=== PATIENT | male | born 1960 | race Caucasian/White ===

== ENCOUNTER 2021-09-15 17:29 | Inpatient (IN) | payer MEDICAID ==
[~2021-09-15] VITALS: Ht 183 cm; Wt 188.8 kg
[2021-09-15] MEDS ORDERED: oxyCODONE/APAP 5/325MG (PERCOCET 5) TABLET PO ONE (17:45)
[2021-09-15 17:58] LABS: BASOPHILS # (AUTO) 0.1 10^3/uL (0.0-0.1); BASOPHILS % (AUTO) 1 % (0-10); EOSINOPHILS # (AUTO) 0.1 10^3/uL (0.0-0.3); EOSINOPHILS % (AUTO) 0 % (0-10); HEMATOCRIT 37 % (40-54); HEMOGLOBIN 11.2 g/dL (13.3-17.7); LYMPHOCYTES # (AUTO) 1.6 10^3/uL (1.0-4.0); LYMPHOCYTES % (AUTO) 8 % (12-44); MEAN CORPUSCULAR HEMOGLOBIN 27 pg (25-34); MEAN CORPUSCULAR HGB CONC 30 g/dL (32-36); MEAN CORPUSCULAR VOLUME 88 fL (80-99); MEAN PLATELET VOLUME 10.1 fL (9.0-12.2); MONOCYTES # (AUTO) 1.6 10^3/uL (0.0-1.0); MONOCYTES % (AUTO) 8 % (0-12); NEUTROPHILS # (AUTO) 16.9 10^3/uL (1.8-7.8); NEUTROPHILS % (AUTO) 83 % (42-75); PLATELET COUNT 561 10^3/uL (130-400); WHITE BLOOD COUNT 20.5 10^3/uL (4.3-11.0)
[2021-09-15 18:09] LABS: ALBUMIN 2.9 GM/DL (3.2-4.5)
--- NOTE | 2021-09-15 18:10 | ED Lower Extremity ---
General Chief Complaint: Lower Extremity Stated Complaint: LEGS BLEEDING Source: patient, EMS Exam Limitations: no limitations (ANNIE LOGAN APRN) History of Present Illness Date Seen by Provider: Sep 15, 2021 Time Seen by Provider: 18:06 Initial Comments to ER by EMS from [facility] with reports of bleeding wounds to bilateral lower extremities. He has known cellulitis for several months. He just arrived here to [facility] on 09/10/2021 from [facility] at his home. No fevers or chills. He is set up to follow-up with Dr. Broderick. Is on oral antibiotics. Was sent to ER just due to concern of bleeding. Onset: last week Severity: moderate Pain/Injury Location: bilateral leg Method of Injury: unknown (ANNIE LOGAN APRN) Allergies and Home Medications Allergies Coded Allergies: No Known Drug Allergies (Unverified , 09/15/21) Patient Home Medication List Home Medication List Reviewed: Yes (ANNIE LOGAN APRN) Review of Systems Constitutional: see HPI EENTM: see HPI Respiratory: no symptoms reported Cardiovascular: no symptoms reported Genitourinary: no symptoms reported Musculoskeletal: no symptoms reported Skin: see HPI Psychiatric/Neurological: No Symptoms Reported (ANNIE LOGAN APRN) Physical Exam Vital Signs Vital Signs - First Documented 09/15/21 17:29 Temp 36.7 Pulse 134 Resp 24 B/P (MAP) 102/86 (91) Pulse Ox 98 O2 Delivery Nasal Cannula O2 Flow Rate 4.00 (BERENICE OCAMPO MD) Vital Signs Capillary Refill : (ANNIE LOGAN APRN) Height, Weight, BMI Height: '" Weight: lbs. oz. kg; BMI Method: General Appearance: WD/WN, no apparent distress, obese, other (Dyspneic) HEENT: PERRL/EOMI, normal ENT inspection Cardiovascular: no murmur, tachycardia Respiratory: lungs clear, normal breath sounds, no respiratory distress, no accessory muscle use Hips: bilateral hip non-tender, bilateral hip normal inspection, bilateral hip normal range of motion Legs: bilateral leg non-tender, bilateral leg normal inspection; left leg other (roughly 25x10 area on left and 60x44tr area of erythema/oozing blood, beefy red wound bases to BLE posteriorly. No purulence. ) Knees: bilateral knee non-tender, bilateral knee normal inspection, bilateral knee normal range of motion Ankles: bilateral ankle pain, bilateral ankle soft tissue tenderness Feet: bilateral foot soft tissue tenderness, bilateral foot swelling Neurologic/Psychiatric: alert, normal mood/affect Skin: normal color, warm/dry Purulent appearing urine within the tubing of his chronic indwelling Yepez catheter. (ANNIE LOGAN APRN) Gastrointestinal: non tender, soft, other (Morbidly obese. Pannus reflections do have some erythema suggestive of yeast infection) Back: normal inspection, no CVA tenderness, no vertebral tenderness (BERENICE OCAMPO MD) Progress/Results/Core Measures Results/Orders Lab Results Laboratory Tests Test 09/15/21 17:45 09/15/21 18:29 09/15/21 18:45 Range/Units White Blood Count 20.5 H 4.3-11.0 10^3/uL Red Blood Count 4.21 L 4.30-5.52 10^6/uL Hemoglobin 11.2 L 13.3-17.7 g/dL Hematocrit 37 L 40-54 % Mean Corpuscular Volume 88 80-99 fL Mean Corpuscular Hemoglobin 27 25-34 pg Mean Corpuscular Hemoglobin Concent 30 L 32-36 g/dL Red Cell Distribution Width 15.9 H 10.0-14.5 % Platelet Count 561 H 130-400 10^3/uL Mean Platelet Volume 10.1 9.0-12.2 fL Immature Granulocyte % (Auto) 1 % Neutrophils (%) (Auto) 83 H 42-75 % Lymphocytes (%) (Auto) 8 L 12-44 % Monocytes (%) (Auto) 8 0-12 % Eosinophils (%) (Auto) 0 0-10 % Basophils (%) (Auto) 1 0-10 % Neutrophils # (Auto) 16.9 H 1.8-7.8 10^3/uL Lymphocytes # (Auto) 1.6 1.0-4.0 10^3/uL Monocytes # (Auto) 1.6 H 0.0-1.0 10^3/uL Eosinophils # (Auto) 0.1 0.0-0.3 10^3/uL Basophils # (Auto) 0.1 0.0-0.1 10^3/uL Immature Granulocyte # (Auto) 0.2 H 0.0-0.1 10^3/uL Neutrophils % (Manual) 82 % Lymphocytes % (Manual) 9 % Monocytes % (Manual) 9 % Eosinophils % (Manual) 0 % Basophils % (Manual) 0 % Band Neutrophils 0 % Blood Morphology Comment NORMAL Prothrombin Time 15.5 H 12.2-14.7 SEC INR Comment 1.2 0.8-1.4 Activated Partial Thromboplast Time 36 H 24-35 SEC Sodium Level 142 135-145 MMOL/L Potassium Level 3.0 L 3.6-5.0 MMOL/L Chloride Level 105 98-107 MMOL/L Carbon Dioxide Level 21 21-32 MMOL/L Anion Gap 16 H 5-14 MMOL/L Blood Urea Nitrogen 22 H 7-18 MG/DL Creatinine 1.70 H 0.60-1.30 MG/DL Estimat Glomerular Filtration Rate 45 BUN/Creatinine Ratio 13 Glucose Level 153 H 70-105 MG/DL Lactic Acid Level 1.42 0.50-2.00 MMOL/L Calcium Level 8.7 8.5-10.1 MG/DL Corrected Calcium 9.6 8.5-10.1 MG/DL Total Bilirubin 0.4 0.1-1.0 MG/DL Aspartate Amino Transf (AST/SGOT) 16 5-34 U/L Alanine Aminotransferase (ALT/SGPT) 20 0-55 U/L Alkaline Phosphatase 87 40-136 U/L Troponin I 0.042 H <0.028 NG/ML C-Reactive Protein High Sensitivity 34.84 H 0.00-0.50 MG/DL B-Type Natriuretic Peptide 56.6 <100.0 PG/ML Total Protein 6.9 6.4-8.2 GM/DL Albumin 2.9 L 3.2-4.5 GM/DL Procalcitonin 0.57 H <0.10 NG/ML Urine Color ORANGE Urine Clarity CLEAR Urine pH 5.5 5-9 Urine Specific [place] >=1.030 1.016-1.022 Urine Protein 1+ H NEGATIVE Urine Glucose (UA) NEGATIVE NEGATIVE Urine Ketones NEGATIVE NEGATIVE Urine Nitrite NEGATIVE NEGATIVE Urine Bilirubin 2+ H NEGATIVE Urine Urobilinogen 1.0 < = 1.0 MG/DL Urine Leukocyte Esterase NEGATIVE NEGATIVE Urine RBC (Auto) 1+ H NEGATIVE Urine RBC 2-5 H /HPF Urine WBC NONE /HPF Urine Squamous Epithelial Cells NONE /HPF Urine Crystals NONE /LPF Urine Bacteria NEGATIVE /HPF Urine Casts NONE /LPF Urine Mucus NEGATIVE /LPF Urine Culture Indicated CULTURE PENDING Blood Gas Puncture Site UNK Blood Gas Patient Temperature 36.7 Arterial Blood pH 7.26 *L 7.37-7.43 Arterial Blood Partial Pressure CO2 50 H 35-45 MMHG Arterial Blood Partial Pressure O2 49 L 79-93 MMHG Arterial Blood HCO3 22 L 23-27 MMOL/L Arterial Blood Total CO2 23.0 21.0-31.0 MMOL/L Arterial Blood Oxygen Saturation 84 L 94-100 % Arterial Blood Base Excess -4.6 L -2.5-2.5 MMOL/L [place] Test YES-POS Blood Gas Ventilator Setting NO Blood Gas Inspired Oxygen 4 (BERENICE OCAMPO MD) My Orders Orders - BERENICE OCAMPO MD Lactated Ringers (Lr 1000 Ml Iv Solution (09/15/21 18:45) Arterial Blood Gas (09/15/21 18:35) Stool Culture (09/15/21 18:35) C Difficile Ag + Toxin A/B. (09/15/21 18:35) Isolation Central Supply Req (09/15/21 18:35) Troponin I [place] (09/15/21 18:35) Metoprolol Succinate (Xl) Tab (Toprol Xl (09/15/21 18:45) Aspirin Chewable Tablet (Baby Aspirin Ch (09/15/21 18:45) Lactated Ringers (Lr 1000 Ml Iv Solution (09/15/21 20:15) (BERENICE OCAMPO MD) Medications Given in ED Current Medications Medications Dose Ordered Sig/Magda Route Start Time Stop Time Status Last Admin Dose Admin Aspirin 162 mg ONCE ONCE PO 09/15/21 18:45 09/15/21 18:46 DC 09/15/21 18:59 162 MG Lactated Ringer's 1,000 ml @ 0 mls/hr Q0M ONCE IV 09/15/21 18:45 09/15/21 18:46 DC 09/15/21 19:00 0 MLS/HR Metoprolol Succinate 25 mg ONCE ONCE PO 09/15/21 18:45 09/15/21 18:46 DC 09/15/21 19:00 25 MG Ondansetron HCl 4 mg STK-MED ONCE .ROUTE 09/15/21 18:14 2/6/22 18:18 DC 09/15/21 18:18 8 MG Oxycodone/ Acetaminophen 2 tab ONCE ONCE PO 09/15/21 17:45 09/15/21 17:46 DC 09/15/21 19:00 2 TAB Piperacillin Sod/ Tazobactam Sod 4.5 gm/Sodium Chloride 100 ml @ 200 mls/hr ONCE ONCE IV 09/15/21 18:30 09/15/21 18:59 DC 09/15/21 19:32 200 MLS/HR (BERENICE OCAMPO MD) Vital Signs/I&O 09/15/21 17:29 Temp 36.7 Pulse 134 Resp 24 B/P (MAP) 102/86 (91) Pulse Ox 98 O2 Delivery Nasal Cannula O2 Flow Rate 4.00 (BERENICE OCAMPO MD) Progress Progress Note : Progress Note Assumed care of the patient from Dr. Murray at 1800. Patient is being transferred from bed to bedside commode at that time have stool. He does have Yepez catheter in place. 5: Patient did have large watery foul-smelling sto ol was quite a bit of volume. The operation was standing him up and cleaning him, I was able to visualize buttocks area. He is quite reddened in the area of the buttocks without obvious wound but there is significant skin breakdown starting. Does have poor hygiene in the periarea. This was cleaned as well. Yepez catheter has significant amount of sediment and purulence appearing drainage. This was replaced and a few 100 cc of dark yellow urine was obtained. This was sent for culture. He seemed to have much better flow after Yepez catheter change. He did have mild skin breakdown to the glans of the penis some thick sediment around penis. Overall doing better now. We will give 1 L of LR. ABG obtained and reviewed and I do believe this is venous. I did discuss the EKG with Dr. Lawrence as machine rate is mention acute ME. There is question of some ST elevation in the lateral leads and aVL although this is more likely right bundle branch block with old IMI image per Dr. Lawrence. We will check troponin, BNP and give ASA 162 mg p.o. as well as metoprolol 25 mg p.o. monitor patient. 1950: We are able to finally obtain chest x-ray. Labs would indicate infection and he does have cellulitis of both lower extremities that are oozing. This is why we gave a reduced dose aspirin as we wanted to see hemoglobin level. Hemoglobin seems to be okay at this point. Wounds were seen and dressed by Dr. Murray earlier and wound wraps are still holding currently. Patient will require admission for abnormal EKG very slight elevation in troponin. We have sent stool for C. difficile and culture and I do have concerns about C. difficile given his history of antibiotics due to cellulitis. He was started on Zosyn now pending cultures from urine, stool and blood. Pending admission. 2004: I did discuss the case with Dr. Sanders, on-call for critical access hospital. Patient's blood pressure is soft in the range of the 80s systolic with heart rate now 120. Still denies chest pain. We will initiate high-volume fluid resuscitation at 30 mL/kg based on ideal body weight since his BMIs 51. [place] body weight for him would be approximately 80 kg. We have ordered 2 L of LR and I will add a third which will exceed the 30 mL/kg dosing based on ideal body weight with requirement of 2400 mL. We will initiate sepsis protocol. After discussion with Dr. Sanders, we will initiate oral vancomycin as this is very likely C. difficile infection at this point and volume depletion. He does have slight bump in troponin at 0.04. Lactic acid is negative and procalcitonin is low. We will continue Zosyn for possibility of cardiac infiltrate. Patient will be initiated on DVT prophylaxis Lovenox with pharmacy to adjust. To be admitted to the ICU. In talking to the patient, patient does request DNR but is okay with intubation if will help short-term and would not be a long-term requirement. I will discuss with eICU team as well. 2049: I have discussed the case with the eICU on-call Reviewing all labs, x-ray and EKG findings and also discussed current therapy and orders from admitting physician. She agrees with plan and will follow. Blood pressures now 90s to 100 systolic. I attest to focus exam at this time. We will continue IV fluids with LR at 258-hour after the third liter of fluids. Patient very appreciative of the care and agrees with admission. (BERENICE OCAMPO MD) Initial ECG Impression Date: Sep 15, 2021 Initial ECG Impression Time: 18:33 Initial ECG Rate: 133 Initial ECG Rhythm: S.Tach Comment Sinus tachycardia with right bundle branch block and PVCs noted. Question of lateral infarct but likely old ME after discussion and review with Dr. Lawrence. No previous available for comparison. Extreme left axis deviation noted. Interpreted by me and discussed with splitting machine operator helper. (BERENICE OCAMPO MD) Diagnostic Imaging Diagonstic Imaging: Xray Plain Films/CT/US/NM/MRI: chest Comments NAME: BENNETT KENDALL JR [facility] REC#: [id number] PT STATUS: REG ER : 1960 PHYSICIAN: PREMA MURRAY MD ADMIT DATE: 09/15/21/ER Draft Date of Exam:09/15/21 CHEST 1 VIEW, AP/PA ONLY INDICATION: Bleeding in the legs. EXAMINATION: Chest. 09/15/2021. FINDINGS: There is linear atelectasis at the lung bases with atelectasis versus infiltrate in the right midlung. There is increased density in the left upper lung superimposed upon the 1st and 2nd anterior rib ends likely overlying structures although a focal infiltrate in the region not excluded IMPRESSION: Scattered atelectasis and/or infiltrates, as above, recommend follow-up. Dictated on workstation # [id number] Dict: 09/15/211953 Trans: 09/15/211956 [facility] [id number] Interpreted by: BRADY VLADEZ MD Electronically signed by: (BERENICE OCAMPO MD) Critical Care Note Critical Care Start Time: 18:00 Stop Time: 20:50 Total Time (minutes) 45 minutes. Time excludes separately billable items and procedures. See progress note for details. (BERENICE OCAMPO MD) Departure Communication (Admissions) Time/Spoke to Admitting Phy: 20:05 Time/Spoke to Consulting Phy: 20:25 (BERENICE OCAMPO MD) Impression Primary Impression: Severe sepsis Additional Impressions: Diarrhea Qualified Codes: R19.7 - Diarrhea, unspecified Volume depletion Cellulitis of both lower extremities Abnormal EKG Elevated troponin Bilateral pulmonary infiltrates on chest x-ray Disposition: ADMITTED INPATIENT Condition: Stable Admissions Decision to Admit Reason: Admit from ER (General) Decision to Admit/Date: Sep 15, 2021 Time/Decision to Admit Time: 20:05 (BERENICE OCAMPO MD) Departure-Patient Inst. Referrals: CARLOS SHORT MD (PCP/Family) Primary Care Physician ANNIE LOGAN APRN Sep 15, 2021 18:10 BERENICE OCAMPO MD Sep 15, 2021 19:55
[2021-09-15 18:11] LABS: CALCIUM 8.7 MG/DL (8.5-10.1); INR 1.2 (0.8-1.4); PROTHROMBIN TIME PATIENT 15.5 SEC (12.2-14.7)
[2021-09-15 18:12] LABS: TOTAL PROTEIN 6.9 GM/DL (6.4-8.2)
[2021-09-15 18:14] LABS: BILIRUBIN,TOTAL 0.4 MG/DL (0.1-1.0)
[2021-09-15] MEDS ORDERED: ONDANSETRON 4 MG/2 ML (SDV) Z0FRAN ONE (18:14)
[2021-09-15 18:15] LABS: CREATININE SERUM 1.7 MG/DL (0.60-1.30)
[2021-09-15 18:28] LABS: BAND NEUTROPHILS 0 %; BASOPHILS % (MANUAL) 0 %; EOSINOPHILS % (MANUAL) 0 %; LYMPHOCYTES % (MANUAL) 9 %; MONOCYTES % (MANUAL) 9 %; NEUTROPHILS % (MANUAL) 82 %; RBC MORPH NORMAL
[2021-09-15] MEDS ORDERED: PIPERACILLIN SODIUM/TAZOBACTAM 4.5 GM in NS (IVPB) 100 ML IV ONE (18:30)
[2021-09-15 18:35] LABS: CLARITY,URINE CLEAR; COLOR,URINE ORANGE; GLUCOSE, URINE (UA) NEGATIVE (NEGATIVE); KETONES,URINE NEGATIVE (NEGATIVE); LEUKOCYTE ESTERASE ,URINE NEGATIVE (NEGATIVE); NITRITE,URINE NEGATIVE (NEGATIVE); PH,URINE 5.5 (5-9); PROTEIN,URINE 1+ (NEGATIVE)
[2021-09-15] MEDS ORDERED: ASPIRIN 81 MG CHEW (CHILDREN'S ASA) PO ONE (18:45)
[2021-09-15] MEDS ORDERED: LACTATED RINGERS 1,000 ML IV ONE ×4 (18:45→22:07)
[2021-09-15 18:52] LABS: ABG BASE EXCESS -4.6 MMOL/L (-2.5-2.5); ABG OXYGEN SATURATION 84 % (94-100); ABG PCO2 50 MMHG (35-45); ABG PO2 49 MMHG (79-93); ALLENS TEST YES-POS; INSPIRED O2 4; VENTILATOR NO
[2021-09-15 18:53] LABS: ABG PH 7.26 (7.37-7.43); PATIENT TEMP 36.7
[2021-09-15 18:58] LABS: BACTERIA,URINE NEGATIVE /HPF; BILIRUBIN,URINE 2+ (NEGATIVE)
--- NOTE | 2021-09-15 19:57 | Diagnostic Imaging Report ---
INDICATION: Bleeding in the legs. EXAMINATION: Chest. 09/15/2021. FINDINGS: There is linear atelectasis at the lung bases with atelectasis versus infiltrate in the right midlung. There is increased density in the left upper lung superimposed upon the 1st and 2nd anterior rib ends likely overlying structures although a focal infiltrate in the region not excluded IMPRESSION: Scattered atelectasis and/or infiltrates, as above, recommend follow-up. Dictated by: Dictated on workstation # [id number]
[2021-09-15] MEDS ORDERED: ENOXAPARIN 40 MG/0.4 ML (LOVENOX) SYR SC ONE (20:45)
[2021-09-15 22:04] VITALS: BP 107/49
--- NOTE | 2021-09-15 22:10 | Tele-ICU Progress Note ---
Progress Note Brought to ED for diarrhea, bleeding wounds of LE . Was found to be hypotensive and with Leukocytosis. Awake and alert. Labs, CXR and orders reviewed. Pt was viewed on camera, appears w/o any distress and conversing with the RN. BP 107/49 with MAP 65 mmHg. 1. Sepsis POA 2/2 to LE weeping cellulitis chronic Diarrhea possible PNA Hypotension responded to IVF. 30 ml/kg IVF given, LA 1.4 IV abx started Blood , stool and urine c/s sent C-diff ordered and stool studies. 2.Ac/ chr hypercapnic resp failure , likely 2/2 LORIN BiPAP q HS 3. APRIL continue IVF, avoid nephrotoxins, dose meds renally 4.Possible PNA , HAP on Abx 5.Morbid obesity / LORIN Bipap q HS follow up cultures, labs in am On DVT PPx , check US venous dopplers, doubt if possible given the LE wounds EKG RBBB, ASA, BB given, cards notified by ED-MD. Interventions Minor-Other: Sepsis, diarrhea , LE cellulitis Focused Exam Lactate Level 09/15/21 17:45: Lactic Acid Level 1.42 09/15/21 22:00: Height, Weight, BMI Height: '" Weight: lbs. oz. kg; 51.18 BMI Method: Lactic Acid Level Laboratory Tests Test 09/15/21 22:00 FERNANDA ALEJANDRA MD Sep 15, 2021 22:10
[2021-09-15] MEDS: VANCOMYCIN 125 MG CAPSULE PO SCH (22:11)
[2021-09-15] MEDS ORDERED: RT-ALBUTEROL SULF 2.5 MG/3 ML PRE-MIX VIAL INH PRN (22:15)
[2021-09-15] MEDS ORDERED: EPINEPHrine 1 MG INJECTION 4 MG in NS (IVPB) 248 ML IV SCH (22:45)
[2021-09-15] MEDS: VASOPRESSIN INJECTION 20 UNIT in NS (IVPB) 100 ML IV SCH (22:55)
[2021-09-15] MEDS: NOREPINEPHRINE 8 MG/250 ML 250 ML IV SCH (22:55)
[2021-09-15] MEDS ORDERED: POTASSIUM CL 10MEQ/50ML IVPB 0 ML IV ONE (22:57)
[2021-09-15] MEDS ORDERED: POTASSIUM CL 10MEQ/50ML IVPB 50 ML IV SCH (23:00)
[2021-09-15] MEDS ORDERED: KCL 20 MEQ TAB (K-DUR) PO ONE ×2 (23:00→23:07)
[2021-09-15] MEDS: LACTATED RINGERS 1,000 ML IV SCH (23:08)
[2021-09-15] MEDS ORDERED: LISI10TA25 PO (23:59)
[2021-09-15] MEDS ORDERED: SILV10PO2 MC (23:59)
[2021-09-15] MEDS ORDERED: ACET250T3 PO (23:59)
[2021-09-15] MEDS ORDERED: TERB25PO MC (23:59)
[2021-09-15] MEDS ORDERED: FURO80TA3 PO (23:59)
[2021-09-15] MEDS ORDERED: THEO400T PO (23:59)
[2021-09-15] MEDS ORDERED: AMLO-250 PO (23:59)
[2021-09-16] MEDS: LACTATED RINGERS 1,000 ML IV SCH ×6 (02:06→23:08)
[2021-09-16 04:10] LABS: BASOPHILS # (AUTO) 0.1 10^3/uL (0.0-0.1); BASOPHILS % (AUTO) 0 % (0-10); EOSINOPHILS # (AUTO) 0.2 10^3/uL (0.0-0.3); EOSINOPHILS % (AUTO) 1 % (0-10); HEMATOCRIT 33 % (40-54); HEMOGLOBIN 9.6 g/dL (13.3-17.7); LYMPHOCYTES # (AUTO) 1.1 10^3/uL (1.0-4.0); LYMPHOCYTES % (AUTO) 5 % (12-44); MEAN CORPUSCULAR HEMOGLOBIN 27 pg (25-34); MEAN CORPUSCULAR HGB CONC 29 g/dL (32-36); MEAN CORPUSCULAR VOLUME 91 fL (80-99); MEAN PLATELET VOLUME 10.1 fL (9.0-12.2); MONOCYTES # (AUTO) 1.5 10^3/uL (0.0-1.0); MONOCYTES % (AUTO) 7 % (0-12); NEUTROPHILS # (AUTO) 18.1 10^3/uL (1.8-7.8); NEUTROPHILS % (AUTO) 86 % (42-75); PLATELET COUNT 467 10^3/uL (130-400); WHITE BLOOD COUNT 21.2 10^3/uL (4.3-11.0)
[2021-09-16 04:22] LABS: ALBUMIN 2.4 GM/DL (3.2-4.5)
[2021-09-16 04:23] LABS: POTASSIUM 2.7 MMOL/L (3.6-5.0)
[2021-09-16 04:24] LABS: CALCIUM 8.2 MG/DL (8.5-10.1)
[2021-09-16 04:25] LABS: TOTAL PROTEIN 5.7 GM/DL (6.4-8.2)
[2021-09-16 04:27] LABS: BILIRUBIN,TOTAL 0.4 MG/DL (0.1-1.0)
[2021-09-16 04:28] LABS: PHOSPHORUS 6.4 MG/DL (2.3-4.7)
[2021-09-16 04:29] LABS: CREATININE SERUM 2.13 MG/DL (0.60-1.30)
[2021-09-16] MEDS: NOREPINEPHRINE 8 MG/250 ML 250 ML IV SCH ×3 (04:33→22:14)
[2021-09-16] MEDS ORDERED: KCL 20 MEQ TAB (K-DUR) PO ONE ×2 (04:45→09:00)
[2021-09-16] MEDS: PIPERACILLIN SODIUM/TAZOBACTAM 4.5 GM in NS (IVPB) 100 ML IV SCH ×3 (05:12→21:29)
[2021-09-16] MEDS: VANCOMYCIN 125 MG CAPSULE PO SCH ×4 (05:12→23:08)
[2021-09-16] MEDS: ENOXAPARIN 60 MG/0.6 ML (LOVENOX) SYR SC SCH ×2 (08:11→21:29)
[2021-09-16] MEDS: RT-ALBUTEROL SULF 2.5 MG/3 ML PRE-MIX VIAL INH SCH ×2 (08:32→23:01)
[2021-09-16] MEDS: VASOPRESSIN INJECTION 20 UNIT in NS (IVPB) 100 ML IV SCH ×2 (08:55→21:30)
[2021-09-16] MEDS: NS IV 1000 ML 1,000 ML IV SCH ×2 (11:12→21:29)
--- NOTE | 2021-09-16 11:54 | Consultation-Cardiology ---
HPI-Cardiology Cardiology Consultation: Date of Consultation 09/16/21 Time Seen by a Provider: 09:30 Date of Admission Attending Physician Patrick Sanders MD Admitting Physician Satinder Edmonds MD Consulting Physician MARIA D LUO MD, MA, FACP, FACC, FSCAI, CCDS HPI: 61 yo man who was sent to the ER from rehab where he had gone for eval and treatment of chronic, bilat leg swelling and redness and superficial wounds. Notes bilateral leg weakness that has made ambulation difficult. Leg weakness is chronic and slowly progressive. Notes gen malaise and weakness. Has had intermittent diarrhea for several days. Denies n/v. Denies cp or palp or syncope. No shortness of breath with rest. Chronic, moderate, exertional shortness of breath has not changed in the recent past Review of Systems-Cardiology Review of Systems Constitutional: malaise, tiredness; No weight loss, No weight gain Eyes: No vision change Ears/Nose/Throat: No ear discharge, No nasal drainage, No recent hearing loss Respiratory: As described under HPI Cardiovascular: As described under HPI Gastrointestinal: As described under HPI Genitourinary: No dysuria, No hematuria Musculoskeletal: back pain (chronic), joint pain (chronic) Skin: As described under HPI Psychiatric/Neurological: No seizure, No focal weakness, No syncope Hematologic: other (some, intermittent bleeding from leg wounds but doesn't report any bleeding abnormalities) WGX-Jqanhr-Kfluwx Hx Patient Social History Smoking Status: Former Smoker Have you traveled recently?: No Alcohol Use?: No Pt feels they are or have been: No Past Medical History PMH As described under Assessment. Family Medical History Family Medical History: Denies fam h/o early CAD or SCD Allergies and Home Medications Allergies Coded Allergies: No Known Drug Allergies (Unverified , 09/15/21) Patient Home Medication List Home Medication List Reviewed: Yes Acetazolamide (Acetazolamide) 250 Mg Tablet, 250 MG PO DAILY, (Reported) Entered as Reported by: NURA BOUCHER on 09/15/212358 Last Action: New Order Amlodipine Besylate (Amlodipine Besylate) 5 Mg Tablet, 5 MG PO DAILY, (Reported) Entered as Reported by: NURA BOUCHER on 09/15/212358 Last Action: Held Furosemide (Furosemide) 80 Mg Tablet, 80 MG PO DAILY, (Reported) Entered as Reported by: NURA BOUCHER on 09/15/212358 Last Action: New Order Lisinopril (Lisinopril) 10 Mg Tablet, 10 MG PO DAILY, (Reported) Entered as Reported by: NURA BOUCHER on 09/15/212358 Last Action: New Order Silver Sulfadiazine (Silver Sulfadiazine) 10 Gm Powder, 10 GM MC NEEDED, (Reported) Entered as Reported by: NURA BOUCHER on 09/15/212358 Last Action: New Order Terbinafine HCl (Terbinafine HCl) 25 Gm Powder, 25 GM MC NEEDED, (Reported) Entered as Reported by: NURA BOUCHER on 09/15/212358 Last Action: New Order Theophylline Anhydrous (Theophylline) 400 Mg Tablet.er, 400 MG PO DAILY, (Reported) Entered as Reported by: NURA BOUCHER on 09/15/212358 Last Action: New Order Physical Exam-Cardiology Physical Exam Vital Signs/I&O 09/16/21 09/16/21 09/16/21 09/16/21 00:00 01:00 01:00 02:00 Pulse 133 131 131 129 Resp 25 28 22 B/P (MAP) 116/45 112/63 118/61 Pulse Ox 98 97 93 O2 Delivery Nasal Cannula Nasal Cannula Nasal Cannula O2 Flow Rate 4.50 4.50 4.50 09/16/21 09/16/21 09/16/21 09/16/21 03:00 04:00 04:00 04:15 Temp 36.9 Pulse 130 128 Resp 25 23 B/P (MAP) 116/49 155/90 Pulse Ox 96 96 95 O2 Delivery Nasal Cannula Nasal Cannula Nasal Cannula Nasal Cannula O2 Flow Rate 4.50 4.50 4.50 4.50 09/16/21 09/16/21 09/16/21 09/16/21 05:00 06:00 06:39 07:00 Pulse 128 120 122 Resp 29 20 B/P (MAP) 103/60 99/41 Pulse Ox 95 97 O2 Delivery Nasal Cannula Nasal Cannula Nasal Cannula O2 Flow Rate 4.50 4.50 3.00 09/16/21 09/16/21 09/16/21 09/16/21 07:00 08:00 08:00 08:11 Temp 36.7 Pulse 124 124 Resp 27 39 B/P (MAP) 100/67 90/56 Pulse Ox 96 94 O2 Delivery Nasal Cannula Nasal Cannula Nasal Cannula O2 Flow Rate 3.00 3.00 3.00 09/16/21 09/16/21 09/16/21 09/16/21 09:00 10:00 10:29 11:00 Pulse 116 112 112 Resp 21 30 30 B/P (MAP) 98/60 105/88 105/88 Pulse Ox 99 94 94 O2 Delivery Nasal Cannula Nasal Cannula Nasal Cannula Nasal Cannula O2 Flow Rate 3.00 3.00 4.00 4.00 09/16/21 09/16/21 11:16 11:28 Temp 36.8 Pulse Ox 95 O2 Delivery Nasal Cannula O2 Flow Rate 4.00 09/16/21 00:00 Intake Total 3100 ml Output Total 125 ml Balance 2975 ml Capillary Refill : Less Than 3 Seconds Constitutional: AAO x 3, well-developed, well-nourished, other (obese) HEENT: PERRL, other, EOMI, hearing is well preserved; No xanthelasmas are seen Neck: carotid pulses are 2 + bilaterally, with good upstrokes Respiratory: No accessory muscle use; other (fair air entry, diminished at the bases) Cardiovascular: regular rate-rhythm, S1 and S2, systolic murmur (soft OCTAVIO at card base) Gastrointestinal: No tender; distended; No guarding, No rebound Extremities: other (both lower legs wrapped in bandages that were not removed); No clubbing, No cyanosis; significant edema Data Review Labs Laboratory Tests 09/15/21 17:45: White Blood Count 20.5H, Red Blood Count 4.21L, Hemoglobin 11.2L, Hematocrit 37L , Mean Corpuscular Volume 88, Mean Corpuscular Hemoglobin 27, Mean Corpuscular Hemoglobin Concent 30L, Red Cell Distribution Width 15.9H, Platelet Count 561H, Mean Platelet Volume 10.1, Immature Granulocyte % (Auto) 1, Neutrophils (%) (Auto) 83H, Lymphocytes (%) (Auto) 8L, Monocytes (%) (Auto) 8, Eosinophils (%) (Auto) 0, Basophils (%) (Auto) 1, Neutrophils # (Auto) 16.9H, Lymphocytes # (Auto) 1.6, Monocytes # (Auto) 1.6H, Eosinophils # (Auto) 0.1, Basophils # (Auto) 0.1, Immature Granulocyte # (Auto) 0.2H, Neutrophils % (Manual) 82, Lymphocytes % (Manual) 9, Monocytes % (Manual) 9, Eosinophils % (Manual) 0, Basophils % (Manual) 0, Band Neutrophils 0, Blood Morphology Comment NORMAL, Prothrombin Time 15.5H, INR Comment 1.2, Activated Partial Thromboplast Time 36H , Sodium Level 142, Potassium Level 3.0L, Chloride Level 105, Carbon Dioxide Level 21, Anion Gap 16H, Blood Urea Nitrogen 22H, Creatinine 1.70H, Estimat Glomerular Filtration Rate 45, BUN/Creatinine Ratio 13, Glucose Level 153H, Lactic Acid Level 1.42, Calcium Level 8.7, Corrected Calcium 9.6, Total Bilirubin 0.4, Aspartate Amino Transf (AST/SGOT) 16, Alanine Aminotransferase (ALT/SGPT) 20, Alkaline Phosphatase 87, Troponin I 0.042H, C-Reactive Protein High Sensitivity 34.84H, B-Type Natriuretic Peptide 56.6, Total Protein 6.9, Albumin 2.9L, Procalcitonin 0.57H 09/15/21 18:29: Urine Color ORANGE, Urine Clarity CLEAR, Urine pH 5.5, Urine Specific [place] >=1.030, Urine Protein 1+H, Urine Glucose (UA) NEGATIVE, Urine Ketones NEGATIVE, Urine Nitrite NEGATIVE, Urine Bilirubin 2+H, Urine Urobilinogen 1.0, Urine Leukocyte Esterase NEGATIVE, Urine RBC (Auto) 1+H, Urine RBC 2-5H, Urine WBC NONE, Urine Squamous Epithelial Cells NONE, Urine Crystals NONE, Urine Bacteria NEGATIVE, Urine Casts NONE, Urine Mucus NEGATIVE, Urine Culture Indicated CULTURE PENDING 09/15/21 18:45: Blood Gas Puncture Site UNK, Blood Gas Patient Temperature 36.7, Arterial Blood pH 7.26*L, Arterial Blood Partial Pressure CO2 50H, Arterial Blood Partial Pressure O2 49L, Arterial Blood HCO3 22L, Arterial Blood Total CO2 23.0, Arterial Blood Oxygen Saturation 84L, Arterial Blood Base Excess -4.6L, Kendall Test YES-POS, Blood Gas Ventilator Setting NO, Blood Gas Inspired Oxygen 4 09/15/21 22:00: Lactic Acid Level 1.02 09/16/21 03:49: White Blood Count 21.2H, Red Blood Count 3.60L, Hemoglobin 9.6L, Hematocrit 33L, Mean Corpuscular Volume 91, Mean Corpuscular Hemoglobin 27, Mean Corpuscular Hemoglobin Concent 29L, Red Cell Distribution Width 16.0H, Platelet Count 467H, Mean Platelet Volume 10.1, Immature Granulocyte % (Auto) 1, Neutrophils (%) (Auto) 86H, Lymphocytes (%) (Auto) 5L, Monocytes (%) (Auto) 7, Eosinophils (%) (Auto) 1, Basophils (%) (Auto) 0, Neutrophils # (Auto) 18.1H, Lymphocytes # (Auto) 1.1, Monocytes # (Auto) 1.5H, Eosinophils # (Auto) 0.2, Basophils # (Auto) 0.1, Immature Granulocyte # (Auto) 0.2H, Sodium Level 144, Potassium Level 2.7L, Chloride Level 105, Carbon Dioxide Level 25, Anion Gap 14, Blood Urea Nitrogen 28H, Creatinine 2.13H, Estimat Glomerular Filtration Rate 35, BUN/Creatinine Ratio 13, Glucose Level 149H, Calcium Level 8.2L, Corrected Calcium 9.5, Phosphorus Level 6.4H, Magnesium Level 2.0, Total Bilirubin 0.4, Aspartate Amino Transf (AST/SGOT) 17, Alanine Aminotransferase (ALT/SGPT) 14, Alkaline Phosphatase 83, Troponin I 0.051H, Total Protein 5.7L, Albumin 2.4L Microbiology 09/15/21 Urine Culture - Preliminary, Resulted NO GROWTH 09/15/21 C. difficile GDH Antigen & Toxins - Final, Resulted 09/15/21 Stool Culture, Resulted Pending Laboratory Tests 09/15/21 17:45 09/16/21 03:49 A/P-Cardiology Assessment/Admission Diagnosis C Diff enteritis and sepsis Hypotension: low grade septic shock Morbid obesity Abnormal ECG, suggestive of old IMI Minimal troponin elevation, likely minimal type 2 PR due to hypotension Bilat leg swelling, likely due to venous insuff Discussion and Recomendations * Management of C Diff and sepsis is with the attending svce * Echo * ASA * Replenish lytes * Monitor labs * Further recs to be based on his hosp course MARIA D LUO MD FACP FAC CCDS Sep 16, 2021 11:54
--- NOTE | 2021-09-16 12:06 | History & Physical ---
BENNETT NELSON 09/16/21 1206: History of Present Illness History of Present Illness Reason for visit/HPI Brief hospital course: Patient admitted for hypotension, diarrhea, and lower extremity wounds. Arrived to ED with soft pressures that responded to LR bolus. Had elevated troponins and RBBB on EKG and was given ASA. CXR showed scattered atelectasis and/or infiltrates. ABG suggestive of LORIN. Positive C diff this AM. Had soft pressures again this AM requiring PICC placement. Lower extremity dressing change with blue green tint, sweet smell, and hemosiderin positivity awaiting cultures. HPI: Lower extremity wounds began May 2021 with prior hospitalization. Reports he received Zosyn during last hospitization and was completing oral antibiotics when diarrhea started. Reports 4/10 pain in legs after dressing change today. Reports coughing for several days and denies sputum. Will have intermittent leg swelling approximately once a week and sleeps with 2-3 pillows under head. Denies having a history of heart disease. Refused BiPAP last night. Social: Reports living on the sixth floor of his apartment building with elevator. Date of Admission Sep 15, 2021 at 20:05 Date Seen by a Provider: Sep 16, 2021 Time Seen by a Provider: 10:30 I consulted on this patient on 09/16/21 11:52 Attending Physician Patrick Sanders MD Admitting Physician Satinder Edmonds MD Consult Janae Lawrence Allergies and Home Medications Allergies Coded Allergies: No Known Drug Allergies (Unverified , 09/15/21) Patient Home Medication List Home Medication List Reviewed: No Acetaminophen (Tylenol) 325 Mg Tablet, 650 MG PO Q6H PRN for PAIN-MILD (1-4), (Reported) Entered as Reported by: JASSON TERRY on 09/16/21 1356 Last Action: Reviewed Acetazolamide (Acetazolamide) 250 Mg Tablet, 250 MG PO DAILY, (Reported) Entered as Reported by: NURA BOUCHER on 09/15/21 0884 Last Action: Reviewed Cefdinir (Cefdinir) 300 Mg Capsule, 300 MG PO BID, (Reported) Entered as Reported by: JASSON TERRY on 09/16/21 8087 Last Action: Reviewed Furosemide (Furosemide) 80 Mg Tablet, 80 MG PO DAILY, (Reported) Entered as Reported by: NURA BOUCHER on 09/15/212358 Last Action: Reviewed Lisinopril (Lisinopril) 10 Mg Tablet, 10 MG PO DAILY, (Reported) Entered as Reported by: NURA BOUCHER on 09/15/212358 Last Action: Reviewed Oxycodone HCl/Acetaminophen (Oxycodone-Acetaminophen 10-325) 1 Each Tablet, 1 EACH PO Q6H PRN for PAIN-MODERATE (5-7), (Reported) Entered as Reported by: JASSON TERRY on 09/16/21 8956 Last Action: Reviewed Theophylline Anhydrous (Theophylline) 400 Mg Tablet.er, 400 MG PO DAILY, (Reported) Entered as Reported by: NURA BOUCHER on 09/15/212358 Last Action: Reviewed Discontinued Medications Amlodipine Besylate (Amlodipine Besylate) 5 Mg Tablet, 5 MG PO DAILY, (Reported) Discontinued Reason: No Longer Taking Entered as Reported by: NURA BOUCHER on 09/15/212358 Last Action: Discontinued Silver Sulfadiazine (Silver Sulfadiazine) 10 Gm Powder, 10 GM MC NEEDED, (Reported) Discontinued Reason: No Longer Taking Entered as Reported by: NURA BOUCHER on 09/15/212358 Last Action: Discontinued Terbinafine HCl (Terbinafine HCl) 25 Gm Powder, 25 GM MC NEEDED, (Reported) Discontinued Reason: No Longer Taking Entered as Reported by: NURA BOUCHER on 09/15/212358 Last Action: Discontinued Past Esshtoq-Nlople-Qgvaye Hx Patient Social History Tobacco Use?: No Smoking Status: Former Smoker Use of E-Cig and/or Vaping dev: No Substance use?: No Alcohol Use?: No Pt feels they are or have been: No Immunizations Up To Date First/Initial COVID19 Vaccinat: JULY 2021 Second COVID19 Vaccination Balbir: SCHEDULED Tetanus Booster (TDap): Unknown Hepatitis A: No Hepatitis B: No Current Status Advance Directives: No Communicates: Verbally Primary Language: Afghan Preferred Spoken Language: Afghan Is interpretation needed?: No Sensory deficits: Vision impairment Implanted or Applied Medical D: None Review of Systems Constitutional: see HPI, other (Obese) Respiratory: cough; No hemoptysis; orthopnea; No phlegm Cardiovascular: see HPI Gastrointestinal: diarrhea Genitourinary: no symptoms reported Skin: change in color (Chronic BLLE wounds), dryness Psychiatric/Neurological: No Symptoms Reported Physical Exam Vital Signs Vital Signs - First Documented 09/15/21 09/16/21 17:29 16:25 Temp 36.7 Pulse 134 Resp 24 B/P (MAP) 102/86 (91) Pulse Ox 98 O2 Delivery Nasal Cannula O2 Flow Rate 4.00 FiO2 45 Capillary Refill : Less Than 3 Seconds Height, Weight, BMI Height: '" Weight: lbs. oz. kg; 51.18 BMI Method: General Appearance: Obese Eyes: Bilateral Eye PERRL, Bilateral Eye EOMI Neck: No JVD Respiratory: Normal Breath Sounds, No Accessory Muscle Use Cardiovascular: Regular Rate, Rhythm, Systolic Murmur, Tachycardia Gastrointestinal: No Tenderness (Difficult to perform given body habitus); Other Extremity: Inflammation (BLLE erythema and scaling with small amt serosangunous drainage on anterior tibias during dressing change), Pedal Edema (Trace), Swelling Neurologic/Psychiatric: Alert, Oriented x3 Skin: Rash Assessment/Plan Assessment and Plan ASSESSMENT Patient in severe sepsis possibly secondary to chronic lower extremity wounds, C diff, or pneumonia given elevated CRP and procal. Intermittent BLLE and RBBB on EKG suggestive of underlying cardiac disease contributing to chronic lower extremity wounds. PLAN Severe sepsis -Required LR fluid bolus on admission and required PICC line this AM -Wound care to perform dressing changes -Leukocytosis >Zosyn pending wound culture sensitivities >On levophed drip NSTEMI -Elevated troponins, continue to trend -ASA on admission -Cards consulted Diarrhea -On oral antibiotics before admission, C diff positive >PO vancomycin Possible CAP or HAP -Satting 99% on RA during day -Patient refused BiPAP last night -on Zosyn Cellulitis >Zosyn APRIL -renally adjust meds -replace electrolytes -K 2/6 -Mg /6 LORIN -ABG suggestive of LORIN or obesity hypoventilation syndrome Admission Diagnosis Severe sepsis Admission Status: Inpatient Order (span 2 midnights) Reason for Inpatient Admission: Patient admitted for severe sepsis requiring vasopressors and IV antibiotics ROMEO DE LA CRUZ MD 09/16/21 9829: Allergies and Home Medications Allergies Coded Allergies: No Known Drug Allergies (Unverified , 09/15/21) Patient Home Medication List Home Medication List Reviewed: Yes Acetaminophen (Tylenol) 325 Mg Tablet, 650 MG PO Q6H PRN for PAIN-MILD (1-4), (Reported) Entered as Reported by: JASSON TERRY on 09/16/211355 Last Action: Reviewed Acetazolamide (Acetazolamide) 250 Mg Tablet, 250 MG PO DAILY, (Reported) Entered as Reported by: NURA BOUCHER on 09/15/212358 Last Action: Reviewed Cefdinir (Cefdinir) 300 Mg Capsule, 300 MG PO BID, (Reported) Entered as Reported by: JASSON TERRY on 09/16/211355 Last Action: Reviewed Furosemide (Furosemide) 80 Mg Tablet, 80 MG PO DAILY, (Reported) Entered as Reported by: NURA BOUCHER on 09/15/212358 Last Action: Reviewed Lisinopril (Lisinopril) 10 Mg Tablet, 10 MG PO DAILY, (Reported) Entered as Reported by: NURA BOUCHER on 09/15/212358 Last Action: Reviewed Oxycodone HCl/Acetaminophen (Oxycodone-Acetaminophen 10-325) 1 Each Tablet, 1 EACH PO Q6H PRN for PAIN-MODERATE (5-7), (Reported) Entered as Reported by: JASSON TERRY on 09/16/211355 Last Action: Reviewed Theophylline Anhydrous (Theophylline) 400 Mg Tablet.er, 400 MG PO DAILY, (Reported) Entered as Reported by: NURA OBUCHER on 09/15/212358 Last Action: Reviewed Discontinued Medications Amlodipine Besylate (Amlodipine Besylate) 5 Mg Tablet, 5 MG PO DAILY, (Reported) Discontinued Reason: No Longer Taking Entered as Reported by: NURA BOUCHER on 09/15/212358 Last Action: Discontinued Silver Sulfadiazine (Silver Sulfadiazine) 10 Gm Powder, 10 GM MC NEEDED, (Reported) Discontinued Reason: No Longer Taking Entered as Reported by: NURA BOUCHER on 09/15/212358 Last Action: Discontinued Terbinafine HCl (Terbinafine HCl) 25 Gm Powder, 25 GM MC NEEDED, (Reported) Discontinued Reason: No Longer Taking Entered as Reported by: NURA BOUCHER on 09/15/212358 Last Action: Discontinued Past Cxkxirk-Tbefui-Dwggdq Hx Patient Social History Living Status: Recent SNF placement Review of Systems Constitutional: weakness, other (morbidly obese) Respiratory: cough, dyspnea on exertion; No hemoptysis; orthopnea; No phlegm; short of breath Cardiovascular: edema, palpitations Gastrointestinal: abdominal pain, diarrhea, loss of appetite; No nausea, No vomiting Genitourinary: no symptoms reported; No dysuria, No frequency, No hematuria Musculoskeletal: no symptoms reported Skin: change in color (Chronic BLLE wounds), dryness Psychiatric/Neurological: Anxiety Physical Exam General Appearance: Moderate Distress, Obese Neck: Full Range of Motion, Supple Respiratory: Normal Breath Sounds, Crackles; No Wheezing Cardiovascular: Regular Rate, Rhythm, Systolic Murmur, Tachycardia Gastrointestinal: Normal Bowel Sounds, Soft, Distended Extremity: Inflammation (BLLE erythema and scaling with small amt serosangunous drainage on anterior tibias during dressing change), Pedal Edema (Trace), Swelling Neurologic/Psychiatric: Alert, Oriented x3, No Motor/Sensory Deficits Skin: Rash Lymphatic: No Adenopathy Assessment/Plan Assessment and Plan Problems: (1) Severe sepsis Status: Acute (2) NSTEMI (non-ST elevated myocardial infarction) Status: Acute (3) Acute and chronic respiratory failure with hypoxia Status: Acute (4) Acute kidney failure Status: Acute Qualifiers: Qualified Codes: N17.9 - Acute kidney failure, unspecified (5) C. difficile diarrhea Status: Acute (6) Cellulitis of both lower extremities Status: Acute (7) Anasarca Status: Acute (8) Acute DVT (deep venous thrombosis) Status: Acute Qualifiers: Qualified Codes: I82.432 - Acute embolism and thrombosis of left popliteal vein (9) Normocytic anemia Status: Acute (10) Hypokalemia Status: Acute Admission Diagnosis Admission Status: Inpatient Order (span 2 midnights) Reason for Inpatient Admission: Requires ICU care and close monitoring due to unstable vital signs Supervisory-Addendum Brief Verification & Attestation Participated in pt care: history, physical Personally performed: exam, history Care discussed with: Medical Student Procedures: n/a Verification and Attestation of Medical Student E/M Service A medical student performed and documented this service in my presence. I reviewed and verified all information documented by the medical student and made modifications to such information, when appropriate. I personally performed the physical exam and medical decision making. Romeo De La Cruz, Sep 16, 2021,17:27 BENNETT NELSON Sep 16, 2021 12:06 ROMEO DE LA CRUZ MD Sep 16, 2021 17:28
--- NOTE | 2021-09-16 12:18 | Tele-ICU Progress Note ---
Subjective Date Seen by a Provider: Sep 16, 2021 Time Seen by a Provider: 10:06 Sepsis Event Evaluation Height, Weight, BMI Height: '" Weight: lbs. oz. kg; 51.18 BMI Method: Focused Exam Lactate Level 09/15/21 17:45: Lactic Acid Level 1.42 09/15/21 22:00: Lactic Acid Level 1.02 Exam Exam Patient acknowledged, consented, and participated in this virtual visit which was conducted using real time audio/video Vital Signs Date Time Temp Pulse Resp B/P (MAP) Pulse Ox O2 Delivery O2 Flow Rate FiO2 09/16/21 11:28 95 Nasal Cannula 4.00 09/16/21 11:16 36.8 09/16/21 11:00 112 30 105/88 94 Nasal Cannula 4.00 09/16/21 10:29 Nasal Cannula 4.00 09/16/21 10:00 112 30 105/88 94 Nasal Cannula 3.00 09/16/21 09:00 116 21 98/60 99 Nasal Cannula 3.00 09/16/21 08:11 36.7 09/16/21 08:00 124 39 90/56 94 Nasal Cannula 3.00 09/16/21 08:00 Nasal Cannula 3.00 09/16/21 07:00 124 27 100/67 96 Nasal Cannula 3.00 09/16/21 07:00 122 09/16/21 06:39 Nasal Cannula 3.00 09/16/21 06:00 120 20 99/41 97 Nasal Cannula 4.50 09/16/21 05:00 128 29 103/60 95 Nasal Cannula 4.50 09/16/21 04:15 95 Nasal Cannula 4.50 09/16/21 04:00 128 23 155/90 96 Nasal Cannula 4.50 09/16/21 04:00 36.9 Nasal Cannula 4.50 09/16/21 03:00 130 25 116/49 96 Nasal Cannula 4.50 09/16/21 02:00 129 22 118/61 93 Nasal Cannula 4.50 09/16/21 01:00 131 09/16/21 01:00 131 28 112/63 97 Nasal Cannula 4.50 09/16/21 00:00 133 25 116/45 98 Nasal Cannula 4.50 09/15/21 23:46 97 Nasal Cannula 4.50 09/15/21 23:40 37.2 Nasal Cannula 4.50 09/15/21 23:00 131 28 116/67 97 Nasal Cannula 4.50 09/15/21 22:55 96 Nasal Cannula 5.00 09/15/21 22:30 129 13 120/65 95 Nasal Cannula 4.50 09/15/21 22:15 128 23 120/68 95 Nasal Cannula 4.50 09/15/21 22:04 36.7 130 09/15/21 22:00 122 33 129/73 94 Nasal Cannula 4.50 09/15/21 21:58 130 09/15/21 21:39 37.0 125 20 107/49 93 Nasal Cannula 4.50 09/15/21 21:36 95 Nasal Cannula 4.50 09/15/21 21:28 122 22 98/49 95 Nasal Cannula 4.00 09/15/21 17:29 36.7 134 24 102/86 (91) 98 Nasal Cannula 4.00 09/15/21 17:29 Nasal Cannula 4.00 I & O 09/16/21 07:00 Intake Total 5750 ml Output Total 445 ml Balance 5305 ml Height & Weight Height: '" Weight: lbs. oz. kg; 51.18 BMI Method: General Appearance: No Apparent Distress Capillary Refill: Less Than 3 Seconds Gastrointestinal: non tender, soft, other (Morbidly obese. Pannus reflections do have some erythema suggestive of yeast infection) Results Lab Laboratory Tests 09/15/21 17:45 09/16/21 03:49 Assessment/Plan Assessment/Plan (Tele-ICU Physician , Progress Note ) Available chart/ vitals / labs / Images reviewed Video assessment done using teleICU camera, rest of exam as per RN Discussed with RN , EXAM PER RN Events overnight : Afebrile FiO2 - 3l I/O = Drips: Pressors: , hemodynamically stable Consultants: cards Hospital course: (09/15) 61/M- From OSH rehab, bilateral bleeding lower ext. leg ulcers, skin breakdown starting/reddened buttcks A/P Sepsis - due to to LE weeping cellulitis chronic + Diarrhea -Hypotension responded to IVF.30 ml/kg IVF given - BUT NOW DROPPING BP AGAIN - ADDITIONAL FLUID ORDERED , PICC LINE ORDERED -IV abx started -Blood , stool and urine c/s sent Acute on Chronic hypercapnic resp failure , ( likely 2/2 underlying LORIN - refusing BiPAP, follow closely APRIL -continue IVF avoid nephrotoxins, dose meds renally Possible PNA , HAP Diarrhea + c diff -PO vanco 09/15 Anemia - delutional - follow Elev trop - mildly - ?demans , follow - ECHO pending - cards follow Morbid obesity / LORIN - REFUSING Bipap Lines : PICC LINE 09/16 ORDERED periph (Central Line Necessity Reviewed) Yepez: chronic , changes 09/15 OG: Nutrition: Analgesia: Anxiety/ delirium VTE Prophylaxis: jose de jesus 60 bid Stress Ulcer Prophylaxis: po Plans in collaboration with bedside consultants and IM MDs. Discussed with RN to reach out if any questions or concerns A total of 36 minutes of critical care time was devoted to this patient today, required to treat and/or prevent further deterioration of critical care condition ( as above) . NELIDA CUBA MD Sep 16, 2021 12:18
[2021-09-16 12:59] VITALS: BP 93/54
[2021-09-16 13:14] LABS: ABG BASE EXCESS -1.8 MMOL/L (-2.5-2.5); ABG OXYGEN SATURATION 96 % (94-100); ABG PO2 79 MMHG (79-93); ABG TCO2 27.9 MMOL/L (21.0-31.0)
[2021-09-16 13:16] LABS: ABG PCO2 73 MMHG (35-45); ABG PH 7.17 (7.37-7.43); ALLENS TEST POS
[2021-09-16 13:17] LABS: INSPIRED O2 35%; PATIENT TEMP 37; VENTILATOR NO
[2021-09-16 13:42] LABS: CALCIUM 7.9 MG/DL (8.5-10.1)
[2021-09-16 13:46] LABS: CREATININE SERUM 2.72 MG/DL (0.60-1.30)
[2021-09-16] MEDS ORDERED: OXYC-556 PO (13:56)
[2021-09-16] MEDS ORDERED: CEFD300C3 PO (13:56)
[2021-09-16] MEDS ORDERED: ACET325T38 PO (13:56)
--- NOTE | 2021-09-16 15:01 | Diagnostic Imaging Report ---
PROCEDURE: US Venous Lower Ext Jose. TECHNIQUE: Multiple Real-time grayscale images were obtained over the lower extremities in various projections bilaterally. Additional duplex Doppler and color Doppler images were also obtained. INDICATION: Severe sepsis. COMPARISON: None available. FINDINGS: Some portions of the examination are limited due to patient's body habitus and not cooperating with the exam. The left popliteal vein is noncompressible and does not augment. The bilateral common femoral, superficial femoral, and proximal greater saphenous veins are patent. The right popliteal vein is patent. These structures demonstrate good waveform, augmentation, and compressibility. IMPRESSION: A small amount of deep venous thrombosis is present in the left popliteal vein. Dictated by: Dictated on workstation # [id number]
--- NOTE | 2021-09-16 15:20 | Diagnostic Imaging Report ---
CHEST 1 VIEW, AP/PA ONLY INDICATION: PICC placement. COMPARISON: 09/15/2021. FINDINGS: Right PICC has tip terminating near the lower SVC. Low lung volumes. Central bibasilar pulmonary opacities have worsened. No pleural effusion or pneumothorax. Stable enlargement of the cardiac silhouette. IMPRESSION: 1. Well-positioned right PICC with tip near the superior cavoatrial junction. 2. Increased bibasilar opacities are likely on the basis of atelectasis. Multifocal infection could also give this appearance in the appropriate setting. Dictated by: Dictated on workstation # [id number]
[2021-09-16] MEDS ORDERED: FUROSEMIDE 40 MG/4 ML INJ (LASIX) IVP ONE (16:15)
[2021-09-16] MEDS ORDERED: FUROSEMIDE 40 MG/4 ML INJ (LASIX) ONE (16:16)
[2021-09-16 17:25] LABS: BASOPHILS # (AUTO) 0.1 10^3/uL (0.0-0.1); BASOPHILS % (AUTO) 1 % (0-10); EOSINOPHILS # (AUTO) 0.3 10^3/uL (0.0-0.3); EOSINOPHILS % (AUTO) 2 % (0-10); HEMATOCRIT 32 % (40-54); HEMOGLOBIN 9.4 g/dL (13.3-17.7); LYMPHOCYTES # (AUTO) 1.3 10^3/uL (1.0-4.0); LYMPHOCYTES % (AUTO) 6 % (12-44); MEAN CORPUSCULAR HEMOGLOBIN 27 pg (25-34); MEAN CORPUSCULAR HGB CONC 30 g/dL (32-36); MEAN CORPUSCULAR VOLUME 92 fL (80-99); MEAN PLATELET VOLUME 9.4 fL (9.0-12.2); MONOCYTES # (AUTO) 1.4 10^3/uL (0.0-1.0); MONOCYTES % (AUTO) 7 % (0-12); NEUTROPHILS # (AUTO) 16.6 10^3/uL (1.8-7.8); NEUTROPHILS % (AUTO) 83 % (42-75); PLATELET COUNT 553 10^3/uL (130-400); WHITE BLOOD COUNT 19.9 10^3/uL (4.3-11.0)
[2021-09-16 17:28] LABS: ABG BASE EXCESS -2.3 MMOL/L (-2.5-2.5); ABG OXYGEN SATURATION 98 % (94-100); ABG PCO2 68 MMHG (35-45); ABG PO2 98 MMHG (79-93); ABG TCO2 27.4 MMOL/L (21.0-31.0)
[2021-09-16 17:34] LABS: POTASSIUM 2.9 MMOL/L (3.6-5.0)
[2021-09-16 17:35] LABS: CALCIUM 7.9 MG/DL (8.5-10.1)
[2021-09-16 17:38] LABS: ABG PH 7.19 (7.37-7.43); ALLENS TEST POS; INSPIRED O2 35%; PATIENT TEMP 97.1; VENTILATOR NO
[2021-09-16 17:39] LABS: CREATININE SERUM 2.54 MG/DL (0.60-1.30)
[2021-09-16 23:01] VITALS: BP 142/77
[2021-09-17 03:54] LABS: BASOPHILS # (AUTO) 0.1 10^3/uL (0.0-0.1); BASOPHILS % (AUTO) 1 % (0-10); EOSINOPHILS # (AUTO) 0.5 10^3/uL (0.0-0.3); EOSINOPHILS % (AUTO) 4 % (0-10); HEMATOCRIT 26 % (40-54); HEMOGLOBIN 7.7 g/dL (13.3-17.7); LYMPHOCYTES # (AUTO) 1.1 10^3/uL (1.0-4.0); LYMPHOCYTES % (AUTO) 8 % (12-44); MEAN CORPUSCULAR HEMOGLOBIN 27 pg (25-34); MEAN CORPUSCULAR HGB CONC 29 g/dL (32-36); MEAN CORPUSCULAR VOLUME 92 fL (80-99); MEAN PLATELET VOLUME 9.8 fL (9.0-12.2); MONOCYTES % (AUTO) 8 % (0-12); NEUTROPHILS # (AUTO) 10.3 10^3/uL (1.8-7.8); NEUTROPHILS % (AUTO) 79 % (42-75); PLATELET COUNT 437 10^3/uL (130-400); WHITE BLOOD COUNT 13.1 10^3/uL (4.3-11.0)
[2021-09-17 04:12] LABS: ALBUMIN 1.9 GM/DL (3.2-4.5); POTASSIUM 2.8 MMOL/L (3.6-5.0)
[2021-09-17 04:13] LABS: CALCIUM 7.5 MG/DL (8.5-10.1)
[2021-09-17 04:14] LABS: TOTAL PROTEIN 4.5 GM/DL (6.4-8.2)
[2021-09-17 04:16] LABS: BILIRUBIN,TOTAL 0.3 MG/DL (0.1-1.0)
[2021-09-17 04:17] LABS: PHOSPHORUS 3.4 MG/DL (2.3-4.7)
[2021-09-17 04:18] LABS: CREATININE SERUM 1.62 MG/DL (0.60-1.30)
[2021-09-17 04:21] LABS: MAGNESIUM 1.7 MG/DL (1.6-2.4)
[2021-09-17] MEDS: NOREPINEPHRINE 8 MG/250 ML 250 ML IV SCH ×3 (05:05→21:20)
[2021-09-17] MEDS: PIPERACILLIN SODIUM/TAZOBACTAM 4.5 GM in NS (IVPB) 100 ML IV SCH ×3 (05:36→21:21)
[2021-09-17] MEDS: NS IV 1000 ML 1,000 ML IV SCH ×2 (05:37→17:35)
[2021-09-17] MEDS: VANCOMYCIN 125 MG CAPSULE PO SCH ×4 (05:37→23:54)
[2021-09-17] MEDS: RT-ALBUTEROL SULF 2.5 MG/3 ML PRE-MIX VIAL INH SCH ×2 (07:23→21:33)
[2021-09-17 07:24] VITALS: BP 139/73
[2021-09-17] MEDS: VASOPRESSIN INJECTION 20 UNIT in NS (IVPB) 100 ML IV SCH ×2 (07:34→20:11)
[2021-09-17] MEDS: LACTATED RINGERS 1,000 ML IV SCH ×2 (08:19→20:12)
--- NOTE | 2021-09-17 08:41 | Progress Note - Cardiology ---
Cardiology SOAP Progress Note Subjective: In bed on Bi-pap Lethargic this morning, opens eyes, but does not answer questions Objective: I&O/Vital Signs 09/17/21 09/17/21 09/17/21 09/17/21 05:00 06:00 07:00 07:00 Pulse 94 92 91 90 Resp 18 20 20 B/P (MAP) 133/83 132/81 139/73 Pulse Ox 98 98 97 O2 Delivery NIV Bilevel NIV Bilevel NIV Bilevel O2 Flow Rate 45.00 45.00 45.00 09/17/21 09/17/21 09/17/21 09/17/21 07:24 07:35 08:00 08:00 Temp 35.7 Pulse 92 92 Resp 25 19 B/P (MAP) 147/70 Pulse Ox 96 97 O2 Delivery NIV Bilevel NIV Bilevel O2 Flow Rate 45.00 45.00 FiO2 45 09/17/21 09/17/21 09/17/21 09/17/21 09:00 10:00 10:54 11:00 Pulse 92 92 89 90 Resp 20 18 26 14 B/P (MAP) 130/73 143/82 132/100 Pulse Ox 96 97 98 97 O2 Delivery NIV Bilevel NIV Bilevel NIV Bilevel O2 Flow Rate 45.00 45.00 45.00 45.00 09/17/21 09/17/21 09/17/21 09/17/21 11:23 12:00 12:00 12:28 Temp 36.1 Pulse 94 Resp 22 B/P (MAP) 141/90 Pulse Ox 96 O2 Delivery Nasal Cannula Nasal Cannula Nasal Cannula O2 Flow Rate 4.00 4.00 4.00 09/17/21 09/17/21 09/17/21 09/17/21 12:39 13:00 14:00 14:02 Pulse 93 96 93 Resp 28 27 B/P (MAP) 166/90 165/84 Pulse Ox 99 99 O2 Delivery Nasal Cannula Nasal Cannula NIV Bilevel O2 Flow Rate 4.00 4.00 45.00 09/17/21 09/17/21 09/17/21 14:19 15:56 16:17 Pulse 87 Resp 33 Pulse Ox 100 O2 Delivery NIV Bilevel NIV Bilevel O2 Flow Rate 45.00 35.00 FiO2 35 09/17/21 00:00 Intake Total 3100 ml Output Total 1175 ml Balance 1925 ml Constitutional: well-developed, well-nourished, other (obese; lethargic - opens eyes, but does answer questions) Respiratory: No accessory muscle use; other (fair air entry, diminished at the bases) Cardiovascular: regular rate-rhythm, S1 and S2, systolic murmur (soft OCTAVIO at card base) Gastrointestional: No tender; distended; No guarding, No rebound Extremities: other (both lower legs wrapped in bandages that were not removed); No clubbing, No cyanosis; significant edema Skin: other (dressings to bilat LE with large amounts of sero-sainguinous drainage) Results/Procedures: Labs Laboratory Tests 09/16/21 17:15: White Blood Count 19.9H, Red Blood Count 3.47L, Hemoglobin 9.4L, Hematocrit 32L, Mean Corpuscular Volume 92, Mean Corpuscular Hemoglobin 27, Mean Corpuscular Hemoglobin Concent 30L, Red Cell Distribution Width 16.5H, Platelet Count 553H, Mean Platelet Volume 9.4, Immature Granulocyte % (Auto) 1, Neutrophils (%) (Auto) 83H, Lymphocytes (%) (Auto) 6L, Monocytes (%) (Auto) 7, Eosinophils (%) (Auto) 2, Basophils (%) (Auto) 1, Neutrophils # (Auto) 16.6H, Lymphocytes # (Auto) 1.3, Monocytes # (Auto) 1.4H, Eosinophils # (Auto) 0.3, Basophils # (Auto) 0.1, Immature Granulocyte # (Auto) 0.2H, Blood Gas Puncture Site RT RAD, Blood Gas Patient Temperature 97.1, Arterial Blood pH 7.19*L, Arterial Blood Partial Pressure CO2 68H, Arterial Blood Partial Pressure O2 98H, Arterial Blood HCO3 25, Arterial Blood Total CO2 27.4, Arterial Blood Oxygen Saturation 98, Arterial Blood Base Excess -2.3, Kendall Test POS, Blood Gas Ventilator Setting NO, Blood Gas Inspired Oxygen 35%, Sodium Level 142, Potassium Level 2.9L, Chloride Level 106, Carbon Dioxide Level 23, Anion Gap 13, Blood Urea Nitrogen 3 4H, Creatinine 2.54H, Estimat Glomerular Filtration Rate 28, BUN/Creatinine Ratio 13, Glucose Level 163H, Calcium Level 7.9L 09/16/21 23:21: Glucometer 77 09/17/21 03:42: White Blood Count 13.1H, Red Blood Count 2.85L, Hemoglobin 7.7L, Hematocrit 26L, Mean Corpuscular Volume 92, Mean Corpuscular Hemoglobin 27, Mean Corpuscular Hemoglobin Concent 29L, Red Cell Distribution Width 16.3H, Platelet Count 437H, Mean Platelet Volume 9.8, Immature Granulocyte % (Auto) 1, Neutrophils (%) (Auto) 79H, Lymphocytes (%) (Auto) 8L, Monocytes (%) (Auto) 8, Eosinophils (%) (Auto) 4, Basophils (%) (Auto) 1, Neutrophils # (Auto) 10.3H, Lymphocytes # (Auto) 1.1, Monocytes # (Auto) 1.0, Eosinophils # (Auto) 0.5H, Basophils # (Auto) 0.1, Immature Granulocyte # (Auto) 0.1, Sodium Level 141, Potassium Level 2.8L, Chloride Level 107, Carbon Dioxide Level 20L, Anion Gap 14, Blood Urea Nitrogen 29H, Creatinine 1.62H, Estimat Glomerular Filtration Rate 48, BUN/Creatinine Ratio 18, Glucose Level 134H, Calcium Level 7.5L, Corrected Calcium 9.2, Phosphorus Level 3.4, Magnesium Level 1.7, Total Bilirubin 0.3, Aspartate Amino Transf (AST/SGOT) 11, Alanine Aminotransferase (ALT/SGPT) 11, Alkaline Phosphatase 58, Total Protein 4.5L, Albumin 1.9L 09/17/21 11:47: Glucometer 115H 09/17/21 14:00: White Blood Count 11.7H, Red Blood Count 3.05L, Hemoglobin 8.3L, Hematocrit 28L, Mean Corpuscular Volume 90, Mean Corpuscular Hemoglobin 27, Mean Corpuscular Hemoglobin Concent 30L, Red Cell Distribution Width 16.2H, Platelet Count 427H, Mean Platelet Volume 9.7, Sodium Level 143, Potassium Level 2.8L, Chloride Level 108H, Carbon Dioxide Level 26, Anion Gap 9, Blood Urea Nitrogen 32H, Creatinine 1.57H, Estimat Glomerular Filtration Rate 50, BUN/Creatinine Ratio 20, Glucose Level 142H, Lactic Acid Level 0.69, Calcium Level 8.1L Microbiology 09/15/21 MRSA Screen - Final, Complete MRSA not isolated 09/15/21 Blood Culture - Preliminary, Resulted No growth 09/15/21 Urine Culture - Final, Complete NO GROWTH 09/15/21 C. difficile GDH Antigen & Toxins - Final, Resulted 09/15/21 Stool Culture, Resulted Pending A/P: Assessment: Acute resp distress - requiring Bi-pap - refuses intubation C Diff enteritis and sepsis Hypotension: - low grade septic shock - required pressor support overnight DVT - A small amount of deep venous thrombosis is present in the left popliteal vein - management per medical services - Lovenox at this time APRIL - likely secondary to sepsis/hypotension - improving following fluids Morbid obesity Abnormal ECG, suggestive of old IMI Minimal troponin elevation, likely minimal type 2 [place] due to hypotension Bilat leg swelling, likely due to venous insuff Plan: * Management of C Diff, LE leg wounds and sepsis is with the attending svce * Echo * ASA * Replenish lytes * Monitor labs * Management of anemia per medical services * Management of popliteal DVT per medical services (Lovenox) KIRILL YAN Sep 17, 2021 08:41
[2021-09-17] MEDS: ENOXAPARIN 60 MG/0.6 ML (LOVENOX) SYR SC SCH (09:27)
[2021-09-17] MEDS ORDERED: hydrALAZINE (APESOLINE) 20 MG/ML VIAL IV PRN (09:30)
[2021-09-17] MEDS ORDERED: KCL 20 MEQ TAB (K-DUR) PO NR (09:30)
[2021-09-17] MEDS: MAGNESIUM 1 GM/100 ML IVPB 100 ML IV SCH ×2 (10:43→10:47)
[2021-09-17] MEDS: POTASSIUM CL 10MEQ/50ML IVPB 50 ML IV SCH ×9 (10:43→20:12)
[2021-09-17] MEDS: ENOXAPARIN 300 MG/3 ML (LOVENOX) MULTI-DOSE VIAL SQ SCH ×2 (10:51→21:21)
[2021-09-17 10:54] VITALS: BP 143/82
[2021-09-17] MEDS ORDERED: morphine INJ 4 MG/ML 1 ML (VIAL/SYRINGE) ONE (10:57)
[2021-09-17] MEDS ORDERED: morphine INJ 10 MG/ML 1ML (SYR OR VIAL) IVP STA (11:00)
--- NOTE | 2021-09-17 11:08 | Tele-ICU Progress Note ---
Subjective Date Seen by a Provider: Sep 17, 2021 Time Seen by a Provider: 11:08 Sepsis Event Evaluation Height, Weight, BMI Height: '" Weight: lbs. oz. kg; 51.18 BMI Method: Focused Exam Lactate Level 09/15/21 17:45: Lactic Acid Level 1.42 09/15/21 22:00: Lactic Acid Level 1.02 Exam Exam Patient acknowledged, consented, and participated in this virtual visit which was conducted using real time audio/video Vital Signs Date Time Temp Pulse Resp B/P (MAP) Pulse Ox O2 Delivery O2 Flow Rate FiO2 09/17/21 10:54 89 26 98 45.00 09/17/21 10:00 92 18 143/82 97 NIV Bilevel 45.00 09/17/21 09:00 92 20 222/134 96 NIV Bilevel 45.00 09/17/21 08:00 NIV Bilevel 45 09/17/21 08:00 92 19 147/70 97 NIV Bilevel 45.00 09/17/21 07:35 35.7 09/17/21 07:24 92 25 96 45.00 09/17/21 07:00 90 20 139/73 97 NIV Bilevel 45.00 09/17/21 07:00 91 09/17/21 06:00 92 20 132/81 98 NIV Bilevel 45.00 09/17/21 05:00 94 18 133/83 98 NIV Bilevel 45.00 09/17/21 04:00 95 NIV Bilevel 45 09/17/21 04:00 91 25 148/58 97 NIV Bilevel 45.00 09/17/21 03:51 36.2 NIV Bilevel 45.00 09/17/21 03:00 93 17 156/88 94 NIV Bilevel 45.00 09/17/21 02:00 90 17 125/96 98 NIV Bilevel 45.00 09/17/21 01:00 100 09/17/21 01:00 95 21 131/73 97 NIV Bilevel 45.00 09/17/21 00:00 94 15 119/63 98 NIV Bilevel 45.00 09/16/21 23:59 95 NIV Bilevel 45 09/16/21 23:28 36.4 NIV Bilevel 45.00 09/16/21 23:01 83 24 96 45.00 09/16/21 23:00 95 28 119/82 98 NIV Bilevel 45.00 09/16/21 22:14 95 114/75 09/16/21 22:00 92 21 114/75 97 NIV Bilevel 45.00 09/16/21 21:00 89 21 132/76 97 NIV Bilevel 45.00 09/16/21 20:00 95 NIV Bilevel 45 09/16/21 20:00 90 26 138/85 NIV Bilevel 45.00 09/16/21 19:35 35.6 09/16/21 19:00 96 26 133/83 NIV Bilevel 45.00 09/16/21 19:00 100 09/16/21 18:00 96 28 129/80 98 NIV Bilevel 45.00 09/16/21 17:00 98 24 145/71 92 NIV Bilevel 45.00 09/16/21 16:28 NIV Bilevel 45.00 09/16/21 16:25 94 NIV Bilevel 45 09/16/21 16:00 104 18 129/73 93 NIV Bilevel 35.00 09/16/21 15:25 36.2 09/16/21 15:00 101 112/68 98 NIV Bilevel 35.00 09/16/21 14:00 100 12 120/72 96 NIV Bilevel 35.00 09/16/21 13:43 NIV Bilevel 45.00 09/16/21 13:36 97 75/47 09/16/21 13:26 Nasal Cannula 4.00 09/16/21 13:00 97 27 88/50 95 NIV Bilevel 35.00 09/16/21 12:59 99 28 94 35.00 09/16/21 12:52 NIV Bilevel 35.00 09/16/21 12:31 107 09/16/21 12:00 107 22 60/38 97 Nasal Cannula 4.00 09/16/21 11:28 95 Nasal Cannula 4.00 09/16/21 11:16 36.8 I & O 09/17/21 07:00 Intake Total 3880 ml Output Total 1625 ml Balance 2255 ml Height & Weight Height: '" Weight: lbs. oz. kg; 51.18 BMI Method: General Appearance: Moderate Distress, Obese Neck: Full Range of Motion, Supple Respiratory: Normal Breath Sounds, Crackles; No Wheezing Cardiovascular: Regular Rate, Rhythm, Systolic Murmur, Tachycardia Capillary Refill: Less Than 3 Seconds Gastrointestinal: non tender, soft, other (Morbidly obese. Pannus reflections do have some erythema suggestive of yeast infection) Extremity: Inflammation (BLLE erythema and scaling with small amt serosangunous drainage on anterior tibias during dressing change), Pedal Edema (Trace), Swelling Neurologic/Psychiatric: Alert, Oriented x3, No Motor/Sensory Deficits Skin: Rash Lymphatic: No Adenopathy Results Lab Laboratory Tests 09/15/21 17:45 09/16/21 03:49 09/16/21 13:19 09/16/21 17:15 09/17/21 03:42 Assessment/Plan Assessment/Plan (Tele-ICU Physician , Progress Note ) Available chart/ vitals / labs / Images reviewed Video assessment done using teleICU camera, rest of exam as per RN Discussed with RN , EXAM PER RN Events overnight : Afebrile FiO2 - 3l I/O = Drips: Pressors: , hemodynamically stable Consultants: milena Hospital course: (09/15) 61/M- From OSH rehab, bilateral bleeding lower ext. leg ulcers, skin breakdown starting/reddened buttcks 09/16 - LEVO , ECHO ef 55% , tried BIPAP - refused , + DVT popliteal 09/17 -large volume diarrhea, added Flagyl, off levo , BIPAP tolerated A/P Sepsis - due to to LE weeping cellulitis chronic + Diarrhea with c diff -Hypotension responded to IVF.30 ml/kg IVF given - BUT NOW DROPPING BP AGAIN - ADDITIONAL FLUID ORDERED , PICC LINE ORDERED -IV abx started -Blood , stool and urine c/s sent Acute on Chronic hypercapnic resp failure , ( likely 2/2 underlying LORIN - agreed to bipap todday - follow APRIL -continue IVF avoid nephrotoxins, dose meds renally Possible PNA , HAP 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 - with large volume diarrhea - flagyl IV added 09/17 - increased abd distention - will place fecal tube , check lactate and KUB ( can not do CT due to weight limitations ) Anemia - follow closely , check iron , Elev trop - mildly - ?demans , follow - ECHO 09/16 - EF 55 % - cards follow DVT left - small amount of deep venous thrombosis popliteal vein 09/16 - on lovenox full dose - monitor Hb Morbid obesity / LORIN - REFUSING Bipap Lines : PICC LINE 09/16 ORDERED periph (Central Line Necessity Reviewed) Yepez: chronic , changes 09/15 OG: Nutrition: Analgesia: Anxiety/ delirium VTE Prophylaxis: jose de jesus 60 bid Stress Ulcer Prophylaxis: po Plans in collaboration with bedside consultants and IM MDs. Discussed with RN to reach out if any questions or concerns A total of 40 minutes of critical care time was devoted to this patient today, required to treat and/or prevent further deterioration of critical care condition ( as NELIDA CUBA MD Sep 17, 2021 11:08
--- NOTE | 2021-09-17 12:37 | Progress Note ---
BENNETT NELSON 09/17/21 1237: Progress Note Progress Notes/Assess & Plan Date Seen 09/17/21 Assessment & Plan S: Found to have DVT yesterday on u/s. Denies CP, SOB. No longer tachy. Believes the size of his abdomen has increased with fluids and now has mild abdominal pain. Did not have a bm overnight. Hypertensive this AM. Denies headaches. Pt has been wearing BiPAP consistently. Physical exam: Gen'l: patient A&Ox3, ill appearing Cardio: RRR, systolic ejection murmur Pulm: scattered expiratory crackles, on BiPAP Abdomen: anasarca, TTP in all quadrands, positive bowel sounds Extremities: 4+ pitting edema up to superior tibia Skin: Dressings over BLLE soaked with serous fluid ASSESSMENT Patient in severe sepsis likely secondary to C diff. Pneumonia less likely given repeat CXR. Intermittent BLLE edema and RBBB on EKG suggestive of underlying cardiac disease contributing to chronic lower extremity wounds. PLAN Severe sepsis -Required LR fluid bolus on admission and required PICC line with pressors 09/16 -Wound care to perform dressing changes -Leukocytosis -Lasix yesterday for anasarca >Zosyn pending wound culture sensitivities, add Flagyl 09/17 >Stop levophed drip and hold fluids as patient now hypertensive DVT -R popliteal DVT on u/s 09/17 >on Lovenox 60 mg BID since admission NSTEMI -Elevated troponins -ASA on admission -Cards consulted, echo anticipated Diarrhea -On oral antibiotics before admission, C diff positive -PO vancomycin Atelectasis -Min O2 o/n 94% Cellulitis >Zosyn APRIL -renally adjust meds -replace electrolytes with checks Q4 -K 09/15, 09/16, 09/17 LORIN -ABG suggestive of LORIN or obesity hypoventilation syndrome Focused Exam Lactate Level 09/15/21 17:45: Lactic Acid Level 1.42 09/15/21 22:00: Lactic Acid Level 1.02 Respiratory: Crackles Cardiovascular: Regular Rate, Rhythm Skin: cool ROMEO VAZQUEZ MD 09/17/21 3785: Progress Note Progress Notes/Assess & Plan Time Seen by Provider: 09:45 Supervisory-Addendum Brief Verification & Attestation Participated in pt care: history, physical Personally performed: exam, history Care discussed with: Medical Student Procedures: n/a Verification and Attestation of Medical Student E/M Service A medical student performed and documented this service in my presence. I reviewed and verified all information documented by the medical student and made modifications to such information, when appropriate. I personally performed the physical exam and medical decision making. Romeo Vazquez, Sep 17, 2021,22:34 BENNETT NELSON Sep 17, 2021 12:37 ROMEO VAZQUEZ MD Sep 17, 2021 22:35
[2021-09-17] MEDS: metroNIDAZOLE 500MG/100ML IVPB 100 ML IV SCH ×2 (13:05→21:21)
[2021-09-17] MEDS: oxyCODONE/APAP 10/325MG (PERCOCET 10) TABLET PO PRN ×2 (13:55→20:15)
--- NOTE | 2021-09-17 14:08 | Progress Note - Cardiology ---
Cardiology SOAP Progress Note Subjective: Gen weakness and malaise, marked No cp or palp or syncope or shortness of breath at rest No n/v/d Objective: I&O/Vital Signs 09/17/21 09/17/21 09/17/21 09/17/21 03:00 03:51 04:00 04:00 Temp 36.2 Pulse 93 91 Resp 17 25 B/P (MAP) 156/88 148/58 Pulse Ox 94 97 95 O2 Delivery NIV Bilevel NIV Bilevel NIV Bilevel NIV Bilevel O2 Flow Rate 45.00 45.00 45.00 FiO2 45 09/17/21 09/17/21 09/17/21 09/17/21 05:00 06:00 07:00 07:00 Pulse 94 92 91 90 Resp 18 20 20 B/P (MAP) 133/83 132/81 139/73 Pulse Ox 98 98 97 O2 Delivery NIV Bilevel NIV Bilevel NIV Bilevel O2 Flow Rate 45.00 45.00 45.00 09/17/21 09/17/21 09/17/21 09/17/21 07:24 07:35 08:00 08:00 Temp 35.7 Pulse 92 92 Resp 25 19 B/P (MAP) 147/70 Pulse Ox 96 97 O2 Delivery NIV Bilevel NIV Bilevel O2 Flow Rate 45.00 45.00 FiO2 45 09/17/21 09/17/21 09/17/21 09/17/21 09:00 10:00 10:54 11:00 Pulse 92 92 89 90 Resp 20 18 26 14 B/P (MAP) 130/73 143/82 132/100 Pulse Ox 96 97 98 97 O2 Delivery NIV Bilevel NIV Bilevel NIV Bilevel O2 Flow Rate 45.00 45.00 45.00 45.00 09/17/21 09/17/21 09/17/21 09/17/21 11:23 12:00 12:00 12:28 Temp 36.1 Pulse 94 Resp 22 B/P (MAP) 141/90 Pulse Ox 96 O2 Delivery Nasal Cannula Nasal Cannula Nasal Cannula O2 Flow Rate 4.00 4.00 4.00 09/17/21 09/17/21 09/17/21 12:39 13:00 14:02 Pulse 93 96 Resp 28 B/P (MAP) 166/90 Pulse Ox 99 O2 Delivery Nasal Cannula NIV Bilevel O2 Flow Rate 4.00 45.00 09/17/21 00:00 Intake Total 3100 ml Output Total 1175 ml Balance 1925 ml Constitutional: well-developed, well-nourished, other (obese; lethargic - opens eyes, but does answer questions) Respiratory: No accessory muscle use; other (fair air entry, diminished at the bases) Cardiovascular: regular rate-rhythm, S1 and S2, systolic murmur (soft OCTAVIO at card base) Gastrointestional: No tender; distended; No guarding, No rebound Extremities: other (both lower legs wrapped in bandages that were not removed); No clubbing, No cyanosis; significant edema Skin: cool Results/Procedures: Labs Laboratory Tests 09/16/21 17:15: White Blood Count 19.9H, Red Blood Count 3.47L, Hemoglobin 9.4L, Hematocrit 32L, Mean Corpuscular Volume 92, Mean Corpuscular Hemoglobin 27, Mean Corpuscular Hemoglobin Concent 30L, Red Cell Distribution Width 16.5H, Platelet Count 553H, Mean Platelet Volume 9.4, Immature Granulocyte % (Auto) 1, Neutrophils (%) (Auto) 83H, Lymphocytes (%) (Auto) 6L, Monocytes (%) (Auto) 7, Eosinophils (%) (Auto) 2, Basophils (%) (Auto) 1, Neutrophils # (Auto) 16.6H, Lymphocytes # (Auto) 1.3, Monocytes # (Auto) 1.4H, Eosinophils # (Auto) 0.3, Basophils # (Auto) 0.1, Immature Granulocyte # (Auto) 0.2H, Blood Gas Puncture Site RT RAD, Blood Gas Patient Temperature 97.1, Arterial Blood pH 7.19*L, Arterial Blood Partial Pressure CO2 68H, Arterial Blood Partial Pressure O2 98H, Arterial Blood HCO3 25, Arterial Blood Total CO2 27.4, Arterial Blood Oxygen Saturation 98, Arterial Blood Base Excess -2.3, Kendall Test POS, Blood Gas Ventilator Setting NO, Blood Gas Inspired Oxygen 35%, Sodium Level 142, Potassium Level 2.9L, Chloride Level 106, Carbon Dioxide Level 23, Anion Gap 13, Blood Urea Nitrogen 34H, Creatinine 2.54H, Estimat Glomerular Filtration Rate 28, BUN/Creatinine Ratio 13, Glucose Level 163H, Calcium Level 7.9L 09/16/21 23:21: Glucometer 77 09/17/21 03:42: White Blood Count 13.1H, Red Blood Count 2.85L, Hemoglobin 7.7L, Hematocrit 26L, Mean Corpuscular Volume 92, Mean Corpuscular Hemoglobin 27, Mean Corpuscular Hemoglobin Concent 29L, Red Cell Distribution Width 16.3H, Platelet Count 437H, Mean Platelet Volume 9.8, Immature Granulocyte % (Auto) 1, Neutrophils (%) (Auto) 79H, Lymphocytes (%) (Auto) 8L, Monocytes (%) (Auto) 8, Eosinophils (%) (Auto) 4, Basophils (%) (Auto) 1, Neutrophils # (Auto) 10.3H, Lymphocytes # (Auto) 1.1, Monocytes # (Auto) 1.0, Eosinophils # (Auto) 0.5H, Basophils # (Auto) 0.1, Immature Granulocyte # (Auto) 0.1, Sodium Level 141, Potassium Level 2.8L, Chloride Level 107, Carbon Dioxide Level 20L, Anion Gap 14, Blood Urea Nitrogen 29H, Creatinine 1.62H, Estimat Glomerular Filtration Rate 48, BUN/Creatinine Ratio 18, Glucose Level 134H, Calcium Level 7.5L, Corrected Calcium 9.2, Phosphorus Level 3.4, Magnesium Level 1.7, Total Bilirubin 0.3, Aspartate Amino Transf (AST/SGOT) 11, Alanine Aminotransferase (ALT/SGPT) 11, Alkaline Phosphatase 58, Total Protein 4.5L, Albumin 1.9L 09/17/21 11:47: Glucometer 115H Microbiology 09/15/21 MRSA Screen - Final, Complete MRSA not isolated 09/15/21 Blood Culture - Preliminary, Resulted No growth 09/15/21 Urine Culture - Final, Complete NO GROWTH 09/15/21 C. difficile GDH Antigen & Toxins - Final, Resulted 09/15/21 Stool Culture, Resulted Pending A/P: Assessment: Acute resp distress - requiring Bi-pap - refuses intubation - echo 09/16/21: difficult study, LVEF 55-60%, mild biatrial enlargement, PASP 30- 35 mmHg C Diff enteritis and and leg cellulitis and sepsis Hypotension: - low grade septic shock - required pressor support overnight DVT - A small amount of deep venous thrombosis is present in the left popliteal vein - management per medical services - Lovenox at this time APRIL - likely secondary to sepsis/hypotension - improving following fluids Morbid obesity Abnormal ECG, suggestive of old IMI Minimal troponin elevation, likely minimal type 2 [place] due to hypotension Bilat leg swelling, likely due to venous insuff Plan: * Management of C Diff, LE leg wounds and sepsis is with the attending svce * Monitor labs * Management of anemia per medical services * Management of popliteal DVT per medical services (Lovenox) MARIA D LUO MD FACP FAC CCDS Sep 17, 2021 14:08
[2021-09-17 14:19] VITALS: BP 165/84
[2021-09-17 14:30] LABS: HEMATOCRIT 28 % (40-54); HEMOGLOBIN 8.3 g/dL (13.3-17.7); MEAN CORPUSCULAR HEMOGLOBIN 27 pg (25-34); MEAN CORPUSCULAR HGB CONC 30 g/dL (32-36); MEAN CORPUSCULAR VOLUME 90 fL (80-99); MEAN PLATELET VOLUME 9.7 fL (9.0-12.2); PLATELET COUNT 427 10^3/uL (130-400); WHITE BLOOD COUNT 11.7 10^3/uL (4.3-11.0)
[2021-09-17 14:44] LABS: CALCIUM 8.1 MG/DL (8.5-10.1); CREATININE SERUM 1.57 MG/DL (0.60-1.30); POTASSIUM 2.8 MMOL/L (3.6-5.0)
--- NOTE | 2021-09-17 17:02 | Wound Care Assessment ---
Wound Care Assessment Date Seen by Provider: Sep 17, 2021 Time Seen by Provider: 16:57 Chief Complaint Full thickness ulcer bilateral calves (likely venous leg ulcers) HPI This 61 year old gentleman was admitted to the hospital with respiratory failure, sepsis, and C. Diff infection. He is improved medically today from admission. [place]. He has been using a barrier ointment on his legs prior to admission. He admits to noncompliance with elevation of legs in the home. However, he has had great improvements in his edema in just the last 24 hours. His wounds are draining copious amounts of purulent fluid with foul smell. This has been cultured and results are pending. He is currently on IV Zosyn and PO vancomycin. There is maceration in the periwound and we discussed the importance of elevation when he leaves the hospital. It will be important for him to continue with outpatient wound care upon discharge. I suspect he would benefit from outpatient arterial evalution in order to using some compression both to assist in healing current wounds and prevention of further wounds in the future. Peripheral vascular disease, obesity Smoking Status: Former Smoker Review of Systems General: Other (Obesity) Cardiovascular: Orthopnea, Paroxysmal Noc. Dyspnea, Edema Exam Vital Signs Date Time Temp Pulse Resp B/P (MAP) Pulse Ox O2 Delivery O2 Flow Rate FiO2 09/17/21 16:17 NIV Bilevel 35 09/17/21 16:00 87 22 151/82 98 35.00 09/17/21 12:28 36.1 Capillary Refill : Less Than 3 Seconds General Appearance: no apparent distress, obese Cardiovascular: other (2+ edema) Respiratory: no respiratory distress Skin: other (hyperpigmentation of b/l LE with flaking and hemosiderinosis) Skin Problem Location: lower extremities Skin Character: drainage, scales, swelling Wound assessment: The epithelialization is none, there is no tunneling or undermining, drainage is large and purulent with foul odor, granulation is none, necrotic is large and slough/biofilm, wound margins are flat. The periwound shows evidence of maceration L. calf: [id number] cm R. calf: 74j24i5.1 cm Results Laboratory Tests 09/16/21 17:15: White Blood Count 19.9H, Red Blood Count 3.47L, Hemoglobin 9.4L, Hematocrit 32L, Mean Corpuscular Volume 92, Mean Corpuscular Hemoglobin 27, Mean Corpuscular Hemoglobin Concent 30L, Red Cell Distribution Width 16.5H, Platelet Count 553H, Mean Platelet Volume 9.4, Immature Granulocyte % (Auto) 1, Neutrophils (%) (Auto) 83H, Lymphocytes (%) (Auto) 6L, Monocytes (%) (Auto) 7, Eosinophils (%) (Auto) 2, Basophils (%) (Auto) 1, Neutrophils # (Auto) 16.6H, Lymphocytes # (Auto) 1.3, Monocytes # (Auto) 1.4H, Eosinophils # (Auto) 0.3, Basophils # (Auto) 0.1, Immature Granulocyte # (Auto) 0.2H, Blood Gas Puncture Site RT RAD, Blood Gas Patient Temperature 97.1, Arterial Blood pH 7.19*L, Arterial Blood Partial Pressure CO2 68H, Arterial Blood Partial Pressure O2 98H, Arterial Blood HCO3 25, Arterial Blood Total CO2 27.4, Arterial Blood Oxygen Saturation 98, Arterial Blood Base Excess -2.3, Kendall Test POS, Blood Gas Ventilator Setting NO, Blood Gas Inspired Oxygen 35%, Sodium Level 142, Potassium Level 2.9L, Chloride Level 106, Carbon Dioxide Level 23, Anion Gap 13, Blood Urea Nitrogen 3 4H, Creatinine 2.54H, Estimat Glomerular Filtration Rate 28, BUN/Creatinine Ratio 13, Glucose Level 163H, Calcium Level 7.9L 09/16/21 23:21: Glucometer 77 09/17/21 03:42: White Blood Count 13.1H, Red Blood Count 2.85L, Hemoglobin 7.7L, Hematocrit 26L, Mean Corpuscular Volume 92, Mean Corpuscular Hemoglobin 27, Mean Corpuscular Hemoglobin Concent 29L, Red Cell Distribution Width 16.3H, Platelet Count 437H, Mean Platelet Volume 9.8, Immature Granulocyte % (Auto) 1, Neutrophils (%) (Auto) 79H, Lymphocytes (%) (Auto) 8L, Monocytes (%) (Auto) 8, Eosinophils (%) (Auto) 4, Basophils (%) (Auto) 1, Neutrophils # (Auto) 10.3H, Lymphocytes # (Auto) 1.1, Monocytes # (Auto) 1.0, Eosinophils # (Auto) 0.5H, Basophils # (Auto) 0.1, Immature Granulocyte # (Auto) 0.1, Sodium Level 141, Potassium Level 2.8L, Chloride Level 107, Carbon Dioxide Level 20L, Anion Gap 14, Blood Urea Nitrogen 29H, Creatinine 1.62H, Estimat Glomerular Filtration Rate 48, BUN/Creatinine Ratio 18, Glucose Level 134H, Calcium Level 7.5L, Corrected Calcium 9.2, Phosphorus Level 3.4, Magnesium Level 1.7, Total Bilirubin 0.3, Aspartate Amino Transf (AST/SGOT) 11, Alanine Aminotransferase (ALT/SGPT) 11, Alkaline Phosphatase 58, Total Protein 4.5L, Albumin 1.9L 09/17/21 11:47: Glucometer 115H 09/17/21 14:00: White Blood Count 11.7H, Red Blood Count 3.05L, Hemoglobin 8.3L, Hematocrit 28L, Mean Corpuscular Volume 90, Mean Corpuscular Hemoglobin 27, Mean Corpuscular Hemoglobin Concent 30L, Red Cell Distribution Width 16.2H, Platelet Count 427H, Mean Platelet Volume 9.7, Sodium Level 143, Potassium Level 2.8L, Chloride Level 108H, Carbon Dioxide Level 26, Anion Gap 9, Blood Urea Nitrogen 32H, Creatinine 1.57H, Estimat Glomerular Filtration Rate 50, BUN/Creatinine Ratio 20, Glucose Level 142H, Lactic Acid Level 0.69, Calcium Level 8.1L Microbiology 09/15/21 MRSA Screen - Final, Complete MRSA not isolated 09/15/21 Blood Culture - Preliminary, Resulted No growth 09/15/21 Urine Culture - Final, Complete NO GROWTH 09/15/21 C. difficile GDH Antigen & Toxins - Final, Resulted 09/15/21 Stool Culture, Resulted Pending Microbiology 09/15/21 MRSA Screen - Final, Complete MRSA not isolated 09/15/21 Blood Culture - Preliminary, Resulted No growth 09/15/21 Urine Culture - Final, Complete NO GROWTH 09/15/21 C. difficile GDH Antigen & Toxins - Final, Resulted 09/15/21 Stool Culture, Resulted Pending 09/15/21 Blood Culture - Preliminary, Resulted No growth Assessment/Plan/Dx Assessment: 1. Full thicknes VLU bilateral calves with infection 2. Morbid obesity 3. Protein energy malnutrition 4. B/L LE edema Plan: 1. Cleanse wounds with Vashe. Thick layer of barrier ointment to periwound for protection, Aquacel Ag to wound bed. Cover with ABD, kerlix and YESENIA wrap. Change tid and prn if soaked. 2. Elevate legs as much as tolerated with current cardiac/respiratory status 3. Agree with Zosyn and wound culture 4. Maximize protein in diet 5. Outpatient follow up in wound care center once discharged recommended. CHRISS PIZANO MD Sep 17, 2021 17:02
[2021-09-17 21:33] VITALS: BP 146/80
[2021-09-18 03:21] LABS: BASOPHILS # (AUTO) 0.1 10^3/uL (0.0-0.1); BASOPHILS % (AUTO) 1 % (0-10); EOSINOPHILS # (AUTO) 0.6 10^3/uL (0.0-0.3); EOSINOPHILS % (AUTO) 5 % (0-10); HEMATOCRIT 28 % (40-54); HEMOGLOBIN 8.2 g/dL (13.3-17.7); LYMPHOCYTES # (AUTO) 1.5 10^3/uL (1.0-4.0); LYMPHOCYTES % (AUTO) 14 % (12-44); MEAN CORPUSCULAR HEMOGLOBIN 26 pg (25-34); MEAN CORPUSCULAR HGB CONC 29 g/dL (32-36); MEAN CORPUSCULAR VOLUME 90 fL (80-99); MEAN PLATELET VOLUME 9.6 fL (9.0-12.2); MONOCYTES # (AUTO) 0.8 10^3/uL (0.0-1.0); MONOCYTES % (AUTO) 8 % (0-12); NEUTROPHILS # (AUTO) 7.6 10^3/uL (1.8-7.8); NEUTROPHILS % (AUTO) 71 % (42-75); PLATELET COUNT 468 10^3/uL (130-400); WHITE BLOOD COUNT 10.7 10^3/uL (4.3-11.0)
[2021-09-18 03:28] LABS: ALBUMIN 2.3 GM/DL (3.2-4.5); POTASSIUM 3.3 MMOL/L (3.6-5.0)
[2021-09-18 03:29] LABS: CALCIUM 8.1 MG/DL (8.5-10.1)
[2021-09-18 03:30] LABS: TOTAL PROTEIN 5.3 GM/DL (6.4-8.2)
[2021-09-18 03:32] LABS: BILIRUBIN,TOTAL 0.2 MG/DL (0.1-1.0)
[2021-09-18 03:34] LABS: CREATININE SERUM 1.25 MG/DL (0.60-1.30); PHOSPHORUS 1.3 MG/DL (2.3-4.7)
[2021-09-18 03:37] LABS: MAGNESIUM 2.4 MG/DL (1.6-2.4)
[2021-09-18] MEDS: POTASSIUM CL 10MEQ/50ML IVPB 50 ML IV SCH ×4 (04:30→06:37)
[2021-09-18] MEDS: NOREPINEPHRINE 8 MG/250 ML 250 ML IV SCH ×3 (04:44→19:00)
[2021-09-18] MEDS: NS IV 1000 ML 1,000 ML IV SCH ×3 (05:03→21:33)
[2021-09-18] MEDS: PIPERACILLIN SODIUM/TAZOBACTAM 4.5 GM in NS (IVPB) 100 ML IV SCH ×3 (05:56→21:32)
[2021-09-18] MEDS: VASOPRESSIN INJECTION 20 UNIT in NS (IVPB) 100 ML IV SCH ×2 (05:56→14:17)
[2021-09-18] MEDS: VANCOMYCIN 125 MG CAPSULE PO SCH ×3 (05:56→18:29)
[2021-09-18] MEDS: metroNIDAZOLE 500MG/100ML IVPB 100 ML IV SCH ×3 (05:56→21:26)
[2021-09-18] MEDS: RT-ALBUTEROL SULF 2.5 MG/3 ML PRE-MIX VIAL INH SCH ×2 (06:41→21:56)
[2021-09-18 06:42] VITALS: BP 129/73
[2021-09-18] MEDS: ENOXAPARIN 300 MG/3 ML (LOVENOX) MULTI-DOSE VIAL SQ SCH ×2 (08:35→21:32)
--- NOTE | 2021-09-18 08:38 | Tele-ICU Progress Note ---
Subjective Date Seen by a Provider: Sep 18, 2021 Time Seen by a Provider: 08:38 Subjective/Events-last exam This gentleman admitted with diarrhea and lower extremity wounds which are weeping associated with hypotension and he had a increase in the troponin on admission. Chest x-ray showed slight atelectasis no definite infiltrate present. Patient probably has obstructive sleep apnea. He is found to have a C. difficile colitis as well. Currently his blood pressure improved on no Levophed. He is receiving BiPAP at night and 4 L of oxygen during daytime. I have made a video visit and discussed with the ACCOUNTS ADJUSTABLE CLERK. Sepsis Event Evaluation Height, Weight, BMI Height: '" Weight: lbs. oz. kg; 51.18 BMI Method: Focused Exam Lactate Level 09/15/21 17:45: Lactic Acid Level 1.42 09/15/21 22:00: Lactic Acid Level 1.02 09/17/21 14:00: Lactic Acid Level 0.69 Exam Exam Patient acknowledged, consented, and participated in this virtual visit which was conducted using real time audio/video Vital Signs Date Time Temp Pulse Resp B/P (MAP) Pulse Ox O2 Delivery O2 Flow Rate FiO2 09/18/21 08: 35.8 09/18/21 08:00 95 18 117/56 98 Nasal Cannula 4.00 09/18/21 07:00 90 12 112/62 99 Nasal Cannula 4.00 09/18/21 07:00 Nasal Cannula 4.00 09/18/21 07:00 86 09/18/21 06:42 87 26 96 35.00 09/18/21 06:00 88 28 129/73 95 NIV Bilevel 35.00 09/18/21 05:00 87 16 115/61 96 NIV Bilevel 35.00 09/18/21 04:00 89 21 152/56 96 NIV Bilevel 35.00 09/18/21 04:00 36.2 09/18/21 04:00 97 Nasal Cannula 4.00 09/18/21 03:00 59 12 150/77 95 NIV Bilevel 35.00 09/18/21 02:00 89 18 134/49 97 NIV Bilevel 35.00 09/18/21 01:00 94 27 101/57 99 NIV Bilevel 35.00 09/18/21 01:00 100 09/18/21 00:00 36.4 09/18/21 00:00 96 27 146/80 97 NIV Bilevel 35.00 09/17/21 23:59 97 Nasal Cannula 4.00 09/17/21 23:00 94 27 142/90 99 NIV Bilevel 35.00 09/17/21 22:00 94 21 137/85 97 NIV Bilevel 35.00 09/17/21 21:33 96 24 97 35.00 09/17/21 21:00 97 20 146/80 99 NIV Bilevel 35.00 09/17/21 20:00 98 16 132/70 99 NIV Bilevel 35.00 09/17/21 20:00 97 Nasal Cannula 4.00 09/17/21 20:00 36.2 09/17/21 19:10 100 Nasal Cannula 4.00 09/17/21 19:00 100 09/17/21 19:00 95 21 151/90 100 NIV Bilevel 35.00 09/17/21 18:00 93 25 169/115 100 NIV Bilevel 35.00 09/17/21 17:00 88 20 151/90 98 NIV Bilevel 35.00 09/17/21 16:17 NIV Bilevel 35 09/17/21 16:00 87 22 151/82 98 NIV Bilevel 35.00 09/17/21 16:00 35.6 09/17/21 15:56 NIV Bilevel 35.00 09/17/21 15:00 85 27 155/81 99 NIV Bilevel 45.00 09/17/21 14:19 87 33 100 45.00 09/17/21 14:02 NIV Bilevel 45.00 09/17/21 14:00 93 27 165/84 99 Nasal Cannula 4.00 09/17/21 13:00 96 28 166/90 99 Nasal Cannula 4.00 09/17/21 12:39 93 09/17/21 12:28 36.1 09/17/21 12:00 94 22 141/90 96 Nasal Cannula 4.00 09/17/21 12:00 Nasal Cannula 4.00 09/17/21 11:23 Nasal Cannula 4.00 09/17/21 11:00 90 14 132/100 97 NIV Bilevel 45.00 09/17/21 10:54 89 26 98 45.00 09/17/21 10:00 92 18 143/82 97 NIV Bilevel 45.00 09/17/21 09:00 92 20 130/73 96 NIV Bilevel 45.00 I & O 09/18/21 06:59 Intake Total 2910 ml Output Total 2350 ml Balance 560 ml Height & Weight Height: '" Weight: lbs. oz. kg; 51.18 BMI Method: General Appearance: Moderate Distress, Obese Neck: Full Range of Motion, Supple Respiratory: Crackles Cardiovascular: Regular Rate, Rhythm Capillary Refill: Less Than 3 Seconds Gastrointestinal: non tender, soft, other (Morbidly obese. Pannus reflections do have some erythema suggestive of yeast infection) Extremity: Inflammation (BLLE erythema and scaling with small amt serosangunous drainage on anterior tibias during dressing change), Pedal Edema (Trace), Swelling Neurologic/Psychiatric: Alert, Oriented x3, No Motor/Sensory Deficits Skin: Rash Lymphatic: No Adenopathy Other comments PE PER RN Results Lab Laboratory Tests 09/16/21 13:19 09/16/21 17:15 09/17/21 03:42 09/17/21 14:00 09/18/21 03:09 Assessment/Plan Assessment/Plan 1. Severe sepsis probably secondary to cellulitis associated with the leg wounds. 2. Diarrhea due to C. difficile colitis 3. Dehydration with acute kidney injury 4. Elevated troponin secondary to possible type II myocardial infarction 5. Anemia of chronic disease 6. Possible obstructive sleep apnea. Recommendations continue hydrate patient 2. IV antibiotics per primary team 3. Cardiology consultation requested for addressing the elevated troponin. 4. Continue BiPAP at nighttime and oxygenation with nasal cannula during daytime 5. Continue monitor BUN/creatinine and electrolytes as well as hemoglobin. 6. DVT prophylaxis and ulcer prophylaxis Critical Care: Critically Ill Patient Time spent with patient (mins): 25 SAEID DOSHI MD Sep 18, 2021 08:38
[2021-09-18] MEDS: oxyCODONE/APAP 10/325MG (PERCOCET 10) TABLET PO PRN ×2 (10:08→16:20)
--- NOTE | 2021-09-18 11:58 | Progress Note - Cardiology ---
Cardiology SOAP Progress Note Subjective: Gen malaise present No cp or palp or syncope or shortness of breath No n/v/d Objective: I&O/Vital Signs 09/17/21 09/18/21 09/18/21 09/18/21 23:59 00:00 00:00 01:00 Temp 36.4 Pulse 96 100 Resp 27 B/P (MAP) 146/80 Pulse Ox 97 97 O2 Delivery Nasal Cannula NIV Bilevel O2 Flow Rate 4.00 35.00 09/18/21 09/18/21 09/18/21 09/18/21 01:00 02:00 03:00 04:00 Pulse 94 89 59 Resp 27 18 12 B/P (MAP) 101/57 134/49 150/77 Pulse Ox 99 97 95 97 O2 Delivery NIV Bilevel NIV Bilevel NIV Bilevel Nasal Cannula O2 Flow Rate 35.00 35.00 35.00 4.00 09/18/21 09/18/21 09/18/21 09/18/21 04:00 04:00 05:00 06:00 Temp 36.2 Pulse 89 87 88 Resp 21 16 28 B/P (MAP) 152/56 115/61 129/73 Pulse Ox 96 96 95 O2 Delivery NIV Bilevel NIV Bilevel NIV Bilevel O2 Flow Rate 35.00 35.00 35.00 09/18/21 09/18/21 09/18/21 09/18/21 06:42 07:00 07:00 07:00 Pulse 87 86 90 Resp 26 12 B/P (MAP) 112/62 Pulse Ox 96 99 O2 Delivery Nasal Cannula Nasal Cannula O2 Flow Rate 35.00 4.00 4.00 09/18/21 09/18/21 09/18/21 09/18/21 08:00 08:22 08:28 09:00 Temp 35.8 Pulse 95 95 Resp 18 20 B/P (MAP) 117/56 105/57 Pulse Ox 98 96 95 O2 Delivery Nasal Cannula Nasal Cannula Nasal Cannula O2 Flow Rate 4.00 4.00 4.00 09/18/21 09/18/21 09/18/21 10:00 11:00 11:23 Pulse 97 98 Resp 21 18 B/P (MAP) 100/54 123/67 Pulse Ox 96 95 96 O2 Delivery Nasal Cannula Nasal Cannula Nasal Cannula O2 Flow Rate 4.00 4.00 4.00 09/18/21 00:00 Intake Total 810 ml Output Total 900 ml Balance -90 ml Constitutional: well-developed, well-nourished, other (obese; lethargic - opens eyes, but does answer questions) Respiratory: No accessory muscle use; other (fair air entry, diminished at the bases) Cardiovascular: regular rate-rhythm, S1 and S2, systolic murmur (soft OCTAVIO at card base) Gastrointestional: No tender; distended; No guarding, No rebound Extremities: other (both lower legs wrapped in bandages that were not removed); No clubbing, No cyanosis; significant edema Skin: cool Results/Procedures: Labs Laboratory Tests 09/17/21 14:00: White Blood Count 11.7H, Red Blood Count 3.05L, Hemoglobin 8.3L, Hematocrit 28L, Mean Corpuscular Volume 90, Mean Corpuscular Hemoglobin 27, Mean Corpuscular Hemoglobin Concent 30L, Red Cell Distribution Width 16.2H, Platelet Count 427H, Mean Platelet Volume 9.7, Sodium Level 143, Potassium Level 2.8L, Chloride Level 108H, Carbon Dioxide Level 26, Anion Gap 9, Blood Urea Nitrogen 32H, Creatinine 1.57H, Estimat Glomerular Filtration Rate 50, BUN/Creatinine Ratio 20, Glucose Level 142H, Lactic Acid Level 0.69, Calcium Level 8.1L, Iron Level 36L, Total Iron Binding Capacity 99L, Unsaturated Iron Binding Capacity 63, Transferrin % Saturation 36, Ferritin 598.8H 09/17/21 18:36: Glucometer 109 09/18/21 03:09: White Blood Count 10.7, Red Blood Count 3.11L, Hemoglobin 8.2L, Hematocrit 28L, Mean Corpuscular Volume 90, Mean Corpuscular Hemoglobin 26, Mean Corpuscular Hemoglobin Concent 29L, Red Cell Distribution Width 16.3H, Platelet Count 468H, Mean Platelet Volume 9.6, Sodium Level 144, Potassium Level 3.3L, Chloride Level 110H, Carbon Dioxide Level 25, Anion Gap 9, Blood Urea Nitrogen 30H, Creatinine 1.25, Estimat Glomerular Filtration Rate 66, BUN/Creatinine Ratio 24, Glucose Level 183H, Calcium Level 8.1L, Immature Granulocyte % (Auto) 1, Neutrophils (%) (Auto) 71, Lymphocytes (%) (Auto) 14, Monocytes (%) (Auto) 8, Eosinophils (%) (Auto) 5, Basophils (%) (Auto) 1, Neutrophils # (Auto) 7.6, Lymphocytes # (Auto) 1.5, Monocytes # (Auto) 0.8, Eosinophils # (Auto) 0.6H, Basophils # (Auto) 0.1, Immature Granulocyte # (Auto) 0.1, Corrected Calcium 9.5, Phosphorus Level 1.3L, Magnesium Level 2.4, Total Bilirubin 0.2, Aspartate Amino Transf (AST/SGOT) 11, Alanine Aminotransferase (ALT/SGPT) 13, Alkaline Phosphatase 62, Total Protein 5.3L, Albumin 2.3L Microbiology 09/17/21 Gram Stain - Final, Resulted 09/17/21 Wound Culture - Preliminary, Resulted Pseudomonas aeruginosa 09/15/21 MRSA Screen - Final, Complete MRSA not isolated 09/15/21 Blood Culture - Preliminary, Resulted No growth 09/15/21 Urine Culture - Final, Complete NO GROWTH 09/15/21 C. difficile GDH Antigen & Toxins - Final, Resulted 09/15/21 Stool Culture, Resulted Pending Laboratory Tests 09/16/21 13:19 09/16/21 17:15 09/17/21 03:42 09/17/21 14:00 09/18/21 03:09 A/P: Assessment: Acute resp distress - requiring Bi-pap - refuses intubation - echo 09/16/21: difficult study, LVEF 55-60%, mild biatrial enlargement, PASP 30- 35 mmHg C Diff enteritis and and leg cellulitis and sepsis Hypotension: - low grade septic shock - required pressor support overnight DVT - A small amount of deep venous thrombosis is present in the left popliteal vein - management per medical services - Lovenox at this time APRIL - likely secondary to sepsis/hypotension - improving following fluids Morbid obesity Abnormal ECG, suggestive of old IMI Minimal troponin elevation, likely minimal type 2 CO due to hypotension Bilat leg swelling, likely due to venous insuff Plan: * Management of C Diff, LE leg wounds and sepsis is with the attending svce * Monitor labs * Management of anemia per medical services * Management of popliteal DVT per medical services (Lovenox) MARIA D LUO MD FACP FAC CCDS Sep 18, 2021 11:58
[2021-09-18] MEDS ORDERED: HYPOCHLOROUS ACID/NaCl (VASHE) 250 ML IR PRN (12:15)
--- NOTE | 2021-09-18 13:39 | Progress Note ---
DAPHNEYSUNSHINEBENNETT 09/18/21 1339: Progress Note Progress Notes/Assess & Plan Date Seen 09/18/21 Time Seen by Provider: 11:00 Assessment & Plan S: Patient is anxious today and having pain today of lower extremities, buttocks, and back and believes this is related to positioning in bed. He is repositioned regularly. Denies CP, SOB, n/v. Overall, feeling improved from yesterday. Expresses concern over frequency of dressing changes with prior care takers. Had home health then neighbor who would change his dressings before last care facility. States he does not have necessary equipment for his CPAP machine. ASSESSMENT VS improved today and off BiPAP on NC. Chronic leg wounds likely due to venous stasis and not underlying cardiac condition. PLAN Severe sepsis -Required LR fluid bolus on admission and required PICC line with pressors 09/16 -Off pressors -Leukocytosis now improved -Lasix 09/16 for anasarca -Zosyn pending wound culture sensitivities, add Flagyl 09/17 >Dressing change today DVT -L popliteal DVT on u/s 09/17 >on Lovenox 60 mg BID since admission NSTEMI -Elevated troponins likely 2 to demand ischemia on admission -ASA on admission -LVEF 55%, atrial enlargement Diarrhea -On oral antibiotics before admission, C diff positive -Flexseal -PO vancomycin Atelectasis -Min O2 o/n 94% Cellulitis -Pseudomonas >Zosyn, flagyl APRIL -renally adjust meds -replace electrolytes with checks Q4 -K 09/15, 09/16, 09/17 -on fluid replacement LORIN -ABG suggestive of LORIN or obesity hypoventilation syndrome -consider consulting RT for CPAP titration Focused Exam Lactate Level 09/15/21 17:45: Lactic Acid Level 1.42 09/15/21 22:00: Lactic Acid Level 1.02 09/17/21 14:00: Lactic Acid Level 0.69 Respiratory: Normal Breath Sounds Cardiovascular: Regular Rate, Rhythm, Systolic Murmur Capillary Refill: Less Than 3 Seconds Skin: cool (Edema 2+ on lower extremities, edema to mid tibia) ROMEO VAZQUEZ MD 09/18/212: Supervisory-Addendum Brief Verification & Attestation Participated in pt care: history, physical Personally performed: exam, history Care discussed with: Medical Student Procedures: n/a Verification and Attestation of Medical Student E/M Service A medical student performed and documented this service in my presence. I reviewed and verified all information documented by the medical student and made modifications to such information, when appropriate. I personally performed the physical exam and medical decision making. Romeo Vazquez, Sep 18, 2021,22:10 Severe Sepsis: Resolved C Diff Colitis: Patient has Flexseal, PO Vanc and IV Flagyl Chronic Venous Statis: Wound Care, Compression bandages DVT: Tx dosing Lovenox Plan to transfer to floor tomorrow if VS are stable BENNETT NELSON Sep 18, 2021 13:39 ROMEO VAZQUEZ MD Sep 18, 2021 22:12
[2021-09-18] MEDS: LACTATED RINGERS 1,000 ML IV SCH (14:15)
[2021-09-18] MEDS: FAMOTIDINE 20 MG (PEPCID) TABLET PO SCH (21:26)
[2021-09-19] MEDS: VANCOMYCIN 125 MG CAPSULE PO SCH ×5 (00:10→23:49)
[2021-09-19 03:09] LABS: BASOPHILS # (AUTO) 0.1 10^3/uL (0.0-0.1); BASOPHILS % (AUTO) 1 % (0-10); EOSINOPHILS # (AUTO) 0.7 10^3/uL (0.0-0.3); EOSINOPHILS % (AUTO) 7 % (0-10); HEMATOCRIT 29 % (40-54); HEMOGLOBIN 8.4 g/dL (13.3-17.7); LYMPHOCYTES % (AUTO) 20 % (12-44); MEAN CORPUSCULAR HEMOGLOBIN 27 pg (25-34); MEAN CORPUSCULAR HGB CONC 29 g/dL (32-36); MEAN CORPUSCULAR VOLUME 91 fL (80-99); MEAN PLATELET VOLUME 9.5 fL (9.0-12.2); MONOCYTES # (AUTO) 0.9 10^3/uL (0.0-1.0); MONOCYTES % (AUTO) 9 % (0-12); NEUTROPHILS # (AUTO) 5.8 10^3/uL (1.8-7.8); NEUTROPHILS % (AUTO) 58 % (42-75); PLATELET COUNT 400 10^3/uL (130-400)
[2021-09-19] MEDS: LACTATED RINGERS 1,000 ML IV SCH ×3 (03:11→19:36)
[2021-09-19] MEDS: oxyCODONE/APAP 10/325MG (PERCOCET 10) TABLET PO PRN ×4 (03:12→23:49)
[2021-09-19 03:20] LABS: ALBUMIN 2.2 GM/DL (3.2-4.5); POTASSIUM 3.2 MMOL/L (3.6-5.0)
[2021-09-19 03:24] LABS: BILIRUBIN,TOTAL 0.2 MG/DL (0.1-1.0)
[2021-09-19 03:26] LABS: CREATININE SERUM 0.88 MG/DL (0.60-1.30); PHOSPHORUS 2.5 MG/DL (2.3-4.7)
[2021-09-19 03:29] LABS: MAGNESIUM 2.2 MG/DL (1.6-2.4)
[2021-09-19] MEDS: NOREPINEPHRINE 8 MG/250 ML 250 ML IV SCH ×2 (03:46→11:05)
[2021-09-19] MEDS: VASOPRESSIN INJECTION 20 UNIT in NS (IVPB) 100 ML IV SCH ×2 (03:46→16:51)
[2021-09-19] MEDS: POTASSIUM CL 10MEQ/50ML IVPB 50 ML IV SCH ×4 (04:30→06:13)
[2021-09-19] MEDS: PIPERACILLIN SODIUM/TAZOBACTAM 4.5 GM in NS (IVPB) 100 ML IV SCH ×3 (05:26→21:59)
[2021-09-19] MEDS: metroNIDAZOLE 500MG/100ML IVPB 100 ML IV SCH ×3 (05:26→21:59)
[2021-09-19] MEDS: ENOXAPARIN 300 MG/3 ML (LOVENOX) MULTI-DOSE VIAL SQ SCH ×2 (08:21→22:00)
[2021-09-19] MEDS: FAMOTIDINE 20 MG (PEPCID) TABLET PO SCH ×2 (08:21→21:59)
--- NOTE | 2021-09-19 09:38 | Tele-ICU Progress Note ---
Subjective Date Seen by a Provider: Sep 19, 2021 Time Seen by a Provider: 09:38 Subjective/Events-last exam Patient clinically same but he did not use the BiPAP last night. Blood pressure is stable. Urine output is adequate. His wound cultures grew Pseudomonas aeruginosa. Last ABG showed respiratory acidosis. I will order another blood gas tomorrow and see whether his respiratory acidosis is improved. His respirat ory acidosis most likely due to obstructive sleep apnea in addition to his sepsis.Video visit made. Review of Systems ROS PER RN Sepsis Event Evaluation Height, Weight, BMI Height: '" Weight: lbs. oz. kg; 51.18 BMI Method: Focused Exam Lactate Level 09/17/21 14:00: Lactic Acid Level 0.69 Exam Exam Patient acknowledged, consented, and participated in this virtual visit which was conducted using real time audio/video Vital Signs Date Time Temp Pulse Resp B/P (MAP) Pulse Ox O2 Delivery O2 Flow Rate FiO2 09/19/21 08:23 94 Nasal Cannula 4.00 09/19/21 07:57 36.2 09/19/21 06:00 107 21 144/74 98 Nasal Cannula 4.00 09/19/21 05:00 105 22 131/88 95 Nasal Cannula 4.00 09/19/21 04:00 36.2 Nasal Cannula 4.00 09/19/21 04:00 94 Nasal Cannula 4.00 09/19/21 04:00 103 23 132/68 97 Nasal Cannula 4.00 09/19/21 03:00 101 23 110/57 98 Nasal Cannula 4.00 09/19/21 02:00 112 28 145/81 97 Nasal Cannula 4.00 09/19/21 01:00 101 23 129/63 98 Nasal Cannula 4.00 09/19/21 01:00 101 09/19/21 00:00 36.8 Nasal Cannula 4.00 09/19/21 00:00 103 25 137/72 96 Nasal Cannula 4.00 09/18/21 23:59 94 Nasal Cannula 4.00 09/18/21 23:00 105 21 144/70 98 Nasal Cannula 4.00 09/18/21 22:00 105 25 131/72 97 Nasal Cannula 4.00 09/18/21 21:56 100 Nasal Cannula 4.00 09/18/21 21:00 106 22 138/69 99 Nasal Cannula 4.00 09/18/21 20:24 35.8 09/18/21 20:00 108 24 123/68 99 Nasal Cannula 4.00 09/18/21 20:00 94 Nasal Cannula 4.00 09/18/21 19:00 105 24 114/78 88 Nasal Cannula 4.00 09/18/21 19:00 116 09/18/21 18:00 105 140/74 99 Nasal Cannula 4.00 09/18/21 17:00 108 167/86 97 Nasal Cannula 4.00 09/18/21 16:28 36.2 09/18/21 16:03 96 Nasal Cannula 4.00 09/18/21 16:00 104 158/83 98 Nasal Cannula 4.00 09/18/21 15:00 105 155/93 98 Nasal Cannula 4.00 09/18/21 14:17 98 127/74 09/18/21 14:16 98 127/74 09/18/21 14:00 97 30 110/60 99 Nasal Cannula 4.00 09/18/21 13:00 98 14 127/74 95 Nasal Cannula 4.00 09/18/21 12:57 97 09/18/21 12:56 36.1 09/18/21 12:00 98 16 144/90 94 Nasal Cannula 4.00 09/18/21 11:23 96 Nasal Cannula 4.00 09/18/21 11:00 98 18 123/67 95 Nasal Cannula 4.00 09/18/21 10:00 97 21 100/54 96 Nasal Cannula 4.00 I & O 09/19/21 07:00 Intake Total 1530 ml Output Total 3025 ml Balance -1495 ml Height & Weight Height: '" Weight: lbs. oz. kg; 51.18 BMI Method: General Appearance: Moderate Distress, Obese Neck: Full Range of Motion, Supple Respiratory: Normal Breath Sounds Cardiovascular: Regular Rate, Rhythm, Systolic Murmur Capillary Refill: Less Than 3 Seconds Gastrointestinal: non tender, soft, other (Morbidly obese. Pannus reflections do have some erythema suggestive of yeast infection) Extremity: Inflammation (BLLE erythema and scaling with small amt serosangunous drainage on anterior tibias during dressing change), Pedal Edema (Trace), Swelling Neurologic/Psychiatric: Alert, Oriented x3, No Motor/Sensory Deficits Skin: Rash Lymphatic: No Adenopathy Other comments PE PER RN Results Lab Laboratory Tests 09/17/21 14:00 09/18/21 03:09 09/19/21 03:02 Assessment/Plan Assessment/Plan 1. Severe sepsis probably secondary to cellulitis with pseudomonasa aeruginosa associated with the leg wounds. 2. Diarrhea due to C. difficile colitis 3. Dehydration with acute kidney injury 4. Elevated troponin secondary to possible type II myocardial infarction 5. Anemia of chronic disease 6. Possible obstructive sleep apnea causing respiratory acidosis Recommendations continue hydrate patient 2. IV antibiotics per primary team 3. Cardiology consultation requested for addressing the elevated troponin. 4. Continue BiPAP at nighttime and oxygenation with nasal cannula during daytime 5. Continue monitor BUN/creatinine and electrolytes as well as hemoglobin. 6. DVT prophylaxis and ulcer prophylaxis. 7.will repeat abg's Critical Care: Critically Ill Patient Time spent with patient (mins): 25 SAEID DOSHI MD Sep 19, 2021 09:38
[2021-09-19] MEDS: RT-ALBUTEROL SULF 2.5 MG/3 ML PRE-MIX VIAL INH SCH ×2 (10:00→20:21)
[2021-09-19] MEDS: NS IV 1000 ML 1,000 ML IV SCH (10:37)
--- NOTE | 2021-09-19 13:50 | Progress Note ---
BENNETT NELSON Sheri 09/19/21 1350: Progress Note Progress Notes/Assess & Plan Date Seen 09/19/21 Assessment & Plan S: Patient reporting moderate pain of lower extremities that is unchanged. Pt began removing periph IV while speaking with him this AM. Eating and drinking well. Feeling bowel movements with flexseal in place - more formed than yesterday but still liquid. Denies CP, SOB, n/v. Physical exam: Gen'l: anxious appearing, obese Cardio: RRR Pulm: CTAB, on 4L nc Abd: TTP, positive bowel sounds Extremities: trace edema (much improved from prior exams), compression dressings in place A/P Severe sepsis -Resolved DVT -L popliteal DVT on u/s 09/17 >on Lovenox 60 mg BID since admission NSTEMI -Elevated troponins likely 2/2 to demand ischemia on admission, given ASA -LVEF 55%, atrial enlargement Diarrhea -On oral antibiotics before admission, C diff positive -Flexseal -PO vancomycin Atelectasis -Satting 94% on 4L nc Cellulitis, Chronic venous stasis -Pseudomonas -Zosyn, flagyl -Compression dressings APRIL -Resolved LORIN -ABG suggestive of LORIN or obesity hypoventilation syndrome -consider consulting RT for CPAP titration Focused Exam Lactate Level 09/17/21 14:00: Lactic Acid Level 0.69 Respiratory: Normal Breath Sounds Cardiovascular: Regular Rate, Rhythm, Systolic Murmur Capillary Refill: Less Than 3 Seconds Skin: other (Compression dressing in place over chronic BLLE wounds) ROMEO VAZQUEZ MD 09/19/212044: Progress Note Progress Notes/Assess & Plan Time Seen by Provider: 09:45 Supervisory-Addendum Brief Verification & Attestation Participated in pt care: history, physical Personally performed: exam, history Care discussed with: Medical Student Procedures: n/a Verification and Attestation of Medical Student E/M Service A medical student performed and documented this service in my presence. I reviewed and verified all information documented by the medical student and made modifications to such information, when appropriate. I personally performed the physical exam and medical decision making. Romeo Vazquez, Sep 19, 2021,20:44 Chronic Venous Statis: Wound Care and compression C diff: Stool Volumn decreasing, plan to d/c flex seal tomorrow Debility: PT/OT, discussed the importance of working with PT to regain strength Otherwise agree with above documentation BENNETT NELSON Sep 19, 2021 13:50 ROMEO VAZQUEZ MD Sep 19, 2021 20:45
--- NOTE | 2021-09-19 13:53 | Occupational Therapy Eval ---
OT Evaluation-General/PLF Medical Diagnosis Admission Date Sep 15, 2021 at 20:05 Medical Diagnosis: Severe sepsis, C-diff Onset Date: Sep 15, 2021 Therapy Diagnosis Therapy Diagnosis: decreased ADL status Precautions Precautions/Isolations: Contact Isolation, Fall Prevention, Pressure Ulcer Referral Physician: Taylor Moss Reason: Evaluation/Treatment Medical History Current History ED with severe sepsis and diarrhea, positive for C-diff Social History Home: Group Home ADL-Prior Level of Function SCALE: Activities may be completed with or without assistive devices. 3-Vpfqmmircl-umovwqb completes the activity by him/herself with no assistance from a helper. 5-Set-up or Clean-up Assistance-helper sets up or cleans up; patient completes activity. [place] assists only prior to or following the activity. 4-Supervision or Touching Assistance-helper provides verbal cues and/or touching/steadying and/or contact guard assistance as patient completes activ ity. Assistance may be provided throughout the activity or intermittently. 3-Partial/Moderate Assistance-helper does LESS THAN HALF the effort. [place] lifts, holds or supports trunk or limbs, but provides less than half the effort. 2-Substantial/Maximal Assistance-helper does MORE THAN HALF the effort. [place] lifts or holds trunk or limbs and provides more than half the effort. 4-Qulbumetu-pkkweh does ALL the effort. Patient does none of the effort to complete the activity. Or, the assistance of 2 or more helpers is required for the patient to complete the activity. If activity was not attempted, code reason: 7-Patient Refused. 9-Not Applicable-not attempted and the patient did not perform the activity before the current illness, exacerbation or injury. 10-Not Attempted due to Environmental Limitations-(lack of equipment, weather restraints, etc.). 88-Not Attempted due to Medical Conditions or Safety Concerns. ADL PLOF Comments Pt reports requiring assistance with ADLs at PLOF, uses a FWW for functional mobility. Self Care: Needed Some Help Functional Cognition: Independent OT Current Status Subjective Pt in bed, refuses to sit EOB or complete movements. With encouragement agreeable to UE exercises. Pt reports "some" pain, but doesn't provide rating or location. Mental Status/Objective Patient Orientation: Person, Place, Situation Attachments: Drains (rectal tube), Yepez Catheter, IV, Oxygen Current Upper Extremity ROM Slightly impaired, BUE shoulder flexion to approx 90 degrees. Pt reports unable to feed, but demonstrated ability to bring bilateral hands to his mouth. Upper Extremity Coordination WFL Upper Extremity Strength grossly 3/5 ADL-Treatment Eating (QC): 6 (Per nursing report. ) Shower/Bathe Self (QC): 1 (per clincial judgment) Lower Body Dressing (QC): 1 (per clincial judgment) On/Off Footwear (QC): 1 (per clincial judgment) Toileting Hygiene (QC): 1 (per clincial judgment) Other Treatments Pt in bed, refused bed mobility and refused to sit EOB. With encouragement, agreeable to UE exercises. Pt reports he is unable to feed himself, with UE screen, pt demonstrated ability to bring bilateral hands to his mouth. Per pt's nurse, pt is able to feed himself independently and has not received any feeding assistance. Pt completed x3 reps BUE shoulder flexion and elbow flexion/extension, OT instructed pt to complete exercises throughout the day, increasing reps as tolerated. Post tx, pt in bed, call light in reach and all needs met. Education OT Patient Education: Correct positioning, Modified ADL techniques, Progress toward Goal/Update tx plan, Purpose of tx/functional activities Teaching Recipient: Patient Teaching Methods: Demonstration, Discussion Response to Teaching: Reinforcement Needed OT Snf Goals Hepatologist Goals Time Frame: Oct 04, 2021 Eating (QC): 6 Oral Hygiene (QC): 5 Toileting Hygiene (QC): 3 Shower/Bathe Self (QC): 3 Upper Body Dressing (QC): 4 Lower Body Dressing (QC): 3 On/Off Footwear (QC): 2 Additional Goals: 1-Demonstrate ADL Tasks, 2-Verbalize Understanding, 3- ImproveStrength/Britney 1=Demonstrate adherence to instructed precautions during ADL tasks. 2=Patient will verbalize/demonstrate understanding of assistive devices/modifications for ADL. 3=Patient will improve strength/tolerance for activity to enable patient to perform ADL's. OT Education/Plan Problem List/Assessment Assessment: Decreased Activ Tolerance, Decreased UE Strength, Impaired Funct Balance, Impaired I ADL's, Impaired Self-Care Skills Discharge Recommendations Plan/Recommendations: Continue POC Therapy Discharge Recommendati: Post Acute OT (SNF) Treatment Plan/Plan of Care Patient would benefit from OT for education, treatment and training to promote independence in ADL's, mobility, safety and/or upper extremity function for ADL's. Plan of Care: ADL Retraining, Functional Mobility, UE Funct Exercise/Act Treatment Duration: Oct 04, 2021 Frequency: 3 times per week (3-5 times per week) Estimated Hrs Per Day: .25 hour per day Rehab Potential: Guarded Time/GCodes Start Time: 13:33 Stop Time: 13:41 Total Time Billed (hr/min): 8 Billed Treatment Time 1, LUIS ANTONIO LINDSAY OT Sep 19, 2021 13:52
--- NOTE | 2021-09-19 14:06 | Physical Therapy Evaluation ---
PT Evaluation-General Medical Diagnosis Admission Date Sep 15, 2021 at 20:05 Medical Diagnosis: cellulitis Onset Date: Sep 15, 2021 Therapy Diagnosis Therapy Diagnosis: impaired mobility Precautions Precautions/Isolations: Contact Isolation, Fall Prevention, Pressure Ulcer Referral Physician: Taylor Reason for Referral: Evaluation/Treatment Medical History Additional Medical History obesity Social History Home: [facility] Prior Prior Level of Function SCALE: Activities may be completed with or without assistive devices. 3-Luthytgijy-kuewvfy completes the activity by him/herself with no assistance from a helper. 5-Set-up or Clean-up Assistance-helper sets up or cleans up; patient completes activity. [place] assists only prior to or following the activity. 4-Supervision or Touching Assistance-helper provides verbal cues and/or touching/steadying and/or contact guard assistance as patient completes activity. Assistance may be provided throughout the activity or intermittently. 3-Partial/Moderate Assistance-helper does LESS THAN HALF the effort. Theresa lifts, holds or supports trunk or limbs, but provides less than half the effort. 2-Substantial/Maximal Assistance-helper does MORE THAN HALF the effort. Theresa lifts or holds trunk or limbs and provides more than half the effort. 4-Ahuavwhws-raigzd does ALL the effort. Patient does none of the effort to complete the activity. Or, the assistance of 2 or more helpers is required for the patient to complete the activity. If activity was not attempted, code reason: 7-Patient Refused. 9-Not Applicable-not attempted and the patient did not perform the activity before the current illness, exacerbation or injury. 10-Not Attempted due to Environmental Limitations-(lack of equipment, weather restraints, etc.). 88-Not Attempted due to Medical Conditions or Safety Concerns. Patient is not very verbal, he does say that he was ambulating using a rolling walker. PT Evaluation-Current Subjective Patient in bed pre tx, has unrated pain in legs due to cellulitis. Patient states he isn't going to try to sit to the side of the bed or perform any exercises in bed because he "just doesn't want to do it right now". Objective Patient Orientation: Person Attachments: Oxygen, Yepez Catheter rectal tube ROM/Strength ROM Lower Extremities limited due to obesity and swelling Strength Lower Extremities patient has at least 3/5 strength in BLE Sensory Hearing: Functional Treatment Patient is educated on LE exercises he needs to perform in bed on his own and he ends up doing them. Patient performed 20 reps of AP and HS bilaterally. Assessment/Needs Patient in bed post tx with nurse call, phone, tray,all needs met. Patient has impaired mobility, strength, endurance. He wouldn't participate much in this evaluation. Rehab Potential: Poor PT Lpn Medical Assistant Goals Detention Goals PT Detention Goals Time Frame: Sep 26, 2021 Roll Left & Right (QC): 3 Sit to Lying (QC): 3 Lying-Sitting on Side/Bed(QC): 3 Sit to Stand (QC): 3 Chair/Fuy-cs-Vhpyo Xfer(QC): 3 PT Plan Problem List Problem List: Activity Tolerance, Functional Strength, Safety, Balance, Gait, Transfer, Bed Mobility, ROM Treatment/Plan Treatment Plan: Continue Plan of Care Treatment Plan: Bed Mobility, Education, Functional Activity Britney, Functional Strength, Gait, Safety, Therapeutic Exercise, Transfers Treatment Duration: Sep 26, 2021 Frequency: 6 times per week Estimated Hrs Per Day: .25 hour per day Patient and/or Family Agrees t: Yes Safety Risks/Education Patient Education: Correct Positioning, Safety Issues Teaching Recipient: Patient Teaching Methods: Demonstration, Discussion Response to Teaching: Reinforcement Needed Discharge Recommendations Plan Patient will perform bed mobility and transfer training, balance and endurance training, functional strengthening, gait training, and education, to improve functional mobility and independence at home. Therapy Discharge Recommendati: 24 Hour Supervision Time/GCodes Time In: 1333 Time Out: 1341 Total Billed Treatment Time: 8 Total Billed Treatment 1 visit BRANDO JENSEN PT Sep 19, 2021 14:06
[2021-09-20] MEDS: metroNIDAZOLE 500MG/100ML IVPB 100 ML IV SCH ×3 (05:25→21:19)
[2021-09-20] MEDS: PIPERACILLIN SODIUM/TAZOBACTAM 4.5 GM in NS (IVPB) 100 ML IV SCH ×2 (05:26→13:30)
[2021-09-20] MEDS: VANCOMYCIN 125 MG CAPSULE PO SCH ×3 (05:26→18:16)
[2021-09-20 06:00] LABS: ABG BASE EXCESS 5.3 MMOL/L (-2.5-2.5); ABG OXYGEN SATURATION 98 % (94-100); ABG PCO2 69 MMHG (35-45); ABG PO2 115 MMHG (79-93); ABG TCO2 33.8 MMOL/L (21.0-31.0)
[2021-09-20 06:03] LABS: INSPIRED O2 4L; VENTILATOR NO
[2021-09-20 06:04] LABS: ABG PH 7.28 (7.37-7.43); PATIENT TEMP 37.4
[2021-09-20 06:09] LABS: BASOPHILS # (AUTO) 0.1 10^3/uL (0.0-0.1); BASOPHILS % (AUTO) 1 % (0-10); EOSINOPHILS # (AUTO) 0.6 10^3/uL (0.0-0.3); EOSINOPHILS % (AUTO) 5 % (0-10); HEMATOCRIT 28 % (40-54); HEMOGLOBIN 8.1 g/dL (13.3-17.7); LYMPHOCYTES # (AUTO) 2.2 10^3/uL (1.0-4.0); LYMPHOCYTES % (AUTO) 17 % (12-44); MEAN CORPUSCULAR HEMOGLOBIN 27 pg (25-34); MEAN CORPUSCULAR HGB CONC 29 g/dL (32-36); MEAN CORPUSCULAR VOLUME 92 fL (80-99); MEAN PLATELET VOLUME 9.8 fL (9.0-12.2); MONOCYTES % (AUTO) 8 % (0-12); NEUTROPHILS # (AUTO) 8.1 10^3/uL (1.8-7.8); NEUTROPHILS % (AUTO) 63 % (42-75); PLATELET COUNT 388 10^3/uL (130-400); WHITE BLOOD COUNT 12.8 10^3/uL (4.3-11.0)
[2021-09-20 06:19] LABS: ALBUMIN 2.3 GM/DL (3.2-4.5); POTASSIUM 3.3 MMOL/L (3.6-5.0)
[2021-09-20 06:20] LABS: CALCIUM 7.9 MG/DL (8.5-10.1)
[2021-09-20 06:21] LABS: TOTAL PROTEIN 4.9 GM/DL (6.4-8.2)
[2021-09-20 06:23] LABS: BILIRUBIN,TOTAL 0.2 MG/DL (0.1-1.0)
[2021-09-20 06:24] LABS: PHOSPHORUS 2.4 MG/DL (2.3-4.7)
[2021-09-20 06:25] LABS: CREATININE SERUM 0.74 MG/DL (0.60-1.30)
[2021-09-20 06:27] LABS: MAGNESIUM 1.9 MG/DL (1.6-2.4)
[2021-09-20] MEDS: oxyCODONE/APAP 10/325MG (PERCOCET 10) TABLET PO PRN ×2 (08:27→13:28)
[2021-09-20] MEDS: FAMOTIDINE 20 MG (PEPCID) TABLET PO SCH ×2 (08:27→21:18)
[2021-09-20] MEDS: ENOXAPARIN 300 MG/3 ML (LOVENOX) MULTI-DOSE VIAL SQ SCH ×2 (08:28→21:19)
[2021-09-20] MEDS: RT-ALBUTEROL SULF 2.5 MG/3 ML PRE-MIX VIAL INH SCH ×2 (08:41→20:26)
[2021-09-20] MEDS ORDERED: KCL 20 MEQ TAB (K-DUR) PO NR (08:50)
[2021-09-20 08:54] VITALS: BP 147/68
[2021-09-20 08:58] VITALS: BP 147/68
--- NOTE | 2021-09-20 09:11 | Physical Therapy Daily Note ---
PT Daily Note-Current Subjective Patient presents laying in bed. Patient reports that he doesn't want to get out of bed but will help slide up in bed. Mental Status Patient Orientation: Person Attachments: Oxygen, Yepez Catheter, IV Transfers SCALE: Activities may be completed with or without assistive devices. 6-Bekuvzpldi-wgqmcqn completes the activity by him/herself with no assistance from a helper. 5-Set-up or Clean-up Assistance-helper sets up or cleans up; patient completes activity. [place] assists only prior to or following the activity. 4-Supervision or Touching Assistance-helper provides verbal cues and/or touching/steadying and/or contact guard assistance as patient completes activity. Assistance may be provided throughout the activity or intermittently. 3-Partial/Moderate Assistance-helper does LESS THAN HALF the effort. [place] lifts, holds or supports trunk or limbs, but provides less than half the effort. 2-Substantial/Maximal Assistance-helper does MORE THAN HALF the effort. [place] lifts or holds trunk or limbs and provides more than half the effort. 6-Kokxfbnns-qxmtat does ALL the effort. Patient does none of the effort to complete the activity. Or, the assistance of 2 or more helpers is required for the patient to complete the activity. If activity was not attempted, code reason: 7-Patient Refused. 9-Not Applicable-not attempted and the patient did not perform the activity before the current illness, exacerbation or injury. 10-Not Attempted due to Environmental Limitations-(lack of equipment, weather restraints, etc.). 88-Not Attempted due to Medical Conditions or Safety Concerns. Roll Left & Right (QC): 1 Patient was dependent x2 for bed mobility Assessment Patient declined exercises and OOB activities but agreed to perform some bed mobility. Patient was dependent x2 to move up in bed. Patient was unable to move his legs to help push in bed. When breakfast was placed in front of the patient he was able to grab the handrail on the bed and pull himself up to the tray table. Patient left post tx in bed with nurse call, phone, and breakfast in front of him. PT Penitentiary Goals Penitentiary Goals PT Ceo & Board Director Goals Time Frame: Sep 26, 2021 Roll Left & Right (QC): 3 Sit to Lying (QC): 3 Lying-Sitting on Side/Bed(QC): 3 Sit to Stand (QC): 3 Chair/Fyg-bi-Kkmxw Xfer(QC): 3 PT Plan Problem List Problem List: Activity Tolerance, Functional Strength, Safety, Balance, Gait, Transfer, Bed Mobility, ROM Treatment/Plan Treatment Plan: Continue Plan of Care Treatment Plan: Bed Mobility, Education, Functional Activity Britney, Functional Strength, Gait, Safety, Therapeutic Exercise, Transfers Treatment Duration: Sep 26, 2021 Frequency: 6 times per week Estimated Hrs Per Day: .25 hour per day Patient and/or Family Agrees t: Yes Safety Risks/Education Patient Education: Reviewed Precautions Teaching Recipient: Patient Teaching Methods: Discussion Time/GCodes Time In: 745 Time Out: 755 Total Billed Treatment Time: 10 Total Billed Treatment 1 Visit FA 10 min ASHLYN HUTCHISON PT Sep 20, 2021 09:11
--- NOTE | 2021-09-20 10:19 | Occ Therapy Progress Note ---
Therapy Progress Note Pt lying in bed, alert. Pt stated that he needs to move, but does not know what to do because he is falling apart. Attempted to engage pt in exercises or ADLs, pt talked around subject and would not agree to participate in therapy. Pt labile when talking about illness and hospital stay, attempted to have pt decide if he wanted toll line inspector services to visit with him. Pt would not say yes or no to this. Pt continued resist completing any tasks with NIELSON. Will see at next available time. 1 refusal ([id number]) JULISSA KENNEY Sep 20, 2021 10:19
[2021-09-20 12:00] VITALS: BP 169/89
[2021-09-20] MEDS: LACTATED RINGERS 1,000 ML IV SCH (13:30)
--- NOTE | 2021-09-20 14:03 | Progress Note ---
BENNETT NELSON 09/20/21 1403: Progress Note Progress Notes/Assess & Plan Date Seen 09/20/21 Time Seen by Provider: 10:15 Assessment & Plan S: Patient reporting moderate pain of lower extremities and back. Pt removed his PICC line o/n. Eating and drinking well. Feeling bowel movements with flexseal in place - decreasing output. Feeling wheezy. Denies CP, SOB, n/v. On 2L NC. Refused CPAP last night. Physical exam: Gen'l: obese Cardio: RRR Pulm: new crackles Abd: TTP, positive bowel sounds Extremities: trace edema, compression dressings in place A/P Severe sepsis -Resolved DVT -L popliteal DVT on u/s 09/17 -on Lovenox 60 mg BID since admission NSTEMI -Elevated troponins likely 22 to demand ischemia on admission, given ASA -LVEF 55%, atrial enlargement Diarrhea -On oral antibiotics before admission, C diff positive -PO vancomycin >Remove flexseal today given decrease in stool output Atelectasis -Wheezes today possibly volume overload >lasix 40mg IV once Cellulitis, Chronic venous stasis -Pseudomonas -Zosyn, flagyl -Compression dressings APRIL -Resolved LORIN -ABG suggestive of LORIN or obesity hypoventilation syndrome -CPAP titration Focused Exam Lactate Level 09/17/21 14:00: Lactic Acid Level 0.69 Respiratory: Wheezing Cardiovascular: Regular Rate, Rhythm ROMEO VAZQUEZ MD 09/20/21 1712: Supervisory-Addendum Brief Verification & Attestation Participated in pt care: history, physical Personally performed: exam, history Care discussed with: Medical Student Procedures: n/a Verification and Attestation of Medical Student E/M Service A medical student performed and documented this service in my presence. I reviewed and verified all information documented by the medical student and made modifications to such information, when appropriate. I personally performed the physical exam and medical decision making. Romeo Vazquez, Sep 20, 2021,17:12 BENNETT NELSON Sep 20, 2021 14:03 ROMEO VAZQUEZ MD Sep 20, 2021 17:12
[2021-09-20 16:39] VITALS: BP 171/81
[2021-09-20 20:50] VITALS: BP 158/87
[2021-09-21] VITALS (8 sets, daily range): BP systolic 128–191; BP diastolic 76–89
[2021-09-21] MEDS: VANCOMYCIN 125 MG CAPSULE PO SCH ×4 (00:01→17:24)
[2021-09-21] MEDS: oxyCODONE/APAP 10/325MG (PERCOCET 10) TABLET PO PRN ×3 (00:01→17:24)
[2021-09-21] MEDS: metroNIDAZOLE 500MG/100ML IVPB 100 ML IV SCH ×3 (05:08→20:00)
[2021-09-21 05:58] LABS: BASOPHILS # (AUTO) 0.1 10^3/uL (0.0-0.1); BASOPHILS % (AUTO) 1 % (0-10); EOSINOPHILS # (AUTO) 0.5 10^3/uL (0.0-0.3); EOSINOPHILS % (AUTO) 4 % (0-10); HEMATOCRIT 30 % (40-54); HEMOGLOBIN 8.5 g/dL (13.3-17.7); LYMPHOCYTES # (AUTO) 2.2 10^3/uL (1.0-4.0); LYMPHOCYTES % (AUTO) 15 % (12-44); MEAN CORPUSCULAR HEMOGLOBIN 26 pg (25-34); MEAN CORPUSCULAR HGB CONC 28 g/dL (32-36); MEAN CORPUSCULAR VOLUME 93 fL (80-99); MEAN PLATELET VOLUME 9.4 fL (9.0-12.2); MONOCYTES % (AUTO) 7 % (0-12); NEUTROPHILS # (AUTO) 9.6 10^3/uL (1.8-7.8); NEUTROPHILS % (AUTO) 66 % (42-75); PLATELET COUNT 366 10^3/uL (130-400); WHITE BLOOD COUNT 14.5 10^3/uL (4.3-11.0)
[2021-09-21 06:12] LABS: ALBUMIN 2.4 GM/DL (3.2-4.5); POTASSIUM 3.4 MMOL/L (3.6-5.0)
[2021-09-21 06:14] LABS: CALCIUM 8.2 MG/DL (8.5-10.1)
[2021-09-21 06:15] LABS: TOTAL PROTEIN 5.4 GM/DL (6.4-8.2)
[2021-09-21 06:16] LABS: BILIRUBIN,TOTAL 0.2 MG/DL (0.1-1.0)
[2021-09-21 06:18] LABS: PHOSPHORUS 2.7 MG/DL (2.3-4.7)
[2021-09-21 06:19] LABS: CREATININE SERUM 0.63 MG/DL (0.60-1.30)
[2021-09-21 06:21] LABS: MAGNESIUM 1.9 MG/DL (1.6-2.4)
[2021-09-21 06:34] LABS: BAND NEUTROPHILS 1 %; EOSINOPHILS % (MANUAL) 6 %; LYMPHOCYTES % (MANUAL) 19 %; METAMYELOCYTES % 1 %; MONOCYTES % (MANUAL) 3 %; NEUTROPHILS % (MANUAL) 70 %
[2021-09-21 06:35] LABS: MICROCYTOSIS SLIGHT; NUCLEATED RED BLOOD CELLS 4; POLYCHROMASIA SLIGHT; STOMATOCYTES SLIGHT
[2021-09-21] MEDS: FAMOTIDINE 20 MG (PEPCID) TABLET PO SCH ×2 (08:01→19:59)
[2021-09-21] MEDS: LACTATED RINGERS 1,000 ML IV SCH ×2 (08:01→19:59)
[2021-09-21] MEDS: RT-ALBUTEROL SULF 2.5 MG/3 ML PRE-MIX VIAL INH SCH ×2 (08:28→20:10)
[2021-09-21] MEDS: ENOXAPARIN 300 MG/3 ML (LOVENOX) MULTI-DOSE VIAL SQ SCH ×2 (10:54→20:00)
--- NOTE | 2021-09-21 12:12 | Progress Note - Hospitalist ---
Subjective HPI/CC On Admission Date Seen by Provider: Sep 21, 2021 Time Seen by Provider: 11:00 Subjective/Events-last exam Patient wants to sit up that he wants to lay back down he says he may be short of breath but he is not sure his abdomen is distended. Review of Systems Pulmonary: Dyspnea Objective Exam Vital Signs Vital Signs Date Time Temp Pulse Resp B/P (MAP) Pulse Ox O2 Delivery O2 Flow Rate FiO2 09/21/21 19:32 36.6 110 20 191/87 (121) 94 Nasal Cannula 4.00 09/20/21 08:58 36 Capillary Refill : Less Than 3 Seconds General Appearance: Chronically ill, Obese HEENT: Normal ENT Inspection Respiratory: Decreased Breath Sounds, Wheezing Cardiovascular: Regular Rate, Rhythm Gastrointestinal: Abnormal Bowel Sounds, Distended Extremity: Inflammation, Pedal Edema Neurologic/Psychiatric: Alert, Other Results/Procedures Lab Laboratory Tests 09/21/21 05:48 Patient resulted labs reviewed. Assessment/Plan Assessment and Plan Assess & Plan/Chief Complaint C. difficile diarrhea necessitating rectal tube. Increased abdominal distention White count remains elevated will obtain a KUB-on vancomycin and Flagyl p.o. Shortness of breath we will check obtain a chest x-ray follow fluid status closely, wheezing on met protocol Sepsis resolved History of DVT popliteal on ultrasound on Lovenox Non-ST segment elevation AL most likely secondary to demand ischemia normal ejection fraction Cellulitis bilateral lower extremities on Zosyn would like to discontinue that s oon is possibly because of C. diffi Prognosis guarded Critical Care Critically Ill Patient BRITTANIE FERRO MD Sep 21, 2021 12:12
--- NOTE | 2021-09-21 13:31 | Diagnostic Imaging Report ---
CLINICAL INDICATION: Patient with shortness of air, sepsis, and diarrhea. EXAM: Portable chest x-ray, semi-upright view. COMPARISON: Chest x-ray dated 09/16/2021. FINDINGS: Stable cardiomegaly with no significant pulmonary vascular congestion. There is interval development of mild right basilar atelectasis versus infiltrate. Stable mild left bibasilar atelectasis. Stable blunting of both costophrenic angle regions, and pleural effusions cannot be completely excluded. There is no pneumothorax. IMPRESSION: 1: Stable cardiomegaly with no significant pulmonary vascular congestion. 2: There is interval development of a mild right lung base atelectasis versus infiltrate. 3: Stable mild left basilar atelectasis. 4: Possible small bilateral pleural effusions. Dictated by: Dictated on workstation # [id number]
[2021-09-21] MEDS: LORazepam 0.5 MG (ATIVAN) TABLET PO PRN (14:53)
[2021-09-21] MEDS ORDERED: FUROSEMIDE 40 MG/4 ML INJ (LASIX) IVP ONE (16:30)
[2021-09-22] VITALS (7 sets, daily range): BP systolic 133–168; BP diastolic 74–85
[2021-09-22] MEDS: VANCOMYCIN 125 MG CAPSULE PO SCH ×5 (01:00→23:42)
[2021-09-22] MEDS: LACTATED RINGERS 1,000 ML IV SCH ×2 (01:02→23:18)
[2021-09-22 05:08] LABS: BASOPHILS # (AUTO) 0.1 10^3/uL (0.0-0.1); BASOPHILS % (AUTO) 1 % (0-10); EOSINOPHILS # (AUTO) 0.4 10^3/uL (0.0-0.3); EOSINOPHILS % (AUTO) 3 % (0-10); HEMATOCRIT 31 % (40-54); HEMOGLOBIN 8.6 g/dL (13.3-17.7); LYMPHOCYTES # (AUTO) 1.8 10^3/uL (1.0-4.0); LYMPHOCYTES % (AUTO) 14 % (12-44); MEAN CORPUSCULAR HEMOGLOBIN 26 pg (25-34); MEAN CORPUSCULAR HGB CONC 28 g/dL (32-36); MEAN CORPUSCULAR VOLUME 95 fL (80-99); MEAN PLATELET VOLUME 9.7 fL (9.0-12.2); MONOCYTES # (AUTO) 0.9 10^3/uL (0.0-1.0); MONOCYTES % (AUTO) 7 % (0-12); NEUTROPHILS # (AUTO) 8.2 10^3/uL (1.8-7.8); NEUTROPHILS % (AUTO) 66 % (42-75); PLATELET COUNT 368 10^3/uL (130-400); WHITE BLOOD COUNT 12.5 10^3/uL (4.3-11.0)
[2021-09-22] MEDS: metroNIDAZOLE 500MG/100ML IVPB 100 ML IV SCH (05:22)
[2021-09-22 05:25] LABS: ALBUMIN 2.5 GM/DL (3.2-4.5); POTASSIUM 3.4 MMOL/L (3.6-5.0)
[2021-09-22 05:26] LABS: CALCIUM 8.1 MG/DL (8.5-10.1)
[2021-09-22 05:28] LABS: TOTAL PROTEIN 5.6 GM/DL (6.4-8.2)
[2021-09-22 05:29] LABS: BILIRUBIN,TOTAL 0.2 MG/DL (0.1-1.0)
[2021-09-22 05:31] LABS: CREATININE SERUM 0.62 MG/DL (0.60-1.30); PHOSPHORUS 3.4 MG/DL (2.3-4.7)
[2021-09-22 05:34] LABS: MAGNESIUM 1.9 MG/DL (1.6-2.4)
[2021-09-22] MEDS: ENOXAPARIN 300 MG/3 ML (LOVENOX) MULTI-DOSE VIAL SQ SCH ×2 (09:41→21:15)
[2021-09-22] MEDS: FAMOTIDINE 20 MG (PEPCID) TABLET PO SCH ×2 (09:41→21:15)
--- NOTE | 2021-09-22 10:44 | Progress Note - Hospitalist ---
Subjective HPI/CC On Admission Date Seen by Provider: Sep 22, 2021 Time Seen by Provider: 10:15 Subjective/Events-last exam Patient is somewhat somnolent this morning. He does arouse and say he does not have any complaints. In addition he denies having any questions. Discussed with his nurse that her his stools were beginning to be formed though still malodorous yesterday. He had was placed back on clear liquids because of increased abdominal distention. We were unable to get a KUB because of his weight. His abdomen exam seems to be less distended today. He is off Zosyn now Review of Systems Neurological: Weakness Objective Exam Vital Signs Vital Signs Date Time Temp Pulse Resp B/P (MAP) Pulse Ox O2 Delivery O2 Flow Rate FiO2 09/22/21 11:15 36.4 103 32 152/85 (107) 99 NIV Bilevel 35.00 09/20/21 08:58 36 Capillary Refill : Less Than 3 Seconds General Appearance: Chronically ill Neck: Limited Range of Motion Respiratory: Lungs Clear, Normal Breath Sounds, No Accessory Muscle Use, No Respiratory Distress Cardiovascular: Gallop/S3, Tachycardia Gastrointestinal: Abnormal Bowel Sounds, Distended Extremity: Inflammation, Pedal Edema Neurologic/Psychiatric: Other (Sleepy arouses) Skin: Normal Color, Warm/Dry Results/Procedures Lab Laboratory Tests 09/22/21 04:30 Patient resulted labs reviewed. Assessment/Plan Assessment and Plan Assess & Plan/Chief Complaint C. difficile diarrhea resolving Increased abdominal distention White count remains elevated,-on vancomycin p.o. Shortness of breath chest x-ray showed some atelectasis in the base and mild cardiomegaly. Lungs are more clear today after Lasix x1 yesterday Sepsis resolved History of DVT popliteal on ultrasound on Lovenox Non-ST segment elevation [place] most likely secondary to demand ischemia normal ejection fraction-because of S3 gallop we will recheck an echocardiogram Cellulitis bilateral lower extremities completed Zosyn Abdominal distention and bowel sounds most consistent with an ileus-on clear liquids increased somnelence- ABG shows hypercapnic respiratory failure- discussed with RT- will begin Bipap.RE check ABG Prognosis guarded Critical Care Critically Ill Patient BRITTANIE FERRO MD Sep 22, 2021 10:43
[2021-09-22] MEDS: RT-ALBUTEROL SULF 2.5 MG/3 ML PRE-MIX VIAL INH SCH ×2 (11:04→18:04)
[2021-09-22 11:10] LABS: ABG OXYGEN SATURATION 99 % (94-100); ABG PO2 109 MMHG (79-93)
[2021-09-22 11:14] LABS: ABG PCO2 86 MMHG (35-45); ABG PH 7.25 (7.37-7.43); ALLENS TEST YES-POS
[2021-09-22 11:15] LABS: INSPIRED O2 4L; PATIENT TEMP 36.4; VENTILATOR NO
[2021-09-22] MEDS: oxyCODONE/APAP 10/325MG (PERCOCET 10) TABLET PO PRN (23:42)
[2021-09-23] VITALS (7 sets, daily range): BP systolic 130–176; BP diastolic 68–80
[2021-09-23] MEDS: VANCOMYCIN 125 MG CAPSULE PO SCH ×4 (06:11→22:14)
[2021-09-23 06:42] LABS: BASOPHILS # (AUTO) 0.1 10^3/uL (0.0-0.1); BASOPHILS % (AUTO) 1 % (0-10); EOSINOPHILS # (AUTO) 0.5 10^3/uL (0.0-0.3); EOSINOPHILS % (AUTO) 5 % (0-10); HEMATOCRIT 31 % (40-54); HEMOGLOBIN 8.7 g/dL (13.3-17.7); LYMPHOCYTES # (AUTO) 1.8 10^3/uL (1.0-4.0); LYMPHOCYTES % (AUTO) 16 % (12-44); MEAN CORPUSCULAR HEMOGLOBIN 27 pg (25-34); MEAN CORPUSCULAR HGB CONC 29 g/dL (32-36); MEAN CORPUSCULAR VOLUME 95 fL (80-99); MEAN PLATELET VOLUME 9.8 fL (9.0-12.2); MONOCYTES # (AUTO) 0.9 10^3/uL (0.0-1.0); MONOCYTES % (AUTO) 8 % (0-12); NEUTROPHILS # (AUTO) 7.1 10^3/uL (1.8-7.8); NEUTROPHILS % (AUTO) 63 % (42-75); PLATELET COUNT 346 10^3/uL (130-400); WHITE BLOOD COUNT 11.4 10^3/uL (4.3-11.0)
[2021-09-23 07:42] LABS: ALBUMIN 2.4 GM/DL (3.2-4.5); POTASSIUM 3.1 MMOL/L (3.6-5.0)
[2021-09-23 07:43] LABS: CALCIUM 8.1 MG/DL (8.5-10.1)
[2021-09-23 07:45] LABS: TOTAL PROTEIN 5.3 GM/DL (6.4-8.2)
[2021-09-23 07:46] LABS: BILIRUBIN,TOTAL 0.2 MG/DL (0.1-1.0)
[2021-09-23 07:48] LABS: CREATININE SERUM 0.62 MG/DL (0.60-1.30)
[2021-09-23 07:51] LABS: MAGNESIUM 1.8 MG/DL (1.6-2.4)
[2021-09-23] MEDS: RT-ALBUTEROL SULF 2.5 MG/3 ML PRE-MIX VIAL INH SCH ×2 (08:02→22:56)
--- NOTE | 2021-09-23 09:19 | Physical Therapy Progress Note ---
Therapy Progress Note Patient refused physical therapy this morning and said that he didn't feel good. May attempt later today. ASHLYN HUTCHISON PT Sep 23, 2021 09:19
[2021-09-23] MEDS: ENOXAPARIN 300 MG/3 ML (LOVENOX) MULTI-DOSE VIAL SQ SCH ×2 (09:55→20:58)
[2021-09-23] MEDS: FAMOTIDINE 20 MG (PEPCID) TABLET PO SCH ×2 (09:55→20:57)
--- NOTE | 2021-09-23 11:03 | Occ Therapy Progress Note ---
Therapy Progress Note OT tx attempted, pt requests OT to come back at a different time. OT educated pt on purpose and benefit of OT, but he continues to decline offered ADLs and UE Exercises. OT will attempt again next available date. 1, refusal [id number] LUIS ANTONIO RANDOLPH OT Sep 23, 2021 11:03
--- NOTE | 2021-09-23 12:00 | Progress Note - Hospitalist ---
GENI COX 09/23/21 1200: Subjective HPI/CC On Admission Date Seen by Provider: Sep 23, 2021 Time Seen by Provider: 10:00 Subjective/Events-last exam Patient is somnolent during the interview. Says that he does not have any concerns or questions. He is still having pain in his legs bilaterally but it is not as bad now that he is being managed by wound care. Patient refused to use BIPAP last night. Is still on a clear fluids diet and when asked if he wanted to resume his diet he said he was nervous it would upset his stomach. Review of Systems General: No Chills; Fatigue HEENT: No Head Aches Pulmonary: No Dyspnea, No Cough Cardiovascular: No: Chest Pain Gastrointestinal: Diarrhea; No: Nausea, Vomiting Musculoskeletal: leg pain (Bilaeral) Neurological: Weakness Objective Exam Vital Signs Vital Signs Date Time Temp Pulse Resp B/P (MAP) Pulse Ox O2 Delivery O2 Flow Rate FiO2 09/23/21 11:00 37.7 104 18 141/76 (97) 98 Nasal Cannula 6.00 09/20/21 08:58 36 Capillary Refill : Less Than 3 Seconds General Appearance: No Apparent Distress, WD/WN HEENT: PERRL/EOMI Neck: Full Range of Motion, Normal Inspection Respiratory: Chest Non Tender, Lungs Clear, Normal Breath Sounds, No Accessory Muscle Use, No Respiratory Distress Cardiovascular: Regular Rate, Rhythm Gastrointestinal: Normal Bowel Sounds, Distended Extremity: Normal Capillary Refill, Pedal Edema, Swelling (Bilateral legs) Neurologic/Psychiatric: Alert, Oriented x3, Depressed Affect Skin: Normal Color, Warm/Dry, Other (Cellulitis of the bilateral legs was wrapped in bandages) Results/Procedures Lab Laboratory Tests 09/23/21 06:18 Patient resulted labs reviewed. Assessment/Plan Assessment and Plan Assess & Plan/Chief Complaint Assessment: Acute and chronic respiratory failure with hypoxia Cellulitis of both lower extremities NSTEMI Acute DVT C diff diarrhea Elevated troponin Bilateral pulmonary infiltrates on chest x-ray Plan: Acute and chronic respiratory failure with hypoxia - Continue to try and persuade patient to use BIPAP Cellulitis of both lower extremities - Finished Zosyn - Wound care will continue to manage his dressings Acute DVT - Continue to take Enoxaparin C diff diarrhea - Continuing to have watery diarrhea - Will be taking patient off of the clear fluid diet which should improve the diarrhea Diagnosis/Problems Diagnosis/Problems (1) C. difficile diarrhea Status: Acute (2) Acute DVT (deep venous thrombosis) Status: Acute Qualifiers: Qualified Codes: I82.432 - Acute embolism and thrombosis of left popliteal vein (3) Acute and chronic respiratory failure with hypoxia Status: Acute (4) NSTEMI (non-ST elevated myocardial infarction) Status: Acute (5) Cellulitis of both lower extremities Status: Acute (6) Elevated troponin Status: Acute (7) Bilateral pulmonary infiltrates on chest x-ray Status: Acute BECCA SANON DO 09/24/21 0525: Subjective Subjective/Events-last exam Pt definitely has a personality disorder Wants to go back to [facility] C Diff managed Clear liquid diet to prevent a lot of diarrhea Has a little bit of an ileus Disposition soon Will have palliative care evaluate code status and realistic goals Lasix given for volume overload Pt refuses BiPAP Review of Systems General: Fatigue Pulmonary: Dyspnea Objective Exam General Appearance: No Apparent Distress, WD/WN, Chronically ill, Obese Respiratory: Decreased Breath Sounds Cardiovascular: Regular Rate, Rhythm Assessment/Plan Assessment and Plan Assess & Plan/Chief Complaint Assessment: Chronic cellulitis of the lower extremities DVT Noncompliant with BiPAP Super morbid obesity BMI 54 Obesity hypoventilation syndrome Plan: Discharge back to the long term tomorrow Very poor prognosis Supervisory-Addendum Brief Verification & Attestation Participated in pt care: history, MDM, physical Personally performed: exam, history, MDM, supervision of care Care discussed with: Medical Student Procedures: n/a Results interpretation: Verified all documentation Verification and Attestation of Medical Student E/M Service A medical student performed and documented this service in my presence. I reviewed and verified all information documented by the medical student and made modifications to such information, when appropriate. I personally performed the physical exam and medical decision making. Becca Sanon, Sep 24, 2021,05:24 GENI COX Sep 23, 2021 12:00 BECCA SANON DO Sep 24, 2021 05:25
[2021-09-23] MEDS: LACTATED RINGERS 1,000 ML IV SCH ×2 (13:31→23:18)
[2021-09-23] MEDS: oxyCODONE/APAP 10/325MG (PERCOCET 10) TABLET PO PRN (15:20)
[2021-09-23] MEDS ORDERED: KCL 10 MEQ TAB (MICRO K) PO ONE ×2 (20:00→22:08)
[2021-09-24] MEDS: oxyCODONE/APAP 10/325MG (PERCOCET 10) TABLET PO PRN ×2 (01:42→09:08)
[2021-09-24 03:35] VITALS: BP 134/70
[2021-09-24] MEDS ORDERED: KCL 10 MEQ TAB (MICRO K) PO ONE (04:49)
[2021-09-24] MEDS: VANCOMYCIN 125 MG CAPSULE PO SCH ×2 (06:18→11:58)
[2021-09-24 06:22] LABS: BASOPHILS # (AUTO) 0.1 10^3/uL (0.0-0.1); BASOPHILS % (AUTO) 1 % (0-10); EOSINOPHILS # (AUTO) 0.5 10^3/uL (0.0-0.3); EOSINOPHILS % (AUTO) 4 % (0-10); HEMATOCRIT 33 % (40-54); HEMOGLOBIN 8.9 g/dL (13.3-17.7); LYMPHOCYTES # (AUTO) 1.6 10^3/uL (1.0-4.0); LYMPHOCYTES % (AUTO) 15 % (12-44); MEAN CORPUSCULAR HEMOGLOBIN 26 pg (25-34); MEAN CORPUSCULAR HGB CONC 27 g/dL (32-36); MEAN CORPUSCULAR VOLUME 96 fL (80-99); MONOCYTES # (AUTO) 0.9 10^3/uL (0.0-1.0); MONOCYTES % (AUTO) 8 % (0-12); NEUTROPHILS % (AUTO) 65 % (42-75); PLATELET COUNT 306 10^3/uL (130-400); WHITE BLOOD COUNT 10.9 10^3/uL (4.3-11.0)
[2021-09-24 06:38] LABS: ALBUMIN 2.4 GM/DL (3.2-4.5); POTASSIUM 3.1 MMOL/L (3.6-5.0)
[2021-09-24 06:39] LABS: CALCIUM 8.1 MG/DL (8.5-10.1)
[2021-09-24 06:40] LABS: TOTAL PROTEIN 5.4 GM/DL (6.4-8.2)
[2021-09-24 06:42] LABS: BILIRUBIN,TOTAL 0.2 MG/DL (0.1-1.0)
[2021-09-24 06:43] LABS: PHOSPHORUS 3.1 MG/DL (2.3-4.7)
[2021-09-24 06:44] LABS: CREATININE SERUM 0.61 MG/DL (0.60-1.30)
[2021-09-24 06:47] LABS: MAGNESIUM 2.1 MG/DL (1.6-2.4)
[2021-09-24] MEDS ORDERED: KCL 10 MEQ TAB (MICRO K) PO SCH (07:00)
[2021-09-24 07:26] VITALS: BP 128/67
[2021-09-24] MEDS: FAMOTIDINE 20 MG (PEPCID) TABLET PO SCH (09:08)
--- NOTE | 2021-09-24 09:28 | Physical Therapy Progress Note ---
Therapy Progress Note Patient in bed and barely spoke to this PT. Patient did decline therapy on this date. Due to multiple refusals, PT to dismiss patient from services at this time. 1 ref ASHLYN HUTCHISON PT Sep 24, 2021 09:28
[2021-09-24] MEDS ORDERED: FAMO20TA5 PO (10:06)
[2021-09-24] MEDS ORDERED: RIVA20TA PO (10:06)
[2021-09-24] MEDS ORDERED: CHOL4PAC16 PO (10:06)
[2021-09-24] MEDS ORDERED: VANC125C11 PO (10:06)
[2021-09-24] MEDS ORDERED: RIVA15TA PO (10:06)
[2021-09-24] MEDS ORDERED: FURO-124 PO (10:06)
[2021-09-24] MEDS ORDERED: ACET250T3 PO (10:07)
[2021-09-24] MEDS ORDERED: LISI10TA25 PO (10:07)
[2021-09-24] MEDS ORDERED: THEO400T PO (10:07)
[2021-09-24] MEDS ORDERED: OXYC1TAB12 PO (10:07)
--- NOTE | 2021-09-24 10:08 | Discharge Summary ---
Discharge Summary Hospital Course Was the Problem List Reviewed?: Yes Problems/Dx: (1) C. difficile diarrhea Status: Acute (2) Acute DVT (deep venous thrombosis) Status: Acute Qualifiers: Qualified Codes: I82.432 - Acute embolism and thrombosis of left popliteal vein (3) Acute and chronic respiratory failure with hypoxia Status: Acute (4) NSTEMI (non-ST elevated myocardial infarction) Status: Acute (5) Cellulitis of both lower extremities Status: Acute (6) Elevated troponin Status: Acute (7) Bilateral pulmonary infiltrates on chest x-ray Status: Acute Hospital Course Date of Admission: Sep 15, 2021 at 20:05 Admission Diagnosis : Family Physician/Provider: Satinder Edmonds MD Date of Discharge: 09/24/21 Discharge Diagnosis: C. difficile colitis, chronic lower extremity cellulitis, obesity hypoventilation syndrome noncompliant with CPAP, acute DVT Hospital Course: Kuldeep pennington a 61yo M admitted on 09/15/21 from the ER for hypotension, diarrhea, and lower extremity wounds. Arrived to ED with soft pressures that responded to LR bolus. Had elevated troponins and RBBB on EKG and was given ASA. CXR showed scattered atelectasis and/or infiltrates. There was concern for severe sepsis. ABG suggestive of LORIN. Was positive for C diff. Reports he received Zosyn during last hospitalization and was completing oral antibiotics when diarrhea started. Patient was started on a nasal cannula when admitted. Had a PICC placement due to soft blood pressures. Culture of leg ulcer grew back Pseudomonas and Staph aureus. Was treated with Zosyn and wound care was consulted for his cellulitis. Cardiology was consulted for his abnormal EKG and elevated troponin. Echocardiography was done in 09/16/21: difficult study, LVEF 55-60%, mild biatrial enlargement, PASP 30-35 mmHg. Chronic leg wounds likely due to venous stasis and not underlying cardiac condition. On 09/17/21 a DVT was found with US and patient was started on Lovenox. Despite concern over his abnormal ABG the patient refused to wear BIPAP toward the end of his stay. For his C diff. infection the patient was started on PO vancomycin 250mg and had a flexseal placed. Had abdominal distention and was started on Lasix and changed to a clear fluids diet to reduce swelling. Once swelling had gone down the patient was taken off the clear fluids diet and his stools became more solid. Patient was refusing to work with PT/OT. Patient is on 5L of O2 on nasal cannula at discharge. Will be returning to [facility]. Is being sent home with vancomycin 125mg, Rivaroxaban 35mg, oxycodone/acetaminophen 325mg, furosemide 40mg, famotidine 20mg, and cholestyramine 4 gm. GENI COX Labs and Pending Lab Test: Laboratory Tests 09/24/21 05:42: White Blood Count 10.9, Red Blood Count 3.37L, Hemoglobin 8.9L, Hematocrit 33L, Mean Corpuscular Volume 96, Mean Corpuscular Hemoglobin 26, Mean Corpuscular Hemoglobin Concent 27L, Red Cell Distribution Width 18.3H, Platelet Count 306, Mean Platelet Volume 10.0, Immature Granulocyte % (Auto) 8, Neutrophils (%) (Auto) 65, Lymphocytes (%) (Auto) 15, Monocytes (%) (Auto) 8, Eosinophils (%) (Auto) 4, Basophils (%) (Auto) 1, Neutrophils # (Auto) 7.0, Lymphocytes # (Auto) 1.6, Monocytes # (Auto) 0.9, Eosinophils # (Auto) 0.5H, Basophils # (Auto) 0.1, Immature Granulocyte # (Auto) 0.8H, Sodium Level 144, Potassium Level 3.1L, Chloride Level 102, Carbon Dioxide Level 32, Anion Gap 10, Blood Urea Nitrogen 6L, Creatinine 0.61, Estimat Glomerular Filtration Rate 109, BUN/Creatinine Ratio 10, Glucose Level 137H, Calcium Level 8.1L, Corrected Calcium 9.4, Phosphorus Level 3.1, Magnesium Level 2.1, Total Bilirubin 0.2, Aspartate Amino Transf (AST/SGOT) 26, Alanine Aminotransferase (ALT/SGPT) 43, Alkaline Phosphatase 56, Total Protein 5.4L, Albumin 2.4L Microbiology 09/17/21 Gram Stain - Final, Complete 09/17/21 Wound Culture - Final, Complete Pseudomonas aeruginosa Staphylococcus aureus 09/15/21 MRSA Screen - Final, Complete MRSA not isolated 09/15/21 Blood Culture - Final, Complete No growth 09/15/21 Urine Culture - Final, Complete NO GROWTH 09/15/21 C. difficile GDH Antigen & Toxins - Final, Complete 09/15/21 Stool Culture - Final, Complete Home Meds Active Theophylline (Theophylline Anhydrous) 400 Mg Tablet.er 400 Mg PO DAILY Lisinopril 10 Mg Tablet 10 Mg PO DAILY Acetazolamide 250 Mg Tablet 250 Mg PO DAILY Questran Packet (Cholestyramine (with Sugar)) 4 Gm Powd.pack 4 Gm PO TID PRN Xarelto (Rivaroxaban) 20 Mg Tablet 20 Mg PO DAILY start after 15mg PO BID x 3 weeks supply completed Xarelto (Rivaroxaban) 15 Mg Tablet 15 Mg PO BID WITH MEALS Lasix (Furosemide) 40 Mg Tablet 40 Mg PO Q48H Famotidine 20 Mg Tablet 20 Mg PO BID Vancocin HCl (Vancomycin HCl) 125 Mg Capsule 125 Mg PO QID 1 PO QID x 7 days then 1 PO TID x 7 days Reported Oxycodone-Acetaminophen 10-325 (Oxycodone HCl/Acetaminophen) 1 Each Tablet 1 Each PO Q6H PRN Cefdinir 300 Mg Capsule 300 Mg PO BID STARTED TAKING 09/10/2021 7 DAY SUPPLY Tylenol (Acetaminophen) 325 Mg Tablet 650 Mg PO Q6H PRN Furosemide 80 Mg Tablet 80 Mg PO DAILY Assessment/Pt Instructions PCP in 1 week to [facility] Discharge Planning: <30 minutes discharge planning Discharge Instructions Discharge Diet: No Restrictions Discharge Physical Examination Vital Signs Vital Signs Date Time Temp Pulse Resp B/P (MAP) Pulse Ox O2 Delivery O2 Flow Rate FiO2 09/24/21 09:40 Nasal Cannula 4.00 09/24/21 07:26 36.8 107 20 128/67 (87) 98 09/23/21 23:44 95 General Appearance: No Apparent Distress, WD/WN, Chronically ill, Obese Allergies: Coded Allergies: No Known Drug Allergies (Unverified , 09/15/21) Discharge Summary Date of Admission Sep 15, 2021 at 20:05 Date of Discharge Discharge Date: Sep 24, 2021 Discharge Diagnosis Assessment: Chronic cellulitis of the lower extremities DVT Noncompliant with BiPAP Super morbid obesity BMI 54 Obesity hypoventilation syndrome Plan: Discharge back to the [facility] tomorrow Very poor prognosis (1) C. difficile diarrhea Status: Acute (2) Acute DVT (deep venous thrombosis) Status: Acute Qualifiers: Qualified Codes: I82.432 - Acute embolism and thrombosis of left popliteal vein (3) Acute and chronic respiratory failure with hypoxia Status: Acute (4) NSTEMI (non-ST elevated myocardial infarction) Status: Acute (5) Cellulitis of both lower extremities Status: Acute (6) Elevated troponin Status: Acute (7) Bilateral pulmonary infiltrates on chest x-ray Status: Acute LC SANON DO Sep 24, 2021 10:08
--- NOTE | 2021-09-24 10:09 | Discharge Inst-Skilled Nursing ---
Discharge Inst-Skilled NF Reconcile Patient Problems Problems Reviewed?: Yes Patient Instructions Patient Problems: Debility Consult/Follow Up/Orders Follow Up Appt.: PCP 1 week Skilled NF Admit to: [facility] [place] [facility] ([facility]) I certify that SNF services are required to be given on an inpatient basis because of the above named patient's need for longterm care on a continuing basis for the conditions(s) for which he/she was receiving inpatient hospital services prior to his/her transfer to the SNF. [facility] Facility Order: Nursing Services, Customer Engagement Representative-Evaluate & Treat, Physical Therapy-Evaluate & Treat Oxygen Delivery Method: Nasal Cannula Discharge Diet: No Restrictions Resuscitation Status: Do Not Resuscitate New & Resume Previous Orders New Medications: Cholestyramine (with Sugar) (Questran Packet) 4 Gm Powd.pack 4 GM PO TID PRN for 60, #60 EACH Furosemide (Lasix) 40 Mg Tablet 40 MG PO Q48H, #30 TAB Oxycodone HCl/Acetaminophen (Percocet 10-325 mg Tablet) 1 Each Tablet 1 TAB PO BID PRN for PAIN-MODERATE MDD 3 TABS, #30 TAB Rivaroxaban (Xarelto) 15 Mg Tablet 15 MG PO BID WITH MEALS, #28 TAB Rivaroxaban (Xarelto) 20 Mg Tablet 20 MG PO DAILY, #30 TAB 5 Refills start after 15mg PO BID x 3 weeks supply completed Vancomycin HCl (Vancocin HCl) 125 Mg Capsule 125 MG PO QID, #50 CAP 1 PO QID x 7 days then 1 PO TID x 7 days Famotidine (Famotidine) 20 Mg Tablet 20 MG PO BID, #60 TAB Continued Medications: Acetaminophen (Tylenol) 325 Mg Tablet 650 MG PO Q6H PRN for PAIN-MILD (1-4), TAB Acetazolamide (Acetazolamide) 250 Mg Tablet 250 MG PO DAILY, #30 TAB (This prescription has been renewed) Lisinopril (Lisinopril) 10 Mg Tablet 10 MG PO DAILY, #30 TAB (This prescription has been renewed) Theophylline Anhydrous (Theophylline) 400 Mg Tablet.er 400 MG PO DAILY, #30 TAB (This prescription has been renewed) Discontinued Medications: Cefdinir (Cefdinir) 300 Mg Capsule 300 MG PO BID, CAP STARTED TAKING 09/10/2021 7 DAY SUPPLY Furosemide (Furosemide) 80 Mg Tablet 80 MG PO DAILY, TAB Oxycodone HCl/Acetaminophen (Oxycodone-Acetaminophen 10-325) 1 Each Tablet 1 EACH PO Q6H PRN for PAIN-MODERATE (5-7), TAB Becca Cheng Sep 24, 2021 10:09 BECCA CHENG DO Sep 24, 2021 10:09
[2021-09-24] MEDS: ENOXAPARIN 300 MG/3 ML (LOVENOX) MULTI-DOSE VIAL SQ SCH (10:14)
--- NOTE | 2021-09-24 11:33 | Progress Note ---
GENI COX 09/24/21 1133: Progress Note Kuldeep is a 61yo M admitted on 09/15/21 from the ER for hypotension, diarrhea, and lower extremity wounds. Arrived to ED with soft pressures that responded to LR bolus. Had elevated troponins and RBBB on EKG and was given ASA. CXR showed scattered atelectasis and/or infiltrates. There was concern for severe sepsis. ABG suggestive of LORIN. Was positive for C diff. Reports he received Zosyn during last hospitalization and was completing oral antibiotics when diarrhea started. Patient was started on a nasal cannula when admitted. Had a PICC placement due to soft blood pressures. Culture of leg ulcer grew back Pseudomonas and Staph aureus. Was treated with Zosyn and wound care was consulted for his cellulitis. Cardiology was consulted for his abnormal EKG and elevated troponin. Echocardiography was done in 09/16/21: difficult study, LVEF 55-60%, mild biatrial enlargement, PASP 30-35 mmHg. Chronic leg wounds likely due to venous stasis and not underlying cardiac condition. On 09/17/21 a DVT was found with US and patient was started on Lovenox. Despite concern over his abnormal ABG the patient refused to wear BIPAP toward the end of his stay. For his C diff. infection the patient was started on PO vancomycin 250mg and had a flexseal placed. Had abdominal distention and was started on Lasix and changed to a clear fluids diet to reduce swelling. Once swelling had gone down the patient was taken off the clear fluids diet and his stools became more solid. Patient was refusing to work with PT/OT. Patient is on 5L of O2 on nasal cannula at discharge. [facility] be returning [facility]. Is being sent home with vancomycin 125mg, Rivaroxaban 35mg, oxycodone/acetaminophen 325mg, furosemide 40mg, famotidine 20mg, and cholestyramine 4 gm. BECCA SANON DO 09/25/21 55: Supervisory-Addendum Brief Verification & Attestation Participated in pt care: history, MDM, physical Personally performed: exam, history, MDM, supervision of care Care discussed with: Medical Student Procedures: n/a Results interpretation: Verified all documentation Verification and Attestation of Medical Student E/M Service A medical student performed and documented this service in my presence. I reviewed and verified all information documented by the medical student and made modifications to such information, when appropriate. I personally performed the physical exam and medical decision making. Becca Sanon, Sep 25, 2021,05:55 GENI COX Sep 24, 2021 11:33 BECCA SANON DO Sep 25, 2021 05:55
[2021-09-24 11:46] VITALS: BP 124/69
[2021-09-24] MEDS: LORazepam 0.5 MG (ATIVAN) TABLET PO PRN (11:58)
--- NOTE | 2021-09-24 13:31 | Occ Therapy Progress Note ---
Therapy Progress Note Due to multiple refusals to participate in OT sessions, OT to discharge pt from OT services. Pt to discharge from hospital 09/24/21 to [facility]. JULISSA KENNEY Sep 24, 2021 13:31
[2021-09-25] MEDS ORDERED: NITR100C PO (23:13)
== END 2021-09-24 13:43 | DRG 871 ==
LOC: ER 17:32 → ICU 20:05 → 4TH 09-19 14:27
PROVIDERS: ADMIT Internal Medicine; ATTEND Internal Medicine
PROC: 8E0ZXY6 Isolation (ICD-10-PCS; 2021-09-15)
PROC: 5A09357 Assistance with Respiratory Ventilation, Less than 24 Consecutive Hours, Continuous Positive Airway Pressure (ICD-10-PCS; principal; 2021-09-16)
DX: A41.9 Sepsis, unspecified organism (principal); J96.22 Acute and chronic respiratory failure with hypercapnia; R65.21 Severe sepsis with septic shock; I21.A1 Myocardial infarction type 2; L03.116 Cellulitis of left lower limb; L03.115 Cellulitis of right lower limb; N17.9 Acute kidney failure, unspecified; A04.72 Enterocolitis due to Clostridium difficile, not specified as recurrent; Z68.43 Body mass index [BMI] 50.0-59.9, adult; E66.2 Morbid (severe) obesity with alveolar hypoventilation; I82.432 Acute embolism and thrombosis of left popliteal vein; L97.229 Non-pressure chronic ulcer of left calf with unspecified severity; L97.219 Non-pressure chronic ulcer of right calf with unspecified severity; K56.7 Ileus, unspecified; E46 Unspecified protein-calorie malnutrition; J98.11 Atelectasis; Z66 Do not resuscitate; E86.9 Volume depletion, unspecified; E87.6 Hypokalemia; E86.0 Dehydration; I87.2 Venous insufficiency (chronic) (peripheral); D63.8 Anemia in other chronic diseases classified elsewhere; B96.5 Pseudomonas (aeruginosa) (mallei) (pseudomallei) as the cause of diseases classified elsewhere; B95.62 Methicillin resistant Staphylococcus aureus infection as the cause of diseases classified elsewhere; Z87.891 Personal history of nicotine dependence
CPT/HCPCS: 36415; 36569; 51702; 71045; 76937; 80048; 80053; 81000; 82728; 82805; 82947; 83540; 83550; 83605; 83735; 83880; 84100; 84145; 84484; 85007; 85025; 85027; 85610; 85730; 86141; 86850; 86900; 86901; 87015; 87040; 87045; 87046; 87070; 87077; 87081; 87088; 87186; 87205; 87324; 87449; 87899; 93005; 93306; 93970; 94640; 94660; 94664; 94760; 96361; 96365; 96372; 96375; 99291

== ENCOUNTER 2021-09-25 19:55 | Emergency (ER) | payer MEDICAID ==
[~2021-09-25 19:55] MED LIST: ACET250T3 PO; ACET325T38 PO; AMLO-250 PO; CEFD300C3 PO; CHOL4PAC16 PO; FAMO20TA5 PO; FURO-124 PO; FURO80TA3 PO; LISI10TA25 PO; OXYC-556 PO; OXYC1TAB12 PO; RIVA15TA PO; RIVA20TA PO; SILV10PO2 MC; TERB25PO MC; THEO400T PO; VANC125C11 PO
--- NOTE | 2021-09-25 20:32 | Diagnostic Imaging Report ---
EXAMINATION: Chest 1 view HISTORY: AMS COMPARISON: 09/21/2021 FINDINGS: Stable enlargement of the cardiac silhouette. Increasing interstitial and airspace opacities throughout both lungs. Mild blunting of the right costophrenic angle. No pneumothorax. The osseous structures are intact. IMPRESSION: 1. Increasing right pleural effusion with patchy opacities throughout both lungs. Findings can be seen with worsening edema or pneumonia. Dictated by: Dictated on workstation # [id number]
[2021-09-25 20:40] LABS: BASOPHILS # (AUTO) 0.1 10^3/uL (0.0-0.1); BASOPHILS % (AUTO) 1 % (0-10); EOSINOPHILS # (AUTO) 0.2 10^3/uL (0.0-0.3); EOSINOPHILS % (AUTO) 1 % (0-10); HEMATOCRIT 31 % (40-54); HEMOGLOBIN 8.7 g/dL (13.3-17.7); LYMPHOCYTES # (AUTO) 1.4 10^3/uL (1.0-4.0); LYMPHOCYTES % (AUTO) 11 % (12-44); MEAN CORPUSCULAR HEMOGLOBIN 27 pg (25-34); MEAN CORPUSCULAR HGB CONC 28 g/dL (32-36); MEAN CORPUSCULAR VOLUME 98 fL (80-99); MEAN PLATELET VOLUME 9.5 fL (9.0-12.2); MONOCYTES # (AUTO) 0.9 10^3/uL (0.0-1.0); MONOCYTES % (AUTO) 7 % (0-12); NEUTROPHILS # (AUTO) 9.6 10^3/uL (1.8-7.8); NEUTROPHILS % (AUTO) 74 % (42-75); PLATELET COUNT 327 10^3/uL (130-400); WHITE BLOOD COUNT 13.1 10^3/uL (4.3-11.0)
[2021-09-25 20:48] LABS: ALBUMIN 2.7 GM/DL (3.2-4.5); POTASSIUM 3.1 MMOL/L (3.6-5.0)
--- NOTE | 2021-09-25 20:48 | Diagnostic Imaging Report ---
EXAMINATION: CT head without contrast. TECHNIQUE: Multiple contiguous axial images were obtained through the brain without the use of intravenous contrast. All CT scans use one or more of the following dose optimizing techniques: automated exposure control, MA and/or KvP adjustment based on patient size and exam type or iterative reconstruction. HISTORY: Altered mental status COMPARISON: None available. FINDINGS: The ventricles and sulci are normal. No abnormal attenuation of brain parenchyma is present. No acute intracranial hemorrhage or abnormal extra-axial fluid collections are present. Calcification of the intracranial ICAs. No hyperdense vessel. The calvarium is intact. The mastoid air cells are clear. Mucosal thickening of the paranasal sinuses. The orbits are normal. IMPRESSION: 1. No acute intracranial abnormality. Dictated by: Dictated on workstation # [id number]
[2021-09-25 20:49] LABS: CALCIUM 8.2 MG/DL (8.5-10.1)
[2021-09-25 20:51] LABS: TOTAL PROTEIN 5.8 GM/DL (6.4-8.2)
[2021-09-25 20:52] LABS: BILIRUBIN,TOTAL 0.2 MG/DL (0.1-1.0)
[2021-09-25 20:54] LABS: CREATININE SERUM 1.09 MG/DL (0.60-1.30)
[2021-09-25 21:02] LABS: INR 1.2 (0.8-1.4); PROTHROMBIN TIME PATIENT 15.4 SEC (12.2-14.7)
[2021-09-25 21:26] LABS: ABG BASE EXCESS 12.6 MMOL/L (-2.5-2.5); ABG OXYGEN SATURATION 94 % (94-100); ABG PO2 70 MMHG (79-93)
[2021-09-25 21:28] LABS: ABG PCO2 86 MMHG (35-45); ABG PH 7.29 (7.37-7.43); INSPIRED O2 3L
[2021-09-25 21:29] LABS: PATIENT TEMP 37.3; VENTILATOR NO
[2021-09-25 21:38] LABS: BILIRUBIN,URINE NEGATIVE (NEGATIVE); CLARITY,URINE CLOUDY; COLOR,URINE DARK YELLOW; GLUCOSE, URINE (UA) NEGATIVE (NEGATIVE); KETONES,URINE NEGATIVE (NEGATIVE); LEUKOCYTE ESTERASE ,URINE TRACE (NEGATIVE); NITRITE,URINE POSITIVE (NEGATIVE); PROTEIN,URINE 2+ (NEGATIVE)
[2021-09-25 21:47] LABS: AMORPHOUS SEDIMENT,UR FEW AMOR URATES /LPF; BACTERIA,URINE FEW /HPF; WBC,URINE 25-50 /HPF
[2021-09-25] MEDS: POTASSIUM CL 10MEQ/50ML IVPB 50 ML IV ONE ×2 (22:08→22:46)
[2021-09-25] MEDS ORDERED: KCL 10 MEQ TAB (MICRO K) PO ONE (23:00)
[2021-09-25] MEDS ORDERED: NITROFURANTOIN 100 MG (MACROBID) CAPSULE PO ONE (23:00)
--- NOTE | 2021-09-25 23:06 | ED General ---
General Chief Complaint: General Problems/Pain Stated Complaint: SEPSIS Nursing Triage Note: PT TO ER BY [facility] WITH C/O BEING UNRESPONSIVE. PT WAS DISCHARGED YESTERDAY FROM [facility]. Source of Information: Patient Exam Limitations: No Limitations History of Present Illness Date Seen by Provider: Sep 25, 2021 Time Seen by Provider: 20:00 Initial Comments This 61-year-old man presents to the emergency room via EMS from [facility]. He had been discharged from the hospital yesterday after being treated for suspected sepsis and C. difficile colitis. This evening he was found nearly unresponsive. residential staff reported he leaned back, closed his eyes, and gaped open his mouth. He was responsive to sternal rub only at that moment. At that time oxygen saturation was 93% on 4 L nasal cannula, heart rate was 40, blood pressure was 80/46, and respirations were 8. He typically wears oxygen at 4 L by nasal cannula. Care has been complicated by noncompliance. Although patient had significant hypercarbia on his admission, he refused to wear BiPAP. Patient is afebrile at this time. He answers questions with one-word responses. He is able to move all extremities equally but appears generally weak. He denies any pain but says he is short of breath. He seems to be encephalopathic but does not appear to be exhibiting any focal neurologic deficits. Vital signs were unremarkable during assessment. Patient had a small DVT during his last admission and was started on Xarelto Allergies and Home Medications Allergies Coded Allergies: No Known Drug Allergies (Unverified , 09/15/21) Patient Home Medication List Home Medication List Reviewed: Yes Acetaminophen (Tylenol) 325 Mg Tablet, 650 MG PO Q6H PRN for PAIN-MILD (1-4), (Reported) Entered as Reported by: JASSON TERRY on 09/16/21 1356 Acetazolamide (Acetazolamide) 250 Mg Tablet, 250 MG PO DAILY Prescribed by: LC SANON on 09/24/21 1007 Cholestyramine (with Sugar) (Questran Packet) 4 Gm Powd.pack, 4 GM PO TID PRN for 60 Prescribed by: LC SANON on 09/24/21 1006 Famotidine (Famotidine) 20 Mg Tablet, 20 MG PO BID Prescribed by: LC SANON on 09/24/21 1006 Furosemide (Lasix) 40 Mg Tablet, 40 MG PO Q48H Prescribed by: LC SANON on 09/24/21 1006 Lisinopril (Lisinopril) 10 Mg Tablet, 10 MG PO DAILY Prescribed by: LC SANON on 09/24/21 1007 Nitrofurantoin Macrocrystal (Nitrofurantoin) 100 Mg Capsule, 100 MG PO BID Prescribed by: NARESH MARIA on 09/25/21 2313 Oxycodone HCl/Acetaminophen (Percocet 10-325 mg Tablet) 1 Each Tablet, 1 TAB PO BID PRN for PAIN-MODERATE Prescribed by: LC SANON on 09/24/21 1008 Rivaroxaban (Xarelto) 15 Mg Tablet, 15 MG PO BID WITH MEALS Prescribed by: LC SANON on 09/24/21 100 Rivaroxaban (Xarelto) 20 Mg Tablet, 20 MG PO DAILY Prescribed by: LC SANON on 09/24/21 100 Theophylline Anhydrous (Theophylline) 400 Mg Tablet.er, 400 MG PO DAILY Prescribed by: LC SANON on 09/24/211006 Vancomycin HCl (Vancocin HCl) 125 Mg Capsule, 125 MG PO QID Prescribed by: LC SANON on 09/24/21 1006 Discontinued Medications Cefdinir (Cefdinir) 300 Mg Capsule, 300 MG PO BID, (Reported) Entered as Reported by: JASSON TERRY on 09/16/21 1356 Furosemide (Furosemide) 80 Mg Tablet, 80 MG PO DAILY, (Reported) Entered as Reported by: NURA BOUCHER on 09/15/21 7759 Oxycodone HCl/Acetaminophen (Oxycodone-Acetaminophen 10-325) 1 Each Tablet, 1 EACH PO Q6H PRN for PAIN-MODERATE (5-7), (Reported) Entered as Reported by: JASSON TERRY on 09/16/21 1356 Review of Systems Review of Systems Constitutional: see HPI, weakness EENTM: no symptoms reported Respiratory: see HPI Cardiovascular: see HPI Gastrointestinal: no symptoms reported Genitourinary: no symptoms reported Musculoskeletal: no symptoms reported Skin: no symptoms reported Psychiatric/Neurological: See HPI Hematologic/Lymphatic: No Symptoms Reported Immunological/Allergic: no symptoms reported Past Mvbuylr-Nfncxr-Zdymao Hx Patient Social History Tobacco Use?: No Substance use?: No Alcohol Use?: No Pt feels they are or have been: No Immunizations Up To Date First/Initial COVID19 Vaccinat: JULY 2021 Second COVID19 Vaccination Balbir: SCHEDULED Third COVID19 Vaccination Date: JULY 2021 Past Medical History Surgery/Hospitalization HX: APRIL, CELLULITIS, SEPSIS, Surgeries: No (None reported) Respiratory: Yes Sleep Apnea, COPD Cardiac: Yes Deep Vein Thrombosis, Hypertension Neurological: No Genitourinary: Yes (Indwelling Yepez catheter) Gastrointestinal: Yes C-Diff Musculoskeletal: No Endocrine: No HEENT: No Cancer: No Psychosocial: No Physical Exam Vital Signs Vital Signs - First Documented Capillary Refill : Height, Weight, BMI Height: '" Weight: lbs. oz. kg; 51.18 BMI Method: General Appearance: No Apparent Distress, WD/WN, Obese HEENT: PERRL/EOMI, Other (Oropharynx rather dry) Neck: Normal Inspection; No JVD Respiratory: Lungs Clear, Normal Breath Sounds, No Accessory Muscle Use Cardiovascular: Regular Rate, Rhythm, No Edema, No Murmur Gastrointestinal: Non Tender, Soft Extremity: Normal Inspection, No Pedal Edema, Other (Portions of the legs wrapped with gauze) Neurologic/Psychiatric: Other (Mentation is sluggish but he does respond appropriately with one-word answers to questions and he does follow commands. Cognition improved with time. Moves all 4 extremities equally.) Skin: Normal Color, Warm/Dry Focused Exam Lactate Level 09/25/21 20:30: Lactic Acid Level 1.08 Lactic Acid Level Laboratory Tests Test 09/25/21 20:30 Lactic Acid Level 1.08 MMOL/L (0.50-2.00) Progress/Results/Core Measures Suspected Sepsis SIRS Temperature: Pulse: 116 Respiratory Rate: 34 Laboratory Tests 09/25/21 20:30: White Blood Count 13.1H Blood Pressure 134 /73 Mean: 93 09/25/21 20:30: Lactic Acid Level 1.08 Laboratory Tests 09/25/21 20:30: Creatinine 1.09, INR Comment 1.2, Platelet Count 327, Total Bilirubin 0.2 Results/Orders Lab Results Laboratory Tests Test 09/25/21 20:12 09/25/21 20:30 09/25/21 21:19 09/25/21 21:33 Range/Units Glucometer 158 H 70-110 MG/DL White Blood Count 13.1 H 4.3-11.0 10^3/uL Red Blood Count 3.17 L 4.30-5.52 10^6/uL Hemoglobin 8.7 L 13.3-17.7 g/dL Hematocrit 31 L 40-54 % Mean Corpuscular Volume 98 80-99 fL Mean Corpuscular Hemoglobin 27 25-34 pg Mean Corpuscular Hemoglobin Concent 28 L 32-36 g/dL Red Cell Distribution Width 19.2 H 10.0-14.5 % Platelet Count 327 130-400 10^3/uL Mean Platelet Volume 9.5 9.0-12.2 fL Immature Granulocyte % (Auto) 7 % Neutrophils (%) (Auto) 74 42-75 % Lymphocytes (%) (Auto) 11 L 12-44 % Monocytes (%) (Auto) 7 0-12 % Eosinophils (%) (Auto) 1 0-10 % Basophils (%) (Auto) 1 0-10 % Neutrophils # (Auto) 9.6 H 1.8-7.8 10^3/uL Lymphocytes # (Auto) 1.4 1.0-4.0 10^3/uL Monocytes # (Auto) 0.9 0.0-1.0 10^3/uL Eosinophils # (Auto) 0.2 0.0-0.3 10^3/uL Basophils # (Auto) 0.1 0.0-0.1 10^3/uL Immature Granulocyte # (Auto) 1.0 H 0.0-0.1 10^3/uL Prothrombin Time 15.4 H 12.2-14.7 SEC INR Comment 1.2 0.8-1.4 Activated Partial Thromboplast Time 37 H 24-35 SEC Sodium Level 147 H 135-145 MMOL/L Potassium Level 3.1 L 3.6-5.0 MMOL/L Chloride Level 101 98-107 MMOL/L Carbon Dioxide Level 36 H 21-32 MMOL/L Anion Gap 10 5-14 MMOL/L Blood Urea Nitrogen 9 7-18 MG/DL Creatinine 1.09 0.60-1.30 MG/DL Estimat Glomerular Filtration Rate 77 BUN/Creatinine Ratio 8 Glucose Level 171 H 70-105 MG/DL Lactic Acid Level 1.08 0.50-2.00 MMOL/L Calcium Level 8.2 L 8.5-10.1 MG/DL Corrected Calcium 9.2 8.5-10.1 MG/DL Total Bilirubin 0.2 0.1-1.0 MG/DL Aspartate Amino Transf (AST/SGOT) 20 5-34 U/L Alanine Aminotransferase (ALT/SGPT) 33 0-55 U/L Alkaline Phosphatase 57 40-136 U/L C-Reactive Protein High Sensitivity 3.12 H 0.00-0.50 MG/DL B-Type Natriuretic Peptide 251.6 H <100.0 PG/ML Total Protein 5.8 L 6.4-8.2 GM/DL Albumin 2.7 L 3.2-4.5 GM/DL Procalcitonin 0.46 H <0.10 NG/ML Blood Gas Puncture Site R RADIAL Blood Gas Patient Temperature 37.3 Arterial Blood pH 7.29 *L 7.37-7.43 Arterial Blood Partial Pressure CO2 86 *H 35-45 MMHG Arterial Blood Partial Pressure O2 70 L 79-93 MMHG Arterial Blood HCO3 39 H 23-27 MMOL/L Arterial Blood Total CO2 42.0 *H 21.0-31.0 MMOL/L Arterial Blood Oxygen Saturation 94 94-100 % Arterial Blood Base Excess 12.6 H -2.5-2.5 MMOL/L Kendall Test NA Blood Gas Ventilator Setting NO Blood Gas Inspired Oxygen 3L Urine Color DARK YELLOW Urine Clarity CLOUDY Urine pH 6.0 5-9 Urine Specific Chase >=1.030 1.016-1.022 Urine Protein 2+ H NEGATIVE Urine Glucose (UA) NEGATIVE NEGATIVE Urine Ketones NEGATIVE NEGATIVE Urine Nitrite POSITIVE H NEGATIVE Urine Bilirubin NEGATIVE NEGATIVE Urine Urobilinogen 0.2 < = 1.0 MG/DL Urine Leukocyte Esterase TRACE H NEGATIVE Urine RBC (Auto) 3+ H NEGATIVE Urine RBC 10-25 H /HPF Urine WBC 25-50 H /HPF Urine Crystals PRESENT H /LPF Urine Amorphous Sediment FEW EULALIA URATES H /LPF Urine Bacteria FEW H /HPF Urine Casts PRESENT /LPF Urine Hyaline Casts 10-25 H /LPF Urine Granular Casts 2-5 H /LPF Urine Mucus SMALL H /LPF Urine Culture Indicated CULTURE PENDING Test 09/25/21 21:56 Range/Units Influenza Type A (RT-PCR) Not Detected Not Detecte Influenza Type B (RT-PCR) Not Detected Not Detecte SARS-CoV-2 RNA (RT-PCR) Not Detected Not Detecte My Orders Orders - NARESH MARIN MD Cbc With Automated Diff (09/25/21 20:01) Comprehensive Metabolic Panel (09/25/21 20:) Urinalysis (09/25/21 20:01) Urine Culture (09/25/21 20:) Protime With Inr (09/25/21 20:) Partial Thromboplastin Time (09/25/21 20:01) Chest 1 View, Ap/Pa Only (09/25/21 20:) Ed Iv/Invasive Line Start (09/25/21 20:01) Vital Signs Adult Sepsis Patie Q15M (09/25/21 20:) O2 (09/25/21 20:) Remove Rings In Anticipation O (09/25/21 20:) Lactic Acid Analyzer (09/25/21 20:) Ct Head Wo (09/25/21 20:) Arterial Blood Gas (09/25/21 20:) Hs C Reactive Protein (09/25/21 20:) Procalcitonin (Pct) (09/25/21 20:) Accucheck Stat ONCE (09/25/21 20:01) Bnp [place] (09/25/21 20:57) Covid 19 Inhouse Test (09/25/21:22) Influenza A And B By Pcr (09/25/21:22) Potassium Cl 10meq/50ml Ivpb (Kcl 10 Meq (09/25/21 21:30) Nitrofurantoin Capsule,Macro (Macrobid C (09/25/21 23:00) Potassium Chloride (Tablet) (Klor Con Ta (09/25/21 23:00) Medications Given in ED Current Medications Medications Dose Ordered Sig/Magda Route Start Time Stop Time Status Last Admin Dose Admin Nitrofurantoin Macrocrystals 100 mg ONCE ONCE PO 09/25/21 23:00 09/25/21 23:01 DC 09/25/21 22:55 100 MG Potassium Chloride 20 meq ONCE ONCE PO 09/25/21 23:00 09/25/21 23:01 DC 09/25/21 22:55 20 MEQ Vital Signs/I&O 09/25/21 09/25/21 09/25/21 19:55 19:55 23:30 Temp 37.1 37.1 Pulse 116 104 Resp 34 30 B/P (MAP) 134/73 (93) 127/79 Pulse Ox 94 94 94 O2 Delivery Nasal Cannula Nasal Cannula Nasal Cannula O2 Flow Rate 3.00 3.00 3.00 3.00 Capillary Refill : Blood Pressure Mean: 93 Point of Care Testing Finger Stick Blood Glucose: 158 Progress Note : Progress Note Patient was thoroughly evaluated. Labs were comparable to his discharge labs. CT of the head showed no acute abnormalities. Cognition improved during his stay. He eventually sat up and required that he was not going to stay in the hospital and did not want to be here. He was found to have a urinary tract inf ection but otherwise there was no significant change on work-up from his discharge status. I discussed his case with Dr. Sanon. She declined admission and believes there should be further discussion regarding the possibility of hospice, especially since patient refuses to use CPAP or BiPAP. Potassium was replaced orally and he was started on Macrobid for treatment of UTI. [facility] Diagnostic Imaging Diagonstic Imaging: Xray Plain Films/CT/US/NM/MRI: chest Comments NAME: BENNETT KENDALL [facility] REC#: [id number] PT STATUS: REG ER : 1960 PHYSICIAN: NARESH MARIN MD ADMIT DATE: 09/25/21/ER Signed Date of Exam:09/25/21 CHEST 1 VIEW, AP/PA ONLY EXAMINATION: Chest 1 view HISTORY: AMS COMPARISON: 09/21/2021 FINDINGS: Stable enlargement of the cardiac silhouette. Increasing interstitial and airspace opacities throughout both lungs. Mild blunting of the right costophrenic angle. No pneumothorax. The osseous structures are intact. IMPRESSION: 1. Increasing right pleural effusion with patchy opacities throughout both lungs. Findings can be seen with worsening edema or pneumonia. Dictated by: Dictated on workstation # [id number] Dict: 09/25/212023 Trans: 09/25/212045 [facility] [id number] Interpreted by: CONNOR CHOWDHURY DO Electronically signed by: CONNOR CHOWDHURY DO 09/25/212045 Diagonstic Imaging: CT Plain Films/CT/US/NM/MRI: head Comments NAME: BENNETT KENDALL [facility] REC#: [id number] PT STATUS: REG ER : 1960 PHYSICIAN: NARESH MARIN MD ADMIT DATE: 09/25/21/ER Signed Date of Exam:09/25/21 CT HEAD WO EXAMINATION: CT head without contrast. TECHNIQUE: Multiple contiguous axial images were obtained through the brain without the use of intravenous contrast. All CT scans use one or more of the following dose optimizing techniques: automated exposure control, MA and/or KvP adjustment based on patient size and exam type or iterative reconstruction. HISTORY: Altered mental status COMPARISON: None available. FINDINGS: The ventricles and sulci are normal. No abnormal attenuation of brain parenchyma is present. No acute intracranial hemorrhage or abnormal extra-axial fluid collections are present. Calcification of the intracranial ICAs. No hyperdense vessel. The calvarium is intact. The mastoid air cells are clear. Mucosal thickening of the paranasal sinuses. The orbits are normal. IMPRESSION: 1. No acute intracranial abnormality. Dictated by: Dictated on workstation # [id number] Dict: 09/25/212043 Trans: 09/25/212101 [facility] [id number] Interpreted by: CONNOR CHOWDHURY DO Electronically signed by: CONNOR CHOWDHURY DO 09/25/212101 Departure Impression Primary Impression: Acute and chronic respiratory failure with hypoxia Additional Impressions: Hypokalemia Urinary tract infection Qualified Codes: N39.0 - Urinary tract infection, site not specified Altered mental status Qualified Codes: R41.82 - Altered mental status, unspecified Disposition: 01 HOME, SELF-CARE Condition: Improved Departure-Patient Inst. Decision time for Depature: 22:35 Referrals: CARLOS SHORT MD (PCP/Family) Primary Care Physician Patient Instructions: Urinary Tract Infections in Adults Add. Discharge Instructions: Encourage compliance with oxygen therapy, breathing treatments, and medications. Follow-up with primary care provider soon as possible. Complete the entire course of antibiotics as prescribed and review urine culture results with primary care provider next week. Please note that this antibiotic is likely to make the urine orange or red in color. Call with questions or concerns. All discharge instructions reviewed with patient and/or family. Voiced understanding. Scripts Nitrofurantoin Macrocrystal (Nitrofurantoin) 100 Mg Capsule 100 MG PO BID, #14 CAP 0 Refills Prov: NARESH MARIN MD 09/25/21 Copy Copies To 1: CARLOS SHORT MD, JOSHUA T MD Sep 25, 2021 23:05
[2021-09-25] MEDS ORDERED: NITR100C PO (23:13)
[2021-09-25 23:30] VITALS: BP 127/79
== END 2021-09-25 23:41 | disposition home or self-care (01) ==
LOC: EDUNIT# 19:55 → ER 19:57
DX: J96.21 Acute and chronic respiratory failure with hypoxia (principal); N39.0 Urinary tract infection, site not specified; E87.6 Hypokalemia; R41.82 Altered mental status, unspecified; I10 Essential (primary) hypertension; J44.9 Chronic obstructive pulmonary disease, unspecified; E66.9 Obesity, unspecified; Z68.43 Body mass index [BMI] 50.0-59.9, adult; Z99.81 Dependence on supplemental oxygen; Z79.899 Other long term (current) drug therapy; Z20.822 Contact with and (suspected) exposure to COVID-19
CPT/HCPCS: 36415; 70450; 71045; 80053; 81000; 82805; 82947; 83605; 83880; 84145; 85025; 85610; 85730; 86141; 87077; 87088; 87636